=== PATIENT | female | born 1930 | race Caucasian/White ===

== ENCOUNTER 2016-02-18 10:21 | Inpatient (IN) | payer OTHER, MEDICARE ==
[~2016-02-18] VITALS: Ht 165.1 cm; Wt 71.5 kg
[~2016-02-18 10:21] MED LIST: ACET325T96 PO; ASPI325T39 PO; BENZ10LO2 MT; CETI10TA84 PO; CHOL1000 PO; CLC100X PO; DEXT100S; DEXTLIQ PO; DPKSR250 PO; DPKSR500 PO; FERR325T PO; FURO-85 PO; LEVO137T3 PO; LOPE1TAB25 PO; MCRK20 PO; MOML PO; NF84 PO; SENN-104 PO; SENN8.6T15 PO; TRAM-10 PO
--- NOTE | 2016-02-18 10:39 | EMERGENCY ROOM VISIT NOTE ---
History Report prepared by Jenny: Lino Lorenzo Under the Supervision of: Dr. Serenity Hernandez M.D. First contact with patient: 10:25 Chief Complaint: SHORTNESS OF BREATH Stated Complaint: SHORTNESS OF BREATH History of Present Illness The patient is an 85 year old female who presents to the Emergency Room with complaints of a persistent illness that started around a week ago. Per the patient's family, the patient's illness started out with a really sore throat, and then she got this cough that is not going away. The patient has graveling in her chest. Her highest fever has been around 101. She was seen here 6 days ago, and was put on a Z-pac, but the patient is just not fighting her illness off. There is concern among the family of the patient potentially having pneumonia, the flu, or whooping cough. Per the patient, she cannot sleep at night, and is very weak. She then sleeps all day. The patient denies any abdominal pain or swelling in her legs. She has been compliant with all her medications. She lives in a [facility]. The patient denies any history of heart problems. She is on oxygen at home. Source of History: patient, family, nursing staff Onset: Around a week ago Position: other (global - illness) Timing: other (persistent) Associated Symptoms: + cough, + fevers, + sorethroat, + weakness, No abdominal pain Note: Associated symptoms: Denies any swelling in her legs. Graveling in chest. Review of Systems See HPI for pertinent positives & negatives. A total of 10 systems reviewed and were otherwise negative. 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 (14) Rhabdomyolysis Family History Cancer Kidney disease Social History Smoking Status: Former Smoker Alcohol Use: occasionally Drug Use: none Marital Status: Housing Status: [facility] Occupation Status: retired Current/Historical Medications Scheduled Acetaminophen Tab (Tylenol), 650 MG PO HS Aspirin (Aspirin Ec), 325 MG PO DAILY Azithromycin (Zithromax), 250 MG PO DAILY Calcium Carbonate (Calcium Carbonate), 1 TAB PO DAILY Cetirizine (Zyrtec), 10 MG PO HS Cholecalciferol (Vitamin D3), 1 TAB PO DAILY Divalproex Sodium (Divalproex Sodium ER), 250 MG PO DAILY Divalproex Sodium (Divalproex Sodium ER), 500 MG PO HS Docusate Sodium (Colace), 100 MG PO BID Ferrous Sulfate (Ferrous Sulfate), 325 MG PO BID Furosemide (Lasix), 20 MG PO BID Guaifenesin Ext Rel (Mucinex Ext Rel), 600 MG PO BID Ipratropium-Albuterol (Duoneb), 1 TREATMENT INH QID Levothyroxine Sodium (Levothyroxine Sodium), 1 TAB PO DAILY Loperamide Hcl (Loperamide Hcl), 2 MG PO UD Potassium Chloride (Klor-Con M20), 20 MEQ PO QAM Sennosides-Docusate Sodium (Sennalax-S), 1 TAB PO DAILY Scheduled PRN Acetaminophen Tab (Tylenol), 650 MG PO Q4 PRN for Pain or Fever Benzocaine-Menthol (Mouth-Thro (Cepacol Sore Throat), 1 JEAN APUL MT Q4 PRN for SORE THROAT Dextromethorphan-Guaifenesin (Tussin Dm), 5 ML PO Q4 PRN for Cough Magnesium Hydroxide (Milk Of Magnesia), 30 ML PO for Constipation Sennosides-Docusate Sodium (Senna-S), 1 TAB PO Q12 PRN for Constipation Tramadol (Ultram), 50 MG PO Q6 PRN for Pain Allergies Coded Allergies: No Known Allergies (Unverified , 02/12/16) Physical Exam Vital Signs Date Time Temp Pulse Resp B/P Pulse Ox O2 Delivery O2 Flow Rate FiO2 02/18/16 12:14 108 24 112/78 94 Nasal Cannula 3.0 02/18/16 12:03 97 02/18/16 11:28 99 25 113/78 93 Nasal Cannula 2.0 02/18/16 10:33 87 Room Air 02/18/16 10:33 94 Nasal Cannula 2.0 02/18/16 10:31 36.9 105 24 121/66 97 Room Air 02/18/16 10:28 112 Physical Exam CONSTITUTIONAL: Mild distress, on oxygen nasal cannula. HEENT: No icterus, moist mucous membranes NECK: No meningismus, trachea is midline. CARDIOVASCULAR: Regular rate, normal perfusion RESPIRATORY: Very coarse bilaterally with possible rales and rhonchi. Wheezing. GASTROINTESTINAL: Non-tender GENITOURINARY: No flank tenderness MUSCULOSKELETAL: Full range of motion NEUROLOGIC: No acute gross focal deficits. PSYCHIATRIC: Normal affect SKIN: Normal for ethnicity. Medical Decision & Procedures ER Provider Diagnostic Interpretation: X-ray results as stated below per interpretation by me and the radiologist. CHEST 2 VIEWS ROUTINE HISTORY: cough, fever COMPARISON: Chest 02/12/2016. FINDINGS: No pneumothorax. The heart remains mildly enlarged. Trace bilateral pleural effusions. Diffuse interstitial thickening and patchy airspace opacities within the periphery of the right lung and within the lung bases has progressed. A 14 mm nodular density within the right upper lobe persists. IMPRESSION: 1. Progressive interstitial thickening and patchy airspace opacities within the periphery of the right lung and lung bases. This may represent progression of the pulmonary edema or an atypical pneumonia. Recommend follow to ensure resolution. 2. Cardiomegaly and trace bilateral pleural effusions. 3. A 14 mm right upper lobe nodule is again noted. Electronically signed by: Brian Perez M.D. 02/18/2016 11:16 AM Dictated Date/Time: 02/18/2016 11:13 AM Laboratory Results 02/18/16 10:45 Red Blood Count 3.53, Mean Corpuscular Volume 98.6, Mean Corpuscular Hemoglobin 32.0, Mean Corpuscular Hemoglobin Concent 32.5, Mean Platelet Volume 11.1, Neutrophils (%) (Auto) 75.6, Lymphocytes (%) (Auto) 8.0, Monocytes (%) (Auto) 14.8, Eosinophils (%) (Auto) 0.2, Basophils (%) (Auto) 0.3, Neutrophils # (Auto ) 7.74, Lymphocytes # (Auto) 0.82, Monocytes # (Auto) 1.52, Eosinophils # (Auto ) 0.02, Basophils # (Auto) 0.03 02/18/16 10:45 Test 02/18/16 10:45 02/18/16 11:15 02/18/16 13:10 White Blood Count 10.24 K/uL (4.8-10.8) Red Blood Count 3.53 M/uL (4.2-5.4) Hemoglobin 11.3 g/dL (12.0-16.0) Hematocrit 34.8 % (37-47) Mean Corpuscular Volume 98.6 fL (80-100) Mean Corpuscular Hemoglobin 32.0 pg (25-34) Mean Corpuscular Hemoglobin Concent 32.5 g/dl (32-36) Platelet Count 237 K/uL (130-400) Mean Platelet Volume 11.1 fL (7.4-10.4) Neutrophils (%) (Auto) 75.6 % Lymphocytes (%) (Auto) 8.0 % Monocytes (%) (Auto) 14.8 % Eosinophils (%) (Auto) 0.2 % Basophils (%) (Auto) 0.3 % Neutrophils # (Auto) 7.74 K/uL (1.4-6.5) Lymphocytes # (Auto) 0.82 K/uL (1.2-3.4) Monocytes # (Auto) 1.52 K/uL (0.11-0.59) Eosinophils # (Auto) 0.02 K/uL (0-0.5) Basophils # (Auto) 0.03 K/uL (0-0.2) RDW Standard Deviation 52.9 fL (36.4-46.3) RDW Coefficient of Variation 14.8 % (11.5-14.5) Immature Granulocyte % (Auto) 1.1 % Immature Granulocyte # (Auto) 0.11 K/uL (0.00-0.02) Nucleated RBC Absolute Count (auto) 0.05 K/uL (0-0) Nucleated Red Blood Cells % 0.5 % Anion Gap 8.0 mmol/L (3-11) Est Creatinine Clear Calc Drug Dose 48.0 ml/min Estimated GFR () 71.9 Estimated GFR (Non- 62.0 BUN/Creatinine Ratio 28.1 (10-20) Calcium Level 9.0 mg/dl (8.5-10.1) Phosphorus Level 2.9 mg/dl (2.5-4.9) Magnesium Level 2.3 mg/dl (1.8-2.4) Total Bilirubin 0.4 mg/dl (0.2-1) Aspartate Amino Transf (AST/SGOT) 14 U/L (15-37) Alanine Aminotransferase (ALT/SGPT) 14 U/L (12-78) Alkaline Phosphatase 50 U/L (45-117) Pro-B-Type Natriuretic Peptide 26781 pg/ml (0-1800) Total Protein 6.5 gm/dl (6.4-8.2) Albumin 2.3 gm/dl (3.4-5.0) Globulin 4.2 gm/dl (2.5-4.0) Albumin/Globulin Ratio 0.5 (0.9-2) Influenza Type A Antigen Neg for Influ A (NEG) Influenza Type B Antigen Neg for Influ B (NEG) Labs reviewed by ED physician. Medications Administered Medications (Trade) Dose Ordered Sig/Nasir Route Start Time Stop Time Status Last Admin Dose Admin Albuterol/ Ipratropium (Duoneb) 3 ml QIDR INH 02/18/16 12:00 03/19/16 11:59 02/18/16 12:46 3 ML Albuterol/ Ipratropium (Duoneb) 3 ml STK-MED ONCE .ROUTE 02/18/16 10:48 02/18/16 10:49 DC 02/18/16 10:53 3 ML Furosemide (Lasix Inj) 40 mg NOW STAT IV 02/18/16 12:44 02/18/16 12:45 DC 02/18/16 12:52 40 MG ED Course 1030: Past medical records reviewed. The patient was evaluated in room A2. A complete history and physical examination was performed. 1200: Ordered Duoneb 3 ml INH. 1244: Ordered Lasix Inj 40 mg IV. 1251: Ordered Ceftriaxone Sodium 1 gm/Sodium Chloride 50 ml @ 100 mls/hr IV. 1252: I reevaluated the patient and she is resting comfortably. The patient verbally expressed understanding and agreement of the treatment plan. The patient will be evaluated for further treatment. 1300: Ordered Azithromycin 500 mg/Dextrose 255 ml @ 125 mls/hr IV. 1300: I discussed the patient with Marivel Narvaez - she will evaluate the patient for further treatment. Medical Decision Differential diagnoses include: viral syndrome, CHF, pneumonia. 85-year-old with history of congestive heart failure presents to emergency room with family for evaluation of continued upper respiratory complaints and worsening cough and shortness of breath. She was noted to be recently in the emergency room one week ago prescribe antibiotics receive been compliant. Was reportedly particular course in all dukes with possible wheezes and definitive rales bilaterally at the bases. She was reportedly hypoxic 85% on room air prior to arrival but satting well at about 93% on 2 L nasal cannula. She is on home oxygen. Pediatric peptide noted to be very high in the context of a normal creatinine and chest x-ray equivocal for CHF versus pneumonia. Review of systems was notable for fever to 101 over the last few days and antibiotic subsequently ordered. Influenza negative. Admission arranged with hospital service. Consults Time Called: 1255 Consulting Physician: Marivel Narvaez Returned Call: 1300 I discussed the patient with Marivel Narvaez - she will evaluate the patient for further treatment. Impression Primary Impression: Congestive heart failure Additional Impression: Viral syndrome Scribe Attestation The scribe's documentation has been prepared under my direction and personally reviewed by me in its entirety. I confirm that the note above accurately reflects all work, treatment, procedures, and medical decision making performed by me. Departure Information Dispostion Being Evaluated By Hospitalist Referrals No Doctor, Assigned (PCP) Patient Instructions A Signature Page, My [facility]
[2016-02-18] MEDS ORDERED: ALBUT/IPRATROP 3MG/0.5MG NEB 3 ML VIAL ONE (10:48)
[2016-02-18 11:14] LABS: BASO % 0.3 %; BASO ABS # 0.03 K/uL (0-0.2); COMPLETE YES; EOS % 0.2 %; HEMATOCRIT 34.8 % (37-47); IG% 1.1 %; LYMPH ABS # 0.82 K/uL (1.2-3.4); MEAN CELL VOLUME 98.6 fL (80-100); MEAN CORPUSCULAR HGB CONC 32.5 g/dl (32-36); MEAN PLATELET VOLUME 11.1 fL (7.4-10.4); MONO % 14.8 %; NEUT % 75.6 %; PLATELET COUNT 237 K/uL (130-400); RED BLOOD COUNT 3.53 M/uL (4.2-5.4); WHITE BLOOD COUNT 10.24 K/uL (4.8-10.8)
--- NOTE | 2016-02-18 11:18 | DIAGNOSTIC IMAGING REPORT ---
CHEST 2 VIEWS ROUTINE HISTORY: cough, fever COMPARISON: Chest 02/12/2016. FINDINGS: No pneumothorax. The heart remains mildly enlarged. Trace bilateral pleural effusions. Diffuse interstitial thickening and patchy airspace opacities within the periphery of the right lung and within the lung bases has progressed. A 14 mm nodular density within the right upper lobe persists. IMPRESSION: 1. Progressive interstitial thickening and patchy airspace opacities within the periphery of the right lung and lung bases. This may represent progression of the pulmonary edema or an atypical pneumonia. Recommend follow to ensure resolution. 2. Cardiomegaly and trace bilateral pleural effusions. 3. A 14 mm right upper lobe nodule is again noted. Electronically signed by: Brian Perez M.D. 02/18/2016 11:16 AM Dictated Date/Time: 02/18/2016 11:13 AM
[2016-02-18] MEDS ORDERED: IPRASOL4 INH (11:20)
[2016-02-18] MEDS ORDERED: AZIT250T PO (11:20)
[2016-02-18] MEDS ORDERED: GUAI1TAB55 PO (11:20)
[2016-02-18 11:36] LABS: ALB/GLOB RATIO 0.5 (0.9-2); BUN/CREATININE RATIO 28.1 (10-20); CREATININE 0.85 mg/dl (0.60-1.20); MAGNESIUM 2.3 mg/dl (1.8-2.4); PHOSPHORUS 2.9 mg/dl (2.5-4.9); POTASSIUM 4.8 mmol/L (3.5-5.1)
[2016-02-18] MEDS ORDERED: ALBUT/IPRATROP 3MG/0.5MG NEB 3 ML VIAL INH SCH (12:00)
[2016-02-18] MEDS ORDERED: FUROSEMIDE 40 MG/4 ML VIAL IV STA (12:44)
[2016-02-18] MEDS ORDERED: SODIUM CHLOR 0.9% IV STA (12:51)
[2016-02-18] MEDS ORDERED: AD VAN IV STA (12:51)
[2016-02-18] MEDS ORDERED: CEFTRIAXONE SOD IV STA (12:51)
[2016-02-18] MEDS ORDERED: AZITHROMYCIN IV 500 MG in DEXTROSE 5% 250ML 250 ML IV ONE (13:00)
[2016-02-18 13:57] LABS: URINE APPEARANCE CLEAR (CLEAR); URINE BILIRUBIN NEG (NEG); URINE COLOR YELLOW; URINE NITRITE NEG (NEG); URINE PH 6.5 (4.5-7.5); URINE SPECIFIC GRAVITY 1.013 (1.000-1.030); UROBILINOGEN NEG (NEG); ZZUR CULT IF INDIC CLEAN CATCH NO
[2016-02-18 13:58] LABS: MANUAL MICROSCOPIC REQUIRED? NO; REVIEW REQ? NO
[2016-02-18] MEDS ORDERED: NITROGLYCERIN 0.4 MG SL PER TAB CHARGE SL PRN (14:15)
[2016-02-18] MEDS ORDERED: TRAMADOL HCL 50 MG TAB PO PRN (14:15)
[2016-02-18] MEDS ORDERED: ONDANSETRON INJ 2 MG/ML 2 ML VIAL IV PRN (14:15)
[2016-02-18] MEDS ORDERED: ACETAMINOPHEN 325 MG TAB PO PRN (14:15)
[2016-02-18] MEDS ORDERED: COUGH DROP (SUGAR FREE) LOZ 24 LOZ/1 BOX PO PRN (14:15)
--- NOTE | 2016-02-18 14:26 | History and Physical ---
History & Physical Date & Time of Service: Feb 18, 2016 at 13:52 Chief Complaint: Shortness Of Breath Primary Care Physician: Frantz Valdez D.O. History of Present Illness Source: patient, hospital records, intermediate Patient seen and examined. 85 year old female with PMHx of Alzheimer's dementia , Afib, hypothyroidism, CKD and diastolic CHF presents to the ED with hypoxia at [facility] this morning. Patient reports that she has had a sore throat for over a week now. She reports she now has a cough that is wet but not usually productive. She states the intermediate has told her she has been having fevers. She reports she has been weak and tired because her cough keeps her up all night. She denies chest pain, SOB, nausea, vomiting, diarrhea, dysuria, calf pain and edema. I spoke with [facility] who stated this morning patient's pulse ox was in the 80s, they report she had a fever of 101.3 and that her lungs sounded coarse so they sent her to the ED for further evaluation. Patient is not on oxygen at baseline. Patient has been on a Zpak for four days. In the ED patient was hypoxic on RA. She will mildly tachycardic , but afebrile, BNP was 14K, CXR showed possible pneumonia versus pulmonary edema. She received Lasix, duonebs, azithromycin and Rocephin. She will be admitted for further workup and treatment. 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 Status: Chronic (14) Rhabdomyolysis Status: Resolved Family History Cancer Kidney disease Social History Smoking Status: Former Smoker Alcohol Use: none Drug Use: none Marital Status: Housing status: intermediate Occupational Status: retired Immunizations History of Influenza Vaccine: N/A History of Tetanus Vaccine?: Yes History of Pneumococcal: Yes History of Hepatitis B Vaccine: Unknown Multi-Drug Resistant Organisms History of MDRO: No Allergies Coded Allergies: No Known Allergies (Unverified , 02/12/16) Home Medications Scheduled Acetaminophen Tab (Tylenol), 650 MG PO HS Aspirin (Aspirin Ec), 325 MG PO DAILY Azithromycin (Zithromax), 250 MG PO DAILY Calcium Carbonate (Calcium Carbonate), 1 TAB PO DAILY Cetirizine (Zyrtec), 10 MG PO HS Cholecalciferol (Vitamin D3), 1 TAB PO DAILY Divalproex Sodium (Divalproex Sodium ER), 250 MG PO DAILY Divalproex Sodium (Divalproex Sodium ER), 500 MG PO HS Docusate Sodium (Colace), 100 MG PO BID Ferrous Sulfate (Ferrous Sulfate), 325 MG PO BID Furosemide (Lasix), 20 MG PO BID Guaifenesin Ext Rel (Mucinex Ext Rel), 600 MG PO BID Ipratropium-Albuterol (Duoneb), 1 TREATMENT INH QID Levothyroxine Sodium (Levothyroxine Sodium), 1 TAB PO DAILY Loperamide Hcl (Loperamide Hcl), 2 MG PO UD Potassium Chloride (Klor-Con M20), 20 MEQ PO QAM Sennosides-Docusate Sodium (Sennalax-S), 1 TAB PO DAILY Scheduled PRN Acetaminophen Tab (Tylenol), 650 MG PO Q4 PRN for Pain or Fever Benzocaine-Menthol (Mouth-Thro (Cepacol Sore Throat), 1 JEAN PAUL MT Q4 PRN for SORE THROAT Dextromethorphan-Guaifenesin (Tussin Dm), 5 ML PO Q4 PRN for Cough Magnesium Hydroxide (Milk Of Magnesia), 30 ML PO for Constipation Sennosides-Docusate Sodium (Senna-S), 1 TAB PO Q12 PRN for Constipation Tramadol (Ultram), 50 MG PO Q6 PRN for Pain Review of Systems See above for pertinent positives & negatives. A total of 10 systems reviewed and were otherwise negative. Physical Exam Vital Signs Date Time Temp Pulse Resp B/P Pulse Ox O2 Delivery O2 Flow Rate FiO2 02/18/16 13:47 114 22 118/82 94 Nasal Cannula 3.0 02/18/16 12:14 108 24 112/78 94 Nasal Cannula 3.0 1/6/17 12:03 97 02/18/16 11:28 99 25 113/78 93 Nasal Cannula 2.0 02/18/16 10:33 87 Room Air 02/18/16 10:33 94 Nasal Cannula 2.0 02/18/16 10:31 36.9 105 24 121/66 97 Room Air 02/18/16 10:28 112 General Appearance: + pertinent finding (WD/WN 85 year old female sitting at the edge of the bed eating lunch, in NAD ) Head: normocephalic, atraumatic Eyes: PERRL, EOMI, sclerae normal ENT: hearing grossly normal, pharynx normal Neck: supple, no JVD, trachea midline Respiratory/Chest: chest non-tender, no respiratory distress, no accessory muscle use, + crackles (right base, otherwise clear ) Cardiovascular: no edema, no gallop, no JVD, no murmur, normal peripheral pulses, + irregularly irregular (rate in the low 100s ) Abdomen/GI: normal bowel sounds, non tender, soft Back: normal inspection, no muscle spasm Extremities/Musculoskelatal: no calf tenderness, normal capillary refill, no pedal edema Neurologic/Psych: + pertinent finding (Alert, oriented to person, place, and situation, not oriented to time. No motor or sensory deficits noted on gross exam ) Skin: normal color, warm/dry, no rash Lymphatic: no adenopathy Diagnostics Laboratory Results Results Past 24 Hours Test 02/18/16 10:45 02/18/16 11:15 02/18/16 13:10 02/18/16 13:30 Range/Units White Blood Count 10.24 4.8-10.8 K/uL Red Blood Count 3.53 4.2-5.4 M/uL Hemoglobin 11.3 12.0-16.0 g/dL Hematocrit 34.8 37-47 % Mean Corpuscular Volume 98.6 80-100 fL Mean Corpuscular Hemoglobin 32.0 25-34 pg Mean Corpuscular Hemoglobin Concent 32.5 32-36 g/dl Platelet Count 237 130-400 K/uL Mean Platelet Volume 11.1 7.4-10.4 fL Neutrophils (%) (Auto) 75.6 % Lymphocytes (%) (Auto) 8.0 % Monocytes (%) (Auto) 14.8 % Eosinophils (%) (Auto) 0.2 % Basophils (%) (Auto) 0.3 % Neutrophils # (Auto) 7.74 1.4-6.5 K/uL Lymphocytes # (Auto) 0.82 1.2-3.4 K/uL Monocytes # (Auto) 1.52 0.11-0.59 K/uL Eosinophils # (Auto) 0.02 0-0.5 K/uL Basophils # (Auto) 0.03 0-0.2 K/uL RDW Standard Deviation 52.9 36.4-46.3 fL RDW Coefficient of Variation 14.8 11.5-14.5 % Immature Granulocyte % (Auto) 1.1 % Immature Granulocyte # (Auto) 0.11 0.00-0.02 K/uL Nucleated RBC Absolute Count (auto) 0.05 0-0 K/uL Nucleated Red Blood Cells % 0.5 % Sodium Level 141 136-145 mmol/L Potassium Level 4.8 3.5-5.1 mmol/L Chloride Level 102 98-107 mmol/L Carbon Dioxide Level 31 21-32 mmol/L Anion Gap 8.0 3-11 mmol/L Blood Urea Nitrogen 24 7-18 mg/dl Creatinine 0.85 0.60-1.20 mg/dl Est Creatinine Clear Calc Drug Dose 48.0 ml/min Estimated GFR () 71.9 Estimated GFR (Non- 62.0 BUN/Creatinine Ratio 28.1 10-20 Random Glucose 131 70-99 mg/dl Calcium Level 9.0 8.5-10.1 mg/dl Phosphorus Level 2.9 2.5-4.9 mg/dl Magnesium Level 2.3 1.8-2.4 mg/dl Total Bilirubin 0.4 0.2-1 mg/dl Aspartate Amino Transf (AST/SGOT) 14 15-37 U/L Alanine Aminotransferase (ALT/SGPT) 14 12-78 U/L Alkaline Phosphatase 50 45-117 U/L Troponin I 0.034 0-0.045 ng/ml Pro-B-Type Natriuretic Peptide 27398 0-1800 pg/ml Total Protein 6.5 6.4-8.2 gm/dl Albumin 2.3 3.4-5.0 gm/dl Globulin 4.2 2.5-4.0 gm/dl Albumin/Globulin Ratio 0.5 0.9-2 Influenza Type A Antigen Neg for Influ A NEG Influenza Type B Antigen Neg for Influ B NEG Microbiology Results 02/18/16 Blood Culture, Received Pending 02/18/16 Blood Culture, Received Pending Diagnostic Radiology CXR Per radiologist read: IMPRESSION: 1. Progressive interstitial thickening and patchy airspace opacities within the periphery of the right lung and lung bases. This may represent progression of the pulmonary edema or an atypical pneumonia. Recommend follow to ensure resolution. 2. Cardiomegaly and trace bilateral pleural effusions. 3. A 14 mm right upper lobe nodule is again noted. EKG Atrial Fibrillation 113 BPM, QTc 433 Impression Assessment and Plan 85 year old female presents complaining of cough, sore throat. Was hypoxic on RA at intermediate this morning and febrile Tmax 101.3 ACUTE HYPOXIA -PNEUMONIA VERSUS CONGESTIVE HEART FAILURE -admit to tele -CXR with atypical pneumonia versus pulmonary edema, BNP 14K, clinically appears to be more likely be pneumonia -Flu negative, afebrile, no leukocytosis -received duonebs, Rocephin, azithromycin and IV lasix in ED -will continue Rocephin and azithromycin for likely pneumonia -blood cultures, sputum cultures pending -Xoponex nebs QID -Resume outpatient po Lasix of 20mg BID -Tylenol prn fever -prn antitussives -Repeat CXR -oxygen prn -CBC, PRP, Mg daily AFIB -slightly tachy, likely secondary to acute illness -monitor in tele -continue Aspirin ALZHEIMER'S DEMENTIA -pleasantly confused -caution for -continue Depakote -fall precautions IRON DEFICIENCY ANEMIA -hgb stable -continue iron supplement -follow H&H DIASTOLIC CHF -possible exacerbation, BNP 14K, but appears euvolemic -Received 40mg IV lasix in ED -will continue outpatient 20mg lasix BID -repeat CXR in AM HYPOTHYROIDISM -continue Synthroid DVT PROPHYLAXIS: Sq lovenox CODE STATUS: LEVEL 5 DNR per POLST form DISPO:In my clinical judgment this beneficiary meets acute admission criteria, established by [facility], that includes being hospitalized through two midnights. Patient seen in collaboration with Dr. Guerra Attending Addendum Pt was seen and examined. Agree with Emily's PA exam, assessment and plan. Patient seen and examined. 85 year old female with PMHx of Alzheimer's dementia , Afib, hypothyroidism, CKD and diastolic CHF presents to the ED with C/O of cough. he was hypoxia at [facility] this morning. denies any fever, chest pain. General- very pleasant, mild respiratory distress Head- atraumatic Eyes- PERRL, EOMI ENT- oropharynx clear Neck- supple, no JVD Lungs- +Crackle at base Heart- irregular rhythm Abdomen- normal bowel sounds, soft A/p ACUTE HYPOXIA ASSOCIATED WITH COUGH possible related to PNA vs CHF exacerbation - CXR shown Progressive interstitial thickening and patchy airspace opacities within the periphery of the right lung and lung bases -Flu negative, afebrile, no leukocytosis -received duonebs, Rocephin, azithromycin and IV lasix in ED -will continue Rocephin and azithromycin -blood cultures, sputum cultures pending -Continue oxygen supplement - Will add steroid Lab, imaging, EKG reviewed Please refer to Emily's PA documentation for other problems. Radha Guerra MD
[2016-02-18] MEDS: LEVALBUTEROL 1.25MG/0.5ML NEB INH SCH ×2 (15:00→20:59)
[2016-02-18] MEDS ORDERED: LEVALBUTEROL/IPRATROPIUM NEB INH SCH (15:00)
[2016-02-18] MEDS: IPRATROPIUM BROMIDE NEB SOLN 0.02% 2.5 ML VIAL INH SCH ×2 (15:00→20:59)
[2016-02-18 16:20] VITALS: BP 113/57; PULSE 104; TEMP 37; O2SAT 99; Ht 165.1 cm; Wt 71.5 kg
[2016-02-18] MEDS: FUROSEMIDE 20 MG TAB PO SCH (18:20)
[2016-02-18 19:54] VITALS: BP 97/63; PULSE 93; TEMP 36.6; O2SAT 90
[2016-02-18 20:00] VITALS: O2SAT 98
[2016-02-18] MEDS: FERROUS SULFATE 325 MG TAB PO SCH (20:10)
[2016-02-18] MEDS: DOCUSATE SODIUM 100 MG CAP PO SCH (20:11)
[2016-02-18] MEDS: ACETAMINOPHEN 325 MG TAB PO SCH (20:12)
[2016-02-18] MEDS: GUAIFENESIN 600 MG TABCR PO SCH (20:12)
[2016-02-18] MEDS: DIVALPROEX 500 MG EXTENDED RELEASE TAB PO SCH (20:13)
[2016-02-18] MEDS: CETIRIZINE HCL 10 MG TAB PO SCH (20:13)
[2016-02-18] MEDS: ENOXAPARIN 40 MG/0.4 ML SYR SC SCH (20:14)
[2016-02-18 21:03] VITALS: PULSE 88; O2SAT 97
[2016-02-19] VITALS (13 sets, daily range): BP systolic 99–111; BP diastolic 62–75; PULSE 64–103; TEMP 36.5–37; O2SAT 90–97
[2016-02-19] MEDS: IPRATROPIUM BROMIDE NEB SOLN 0.02% 2.5 ML VIAL INH SCH ×4 (02:01→21:18)
[2016-02-19] MEDS: LEVALBUTEROL 1.25MG/0.5ML NEB INH SCH ×4 (02:01→21:18)
[2016-02-19] MEDS: LEVOTHYROXINE 137 MCG TAB PO SCH (06:18)
[2016-02-19 07:04] LABS: HEMATOCRIT 34.1 % (37-47); MEAN CORPUSCULAR HEMOGLOBIN 31.9 pg (25-34); MEAN CORPUSCULAR HGB CONC 32.6 g/dl (32-36); MEAN PLATELET VOLUME 11.1 fL (7.4-10.4); PLATELET COUNT 246 K/uL (130-400); RED BLOOD COUNT 3.48 M/uL (4.2-5.4); WHITE BLOOD COUNT 10.71 K/uL (4.8-10.8)
[2016-02-19 07:38] LABS: BUN/CREATININE RATIO 36.3 (10-20); CALCIUM 8.5 mg/dl (8.5-10.1); CREATININE 0.94 mg/dl (0.60-1.20); MAGNESIUM 2.6 mg/dl (1.8-2.4); POTASSIUM 4.9 mmol/L (3.5-5.1)
[2016-02-19] MEDS: CALCIUM CARBONATE 1250MG TAB PO SCH (08:06)
[2016-02-19] MEDS: DIVALPROEX 250 MG EXTENDED REL TAB PO SCH (08:06)
[2016-02-19] MEDS: GUAIFENESIN 600 MG TABCR PO SCH ×2 (08:07→20:57)
[2016-02-19] MEDS: CHOLECALCIFEROL 1000 INTER.UNIT TAB PO SCH (08:07)
[2016-02-19] MEDS: DOCUSATE SODIUM/SENNA 50/8.6MG TAB PO SCH (08:07)
[2016-02-19] MEDS: DOCUSATE SODIUM 100 MG CAP PO SCH ×2 (08:07→20:57)
[2016-02-19] MEDS: POTASSIUM CHLORIDE 20 MEQ TABCR PO SCH (08:09)
[2016-02-19] MEDS: ASPIRIN 325 MG ECTAB PO SCH (08:09)
[2016-02-19] MEDS: FUROSEMIDE 20 MG TAB PO SCH ×2 (08:10→17:35)
[2016-02-19] MEDS: FERROUS SULFATE 325 MG TAB PO SCH ×2 (08:10→20:57)
[2016-02-19] MEDS ORDERED: METHYLPREDNISOLONE IV 40 MG in SYRINGE 0 ML IV ONE (09:02)
--- NOTE | 2016-02-19 09:35 | DIAGNOSTIC IMAGING REPORT ---
CHEST 2 VIEWS ROUTINE CLINICAL HISTORY: Follow-up pneumonia versus congestive heart failure. COMPARISON STUDY: Chest radiograph July or 2016. FINDINGS: A 1.4 cm nodular opacity within the right upper lobe is again noted. Right apical density is also noted. Cardiomegaly is unchanged. There are trace bilateral pleural effusions. There is no pneumothorax. Interstitial thickening persists although slightly improved. IMPRESSION: 1. Persistent, but mildly improved, interstitial thickening. This could reflect pulmonary edema or an infectious process. 2. Trace bilateral pleural effusions. 3. 1.4 cm nodular density within the right upper lung. This is indeterminate and a neoplasm is within the differential. In addition, a right apical density is indeterminate. 3. Moderate emphysema. Electronically signed by: Rodri Palacios M.D. 02/19/2016 9:33 AM Dictated Date/Time: 02/19/2016 9:29 AM
[2016-02-19] MEDS: METHYLPREDNISOLONE IV 40 MG in SYRINGE 0 ML IV SCH ×2 (10:47→20:57)
--- NOTE | 2016-02-19 11:22 | Progress Note ---
Medicine Progress Note Date & Time of Visit: Feb 19, 2016 at 10:56. Subjective Pt was seen and examined Lying in bed comfortable with no distress Pt said that she feels a little better this morning denies any fever, palpitation and chest pain Her breathing is slightly improved. Objective Last 8 Hrs Date Time Temp Pulse Resp B/P Pulse Ox O2 Delivery O2 Flow Rate FiO2 02/19/16 08:10 36.5 103 20 110/75 94 Room Air 02/19/16 07:24 81 16 97 Room Air 02/19/16 04:00 36.7 88 20 111/69 92 Room Air 02/19/16 04:00 97 Room Air Physical Exam: General- No acute distress Head- atraumatic Eyes- PERRL, EOMI ENT- oropharynx clear Neck- supple, no JVD Lungs- +wheezing, coarse BS Heart- irregular rhythm; no murmur Abdomen- normal bowel sounds, soft, nontender Extremities- no calf tenderness Neuro- alert, oriented, PERRL Skin- warm & dry Laboratory Results: Last 24 Hours Test 02/18/16 11:15 02/18/16 13:30 02/18/16 14:00 02/19/16 06:22 Influenza Type A Antigen Neg for Influ A Influenza Type B Antigen Neg for Influ B Urine Color YELLOW Urine Appearance CLEAR Urine pH 6.5 Urine Specific [place] 1.013 Urine Protein NEG Urine Glucose (UA) NEG Urine Ketones TRACE Urine Occult Blood NEG Urine Nitrite NEG Urine Bilirubin NEG Urine Urobilinogen NEG Urine Leukocyte Esterase NEG Troponin I 0.026 ng/ml White Blood Count 10.71 K/uL Red Blood Count 3.48 M/uL Hemoglobin 11.1 g/dL Hematocrit 34.1 % Mean Corpuscular Volume 98.0 fL Mean Corpuscular Hemoglobin 31.9 pg Mean Corpuscular Hemoglobin Concent 32.6 g/dl RDW Standard Deviation 52.7 fL RDW Coefficient of Variation 14.7 % Platelet Count 246 K/uL Mean Platelet Volume 11.1 fL Nucleated RBC Absolute Count (auto) 0.04 K/uL Nucleated Red Blood Cells % 0.3 % Sodium Level 140 mmol/L Potassium Level 4.9 mmol/L Chloride Level 101 mmol/L Carbon Dioxide Level 31 mmol/L Anion Gap 8.0 mmol/L Blood Urea Nitrogen 34 mg/dl Creatinine 0.94 mg/dl Est Creatinine Clear Calc Drug Dose 43.4 ml/min Estimated GFR () 63.7 Estimated GFR (Non- 54.9 BUN/Creatinine Ratio 36.3 Random Glucose 121 mg/dl Calcium Level 8.5 mg/dl Magnesium Level 2.6 mg/dl Date/Time Source Procedure Growth Status 02/18/16 11:10 Blood Blood Culture Pending Received Assessment & Plan ACUTE HYPOXIA WITH RESPIRATORY DISTRESS Possible related to Pneumonia VS CHF -CXR on admission showed Progressive interstitial thickening and patchy airspace opacities within the periphery of the right lung and lung bases. Could represent pneumonia versus pulmonary edema. -Flu negative, afebrile, no leukocytosis -Continue Rocephin, azithromycin and lasix Repeat CXR this morning showed Persistent, but mildly improved, interstitial thickening. This could reflect pulmonary edema or an infectious process. -blood cultures, sputum cultures pending -Continue breathing treatment -Will start on solumedrol 40mg BID RIGHT LUNG NODULES CXR showed a1.4 cm nodular density within the right upper lung. Compared to the 07/27 chest xray that showed a linear density within the Right upper zone Seems unchanged Need to follow up as an outpatient AFIB -monitor in tele -continue Aspirin -Stable ALZHEIMER'S DEMENTIA -pleasantly confused -caution for -continue Depakote -fall precautions - Stable IRON DEFICIENCY ANEMIA -hgb on admission 11.3 Hgb today 11.1 -continue iron supplement DIASTOLIC CHF -possible exacerbation, BNP 14K, but appears euvolemic -Received 40mg IV lasix in ED -will continue outpatient 20mg lasix BID - Stable HYPOTHYROIDISM -continue Synthroid DVT PROPHYLAXIS: Sq lovenox CODE STATUS: DNR Current Inpatient Medications: Current Inpatient Medications Medications (Trade) Dose Ordered Sig/Nasir Route Start Time Stop Time Status Last Admin Dose Admin Enoxaparin Sodium (Lovenox Inj) 40 mg QPM SC 02/18/16 21:00 03/19/16 20:59 02/18/16 20:14 40 MG Acetaminophen (Tylenol Tab) 650 mg Q4H PRN PO 02/18/16 14:15 03/19/16 14:14 Ondansetron HCl (Zofran Inj) 4 mg Q6H PRN IV 02/18/16 14:15 03/19/16 14:14 Nitroglycerin 0.4 mg 0.4 mg UD PRN SL 02/18/16 14:15 03/19/16 14:14 Azithromycin 500 mg/Dextrose 255 ml @ 125 mls/hr Q24H IV 02/19/16 14:00 02/24/16 16:03 Ceftriaxone Sodium/Dextrose (Rocephin Inj/ Dextrose Add-[place] 50ML) 50 ml @ 100 mls/hr Q24H IV 02/19/16 13:00 02/24/16 13:29 Acetaminophen (Tylenol Tab) 650 mg HS PO 02/18/16 21:00 03/19/16 20:59 02/18/16 20:12 650 MG Aspirin (Ecotrin Tab) 325 mg DAILY PO 02/19/16 09:00 03/20/16 08:59 02/19/16 08:09 325 MG Cetirizine HCl (zyrTEC TAB) 10 mg HS PO 02/18/16 21:00 03/19/16 20:59 02/18/16 20:13 10 MG Cholecalciferol (Vitamin D Tab) 1,000 inter.unit DAILY PO 02/19/16 09:00 03/20/16 08:59 02/19/16 08:07 1,000 INTER.UNIT Divalproex Sodium (Depakote Extended Rel Tab) 250 mg DAILY PO 02/19/16 09:00 03/20/16 08:59 02/19/16 08:06 250 MG Divalproex Sodium (Depakote Extended Rel Tab) 500 mg HS PO 02/18/16 21:00 03/19/16 20:59 02/18/16 20:13 500 MG Docusate Sodium (coLACE CAP) 100 mg BID PO 02/18/16 21:00 03/19/16 20:59 02/19/16 08:07 100 MG Furosemide (Lasix tab) 20 mg BID17 PO 02/18/16 17:00 03/19/16 16:59 02/19/16 08:10 20 MG Guaifenesin (Mucinex Contr Rel Tab) 600 mg BID PO 02/18/16 21:00 03/19/16 20:59 02/19/16 08:07 600 MG Levothyroxine Sodium (Synthroid Tab) 137 mcg DAILYBB PO 02/19/16 06:00 03/20/16 06:59 02/19/16 06:18 137 MCG Potassium Chloride (Klor-Con Tab) 20 meq QAM PO 02/19/16 09:00 03/20/16 08:59 02/19/16 08:09 20 MEQ Senna/Docusate Sodium (Senokot S Tab) 1 tab DAILY PO 02/19/16 09:00 03/20/16 08:59 02/19/16 08:07 1 TAB Tramadol HCl (Ultram Tab) 50 mg Q6 PRN PO 02/18/16 14:15 03/19/16 14:14 Menthol (Nice Rosa) 1 rosa Q4 PRN PO 02/18/16 14:15 03/19/16 14:14 Calcium Carbonate (oS-Christopher 500 TAB) 1,250 mg DAILY PO 02/19/16 09:00 03/20/16 08:59 02/19/16 08:06 1,250 MG Ferrous Sulfate (Feosol Tab) 325 mg BID PO 02/18/16 21:00 03/19/16 20:59 02/19/16 08:10 325 MG Ipratropium [place] (Atrovent 0.02% 0.5MG/2.5ML Neb) 0.5 mg Q6R INH 02/18/16 15:00 03/19/16 14:59 02/19/16 07:24 0.5 MG Levalbuterol 1.25 mg 1.25 mg Q6R INH 02/18/16 15:00 03/19/16 14:59 02/19/16 07:24 1.25 MG Methylprednisolone Sodium Succinate/ Syringe (Solu-Medrol IV/ Syringe) 0.64 ml @ 1.5 mls/min Q12H IV 02/19/16 09:00 03/20/16 08:59 02/19/16 10:47 1.5 MLS/MIN
[2016-02-19] MEDS: AZITHROMYCIN IV 500 MG in DEXTROSE 5% 250ML 250 ML IV SCH (15:00)
[2016-02-19] MEDS: CEFTRIAXONE SOD INJ 1 GM in DEXTROSE 5% ADD-VANTAGE 50ML 50 ML IV SCH (15:47)
[2016-02-19] MEDS: CETIRIZINE HCL 10 MG TAB PO SCH (20:57)
[2016-02-19] MEDS: DIVALPROEX 500 MG EXTENDED RELEASE TAB PO SCH (20:57)
[2016-02-19] MEDS: ENOXAPARIN 40 MG/0.4 ML SYR SC SCH (20:57)
[2016-02-19] MEDS: ACETAMINOPHEN 325 MG TAB PO SCH (20:58)
[2016-02-20] VITALS (11 sets, daily range): BP systolic 106–132; BP diastolic 68–85; PULSE 74–95; TEMP 36.4–36.9; O2SAT 90–97
[2016-02-20] MEDS: IPRATROPIUM BROMIDE NEB SOLN 0.02% 2.5 ML VIAL INH SCH ×4 (02:00→19:58)
[2016-02-20] MEDS: LEVALBUTEROL 1.25MG/0.5ML NEB INH SCH ×4 (02:01→19:58)
[2016-02-20] MEDS: LEVOTHYROXINE 137 MCG TAB PO SCH (06:48)
[2016-02-20] MEDS: ASPIRIN 325 MG ECTAB PO SCH (09:37)
[2016-02-20] MEDS: POTASSIUM CHLORIDE 20 MEQ TABCR PO SCH (09:37)
[2016-02-20] MEDS: FUROSEMIDE 20 MG TAB PO SCH ×2 (09:37→17:46)
[2016-02-20] MEDS: METHYLPREDNISOLONE IV 40 MG in SYRINGE 0 ML IV SCH ×3 (09:37→20:53)
[2016-02-20] MEDS: DIVALPROEX 250 MG EXTENDED REL TAB PO SCH (09:37)
[2016-02-20] MEDS: GUAIFENESIN 600 MG TABCR PO SCH (09:37)
[2016-02-20] MEDS: CALCIUM CARBONATE 1250MG TAB PO SCH (09:37)
[2016-02-20] MEDS: DOCUSATE SODIUM/SENNA 50/8.6MG TAB PO SCH (09:37)
[2016-02-20] MEDS: FERROUS SULFATE 325 MG TAB PO SCH ×2 (09:38→20:52)
[2016-02-20] MEDS: DOCUSATE SODIUM 100 MG CAP PO SCH ×2 (09:38→20:52)
[2016-02-20] MEDS: CHOLECALCIFEROL 1000 INTER.UNIT TAB PO SCH (09:38)
--- NOTE | 2016-02-20 12:36 | Progress Note ---
Medicine Progress Note Date & Time of Visit: Feb 20, 2016 at 12:12. Subjective Pt was seen and examined sitting in chair eating lunch Pt said that she feels better today but she continue to cough denies any fever, palpitation, dizziness and chest pain Objective Last 8 Hrs Date Time Temp Pulse Resp B/P Pulse Ox O2 Delivery O2 Flow Rate FiO2 02/20/16 12:02 36.9 88 20 108/69 93 Room Air 02/20/16 08:19 36.4 90 20 132/85 94 Room Air 02/20/16 08:00 97 Room Air 02/20/16 07:21 87 16 91 Room Air Physical Exam: General- No acute distress Head- atraumatic Eyes- PERRL, EOMI ENT- oropharynx clear Neck- supple, no JVD Lungs- +wheezing, Crackles at base Heart- irregular rhythm Abdomen- normal bowel sounds, soft, nontender Extremities- no calf tenderness Neuro- alert, oriented, PERRL Skin- warm & dry Assessment & Plan ACUTE HYPOXIA WITH RESPIRATORY DISTRESS Possible related to Pneumonia VS CHF -CXR on admission showed Progressive interstitial thickening and patchy airspace opacities within the periphery of the right lung and lung bases. Could represent pneumonia versus pulmonary edema. -Flu negative, afebrile, no leukocytosis -Continue Rocephin, azithromycin and lasix Repeat CXR this morning showed Persistent, but mildly improved, interstitial thickening. This could reflect pulmonary edema or an infectious process. -blood cultures, sputum cultures pending -Continue breathing treatment -continue solumedrol at 40mg TID and guaifenesin - Will transition to PO abx tomorrow upon discharge RIGHT LUNG NODULES CXR showed a1.4 cm nodular density within the right upper lung. Compared to the 07/27 chest xray that showed a linear density within the Right upper zone Seems unchanged Need to follow up as an outpatient AFIB -monitor in tele -continue Aspirin -Stable ALZHEIMER'S DEMENTIA -pleasantly confused -caution for ing -continue Depakote -fall precautions - Stable IRON DEFICIENCY ANEMIA -hgb on admission 11.3 -continue iron supplement Stable DIASTOLIC CHF -possible exacerbation, BNP 14K, but appears euvolemic -Received 40mg IV lasix in ED -will continue outpatient 20mg lasix BID - Stable HYPOTHYROIDISM -continue Synthroid DVT PROPHYLAXIS: Sq lovenox CODE STATUS: DNR Current Inpatient Medications: Current Inpatient Medications Medications (Trade) Dose Ordered Sig/Nasir Route Start Time Stop Time Status Last Admin Dose Admin Enoxaparin Sodium (Lovenox Inj) 40 mg QPM SC 02/18/16 21:00 03/19/16 20:59 02/19/16 20:57 40 MG Acetaminophen (Tylenol Tab) 650 mg Q4H PRN PO 02/18/16 14:15 03/19/16 14:14 Ondansetron HCl (Zofran Inj) 4 mg Q6H PRN IV 02/18/16 14:15 03/19/16 14:14 Nitroglycerin 0.4 mg 0.4 mg UD PRN SL 02/18/16 14:15 03/19/16 14:14 Azithromycin 500 mg/Dextrose 255 ml @ 125 mls/hr Q24H IV 02/19/16 14:00 02/24/16 16:03 02/19/16 15:00 125 MLS/HR Ceftriaxone Sodium/Dextrose (Rocephin Inj/ Dextrose Add-[place] 50ML) 50 ml @ 100 mls/hr Q24H IV 02/19/16 13:00 02/24/16 13:29 02/19/16 15:47 100 MLS/HR Acetaminophen (Tylenol Tab) 650 mg HS PO 02/18/16 21:00 03/19/16 20:59 02/19/16 20:58 650 MG Aspirin (Ecotrin Tab) 325 mg DAILY PO 02/19/16 09:00 03/20/16 08:59 02/20/16 09:37 325 MG Cetirizine HCl (zyrTEC TAB) 10 mg HS PO 02/18/16 21:00 03/19/16 20:59 02/19/16 20:57 10 MG Cholecalciferol (Vitamin D Tab) 1,000 inter.unit DAILY PO 02/19/16 09:00 03/20/16 08:59 02/20/16 09:38 1,000 INTER.UNIT Divalproex Sodium (Depakote Extended Rel Tab) 250 mg DAILY PO 02/19/16 09:00 03/20/16 08:59 02/20/16 09:37 250 MG Divalproex Sodium (Depakote Extended Rel Tab) 500 mg HS PO 02/18/16 21:00 2/5/17 20:59 02/19/16 20:57 500 MG Docusate Sodium (coLACE CAP) 100 mg BID PO 02/18/16 21:00 03/19/16 20:59 02/20/16 09:38 100 MG Furosemide (Lasix tab) 20 mg BID17 PO 02/18/16 17:00 03/19/16 16:59 02/20/16 09:37 20 MG Guaifenesin (Mucinex Contr Rel Tab) 600 mg BID PO 02/18/16 21:00 03/19/16 20:59 02/20/16 09:37 600 MG Levothyroxine Sodium (Synthroid Tab) 137 mcg DAILYBB PO 02/19/16 06:00 03/20/16 06:59 02/20/16 06:48 137 MCG Potassium Chloride (Klor-Con Tab) 20 meq QAM PO 02/19/16 09:00 03/20/16 08:59 02/20/16 09:37 20 MEQ Senna/Docusate Sodium (Senokot S Tab) 1 tab DAILY PO 02/19/16 09:00 03/20/16 08:59 02/20/16 09:37 1 TAB Tramadol HCl (Ultram Tab) 50 mg Q6 PRN PO 02/18/16 14:15 03/19/16 14:14 Menthol (Nice Rosa) 1 rosa Q4 PRN PO 02/18/16 14:15 03/19/16 14:14 Calcium Carbonate (oS-Christopher 500 TAB) 1,250 mg DAILY PO 02/19/16 09:00 03/20/16 08:59 02/20/16 09:37 1,250 MG Ferrous Sulfate (Feosol Tab) 325 mg BID PO 02/18/16 21:00 03/19/16 20:59 02/20/16 09:38 325 MG Ipratropium [place] (Atrovent 0.02% 0.5MG/2.5ML Neb) 0.5 mg Q6R INH 02/18/16 15:00 03/19/16 14:59 02/20/16 07:21 0.5 MG Levalbuterol 1.25 mg 1.25 mg Q6R INH 02/18/16 15:00 03/19/16 14:59 02/20/16 07:21 1.25 MG Methylprednisolone Sodium Succinate/ Syringe (Solu-Medrol IV/ Syringe) 0.64 ml @ 1.5 mls/min Q8H IV 02/20/16 14:00 03/21/16 13:59
[2016-02-20] MEDS: CEFTRIAXONE SOD INJ 1 GM in DEXTROSE 5% ADD-VANTAGE 50ML 50 ML IV SCH (13:53)
[2016-02-20] MEDS: AZITHROMYCIN IV 500 MG in DEXTROSE 5% 250ML 250 ML IV SCH (13:54)
[2016-02-20] MEDS: GUAIFENESIN 200 MG TAB PO SCH ×2 (17:47→23:58)
[2016-02-20] MEDS: CETIRIZINE HCL 10 MG TAB PO SCH (20:52)
[2016-02-20] MEDS: ENOXAPARIN 40 MG/0.4 ML SYR SC SCH (20:52)
[2016-02-20] MEDS: ACETAMINOPHEN 325 MG TAB PO SCH (20:52)
[2016-02-20] MEDS: DIVALPROEX 500 MG EXTENDED RELEASE TAB PO SCH (20:52)
[2016-02-21] VITALS (8 sets, daily range): BP systolic 125–143; BP diastolic 77–86; PULSE 74–97; TEMP 36.3–36.6; O2SAT 92–97
[2016-02-21] MEDS: GUAIFENESIN 200 MG TAB PO SCH ×2 (05:58→12:00)
[2016-02-21] MEDS: LEVOTHYROXINE 137 MCG TAB PO SCH (05:58)
[2016-02-21] MEDS: METHYLPREDNISOLONE IV 40 MG in SYRINGE 0 ML IV SCH ×2 (05:58→13:40)
[2016-02-21 07:03] LABS: HEMATOCRIT 37.3 % (37-47); MEAN CELL VOLUME 97.6 fL (80-100); MEAN CORPUSCULAR HEMOGLOBIN 31.9 pg (25-34); MEAN CORPUSCULAR HGB CONC 32.7 g/dl (32-36); MEAN PLATELET VOLUME 10.5 fL (7.4-10.4); PLATELET COUNT 348 K/uL (130-400); RED BLOOD COUNT 3.82 M/uL (4.2-5.4); WHITE BLOOD COUNT 12.99 K/uL (4.8-10.8)
[2016-02-21] MEDS: LEVALBUTEROL 1.25MG/0.5ML NEB INH SCH ×2 (07:15→14:49)
[2016-02-21] MEDS: IPRATROPIUM BROMIDE NEB SOLN 0.02% 2.5 ML VIAL INH SCH ×2 (07:15→14:49)
[2016-02-21 07:29] LABS: CREATININE 0.88 mg/dl (0.60-1.20)
[2016-02-21] MEDS: ASPIRIN 325 MG ECTAB PO SCH (08:33)
[2016-02-21] MEDS: DOCUSATE SODIUM/SENNA 50/8.6MG TAB PO SCH (08:33)
[2016-02-21] MEDS: CHOLECALCIFEROL 1000 INTER.UNIT TAB PO SCH (08:33)
[2016-02-21] MEDS: FERROUS SULFATE 325 MG TAB PO SCH (08:34)
[2016-02-21] MEDS: CALCIUM CARBONATE 1250MG TAB PO SCH (08:34)
[2016-02-21] MEDS: FUROSEMIDE 20 MG TAB PO SCH (08:34)
[2016-02-21] MEDS: POTASSIUM CHLORIDE 20 MEQ TABCR PO SCH (08:34)
[2016-02-21] MEDS: DOCUSATE SODIUM 100 MG CAP PO SCH (08:35)
[2016-02-21] MEDS: DIVALPROEX 250 MG EXTENDED REL TAB PO SCH (08:35)
[2016-02-21] MEDS: CEFTRIAXONE SOD INJ 1 GM in DEXTROSE 5% ADD-VANTAGE 50ML 50 ML IV SCH (13:40)
[2016-02-21] MEDS: AZITHROMYCIN IV 500 MG in DEXTROSE 5% 250ML 250 ML IV SCH (13:40)
--- NOTE | 2016-02-21 14:56 | Progress Note ---
Medicine Progress Note Date & Time of Visit: Feb 21, 2016 at 14:25. Subjective Pt was seen seen and examined Lying in bed with no distress Pt said that she feels much better today she said that her breathing is improved and she is coughing less Denies any chest pain, palpitation, dizziness Pt said that she ambulated well yesterday with physical therapy she feels almost at her baseline she is anxious to go home Objective Last 8 Hrs Date Time Temp Pulse Resp B/P Pulse Ox O2 Delivery O2 Flow Rate FiO2 02/21/16 12:33 36.6 77 20 128/84 94 Room Air 02/21/16 12:00 Room Air 02/21/16 08:12 36.3 97 18 143/86 92 Room Air 02/21/16 08:00 97 Room Air 02/21/16 07:15 74 16 94 Room Air Physical Exam: General- No acute distress Head- atraumatic Eyes- PERRL, EOMI ENT- oropharynx clear Neck- supple, no JVD Lungs- +mild wheezing Heart- irregular rhythm Abdomen- normal bowel sounds, soft, nontender Extremities- no calf tenderness Neuro- alert, oriented, PERRL Skin- warm & dry Laboratory Results: Last 24 Hours Test 02/21/16 06:20 White Blood Count 12.99 K/uL Red Blood Count 3.82 M/uL Hemoglobin 12.2 g/dL Hematocrit 37.3 % Mean Corpuscular Volume 97.6 fL Mean Corpuscular Hemoglobin 31.9 pg Mean Corpuscular Hemoglobin Concent 32.7 g/dl RDW Standard Deviation 53.0 fL RDW Coefficient of Variation 15.0 % Platelet Count 348 K/uL Mean Platelet Volume 10.5 fL Creatinine 0.88 mg/dl Est Creatinine Clear Calc Drug Dose 45.5 ml/min Estimated GFR () 69.0 Estimated GFR (Non- 59.5 Assessment & Plan ACUTE HYPOXIA WITH RESPIRATORY DISTRESS Possible related to Pneumonia VS CHF -CXR on admission showed Progressive interstitial thickening and patchy airspace opacities within the periphery of the right lung and lung bases. Could represent pneumonia versus pulmonary edema. -Flu negative, afebrile, no leukocytosis -Continue Rocephin, azithromycin and lasix Repeat CXR this morning showed Persistent, but mildly improved, interstitial thickening. This could reflect pulmonary edema or an infectious process. -blood cultures has no growth -Continue breathing treatment -continue solumedrol at 40mg TID and guaifenesin - Will discharge on doxycline po and taper steroid RIGHT LUNG NODULES CXR showed a1.4 cm nodular density within the right upper lung. Compared to the 07/27 chest xray that showed a linear density within the Right upper zone Seems unchanged Need to follow up as an outpatient AFIB -monitor in tele -continue Aspirin -Stable ALZHEIMER'S DEMENTIA -pleasantly confused -caution for sundowning -continue Depakote -fall precautions - Stable IRON DEFICIENCY ANEMIA -hgb on admission 11.3 -continue iron supplement - today hgb 12.2 -Stable DIASTOLIC CHF -possible exacerbation, BNP 14K, but appears euvolemic -Received 40mg IV lasix in ED -will continue outpatient 20mg lasix BID - Stable HYPOTHYROIDISM -continue Synthroid DVT PROPHYLAXIS: Sq lovenox CODE STATUS: DNR DISPOSITION Discharge today to [facility] Current Inpatient Medications: Current Inpatient Medications Medications (Trade) Dose Ordered Sig/Nasir Route Start Time Stop Time Status Last Admin Dose Admin Enoxaparin Sodium (Lovenox Inj) 40 mg QPM SC 02/18/16 21:00 03/19/16 20:59 02/20/16 20:52 40 MG Acetaminophen (Tylenol Tab) 650 mg Q4H PRN PO 02/18/16 14:15 03/19/16 14:14 Ondansetron HCl (Zofran Inj) 4 mg Q6H PRN IV 02/18/16 14:15 03/19/16 14:14 Nitroglycerin 0.4 mg 0.4 mg UD PRN SL 02/18/16 14:15 03/19/16 14:14 Azithromycin 500 mg/Dextrose 255 ml @ 125 mls/hr Q24H IV 02/19/16 14:00 02/24/16 16:03 02/21/16 13:40 125 MLS/HR Ceftriaxone Sodium/Dextrose (Rocephin Inj/ Dextrose Add-[place] 50ML) 50 ml @ 100 mls/hr Q24H IV 02/19/16 13:00 02/24/16 13:29 02/21/16 13:40 100 MLS/HR Acetaminophen (Tylenol Tab) 650 mg HS PO 02/18/16 21:00 03/19/16 20:59 02/20/16 20:52 650 MG Aspirin (Ecotrin Tab) 325 mg DAILY PO 02/19/16 09:00 03/20/16 08:59 02/21/16 08:33 325 MG Cetirizine HCl (zyrTEC TAB) 10 mg HS PO 02/18/16 21:00 03/19/16 20:59 02/20/16 20:52 10 MG Cholecalciferol (Vitamin D Tab) 1,000 inter.unit DAILY PO 02/19/16 09:00 03/20/16 08:59 02/21/16 08:33 1,000 INTER.UNIT Divalproex Sodium (Depakote Extended Rel Tab) 250 mg DAILY PO 02/19/16 09:00 03/20/16 08:59 02/21/16 08:35 250 MG Divalproex Sodium (Depakote Extended Rel Tab) 500 mg HS PO 02/18/16 21:00 03/19/16 20:59 02/20/16 20:52 500 MG Docusate Sodium (coLACE CAP) 100 mg BID PO 02/18/16 21:00 03/19/16 20:59 02/21/16 08:35 100 MG Furosemide (Lasix tab) 20 mg BID17 PO 02/18/16 17:00 03/19/16 16:59 02/21/16 08:34 20 MG Levothyroxine Sodium (Synthroid Tab) 137 mcg DAILYBB PO 02/19/16 06:00 03/20/16 06:59 02/21/16 05:58 137 MCG Potassium Chloride (Klor-Con Tab) 20 meq QAM PO 02/19/16 09:00 03/20/16 08:59 02/21/16 08:34 20 MEQ Senna/Docusate Sodium (Senokot S Tab) 1 tab DAILY PO 02/19/16 09:00 03/20/16 08:59 02/21/16 08:33 1 TAB Tramadol HCl (Ultram Tab) 50 mg Q6 PRN PO 02/18/16 14:15 03/19/16 14:14 Menthol (Nice Rosa) 1 roas Q4 PRN PO 02/18/16 14:15 03/19/16 14:14 Calcium Carbonate (oS-Christopher 500 TAB) 1,250 mg DAILY PO 02/19/16 09:00 03/20/16 08:59 02/21/16 08:34 1,250 MG Ferrous Sulfate (Feosol Tab) 325 mg BID PO 02/18/16 21:00 03/19/16 20:59 02/21/16 08:34 325 MG Ipratropium [place] (Atrovent 0.02% 0.5MG/2.5ML Neb) 0.5 mg Q6R INH 02/18/16 15:00 03/19/16 14:59 02/21/16 07:15 0.5 MG Levalbuterol 1.25 mg 1.25 mg Q6R INH 02/18/16 15:00 03/19/16 14:59 02/21/16 07:15 1.25 MG Methylprednisolone Sodium Succinate/ Syringe (Solu-Medrol IV/ Syringe) 0.64 ml @ 1.5 mls/min Q8H IV 02/20/16 14:00 03/21/16 13:59 02/21/16 13:40 1.5 MLS/MIN Guaifenesin (Organidin Nr Tab) 200 mg Q6 PO 02/20/16 18:00 03/21/16 17:59 02/21/16 12:00 200 MG
[2016-02-21] MEDS ORDERED: PRED10TA PO (15:09)
[2016-02-21] MEDS ORDERED: DOXY-300 PO ×2 (15:09→15:52)
[2016-02-21] MEDS: ACETAMINOPHEN 325 MG TAB PO SCH (15:10)
--- NOTE | 2016-02-21 15:16 | Discharge Instructions ---
Discharge Instructions Admission Reason for Admission: Hypoxia, Pneumonia Discharge Discharge Diagnosis / Problem: ACUTE HYPOXIA WITH RESPIRATORY DISTRESS, RIGHT LUNG NODULE, AFIB Discharge Goals Goal(s): Decrease discomfort, Improve function, Improve disease control Activity Recommendations Activity Limitations: resume your previous activity (as tolerated) . Instructions / Follow-Up Instructions / Follow-Up Discharge to [facility] Complete the antibiotic (doxycycline) course Prednisone taper dose as directed Current Hospital Diet Patient's current hospital diet: AHA Diet (Heart Healthy) Discharge Diet Recommended Diet: AHA Diet (Heart Healthy) Pending Studies Studies pending at discharge: no Medical Emergencies . Who to Call and When: Medical Emergencies: If at any time you feel your situation is an emergency, please call 911 immediately. . Non-Emergent Contact Non-Emergency issues call your: Primary Care Provider Call Non-Emergent contact if: you have a fever, you have any medication questions . . "Provider Documentation" section prepared by Radha Guerra. VTE Core Measure Inpt VTE Proph given/why not?: Enoxaparin (Lovenox)SQ
--- NOTE | 2016-02-22 23:12 | Discharge Summary ---
Discharge Summary Admission Date: Feb 18, 2016 at 14:01 Discharge Date: Feb 21, 2016 Discharge Disposition: long-term facility Principal Diagnosis: Hypoxia Pneumonia Secondary Diagnoses/Problems: ACUTE HYPOXIA WITH RESPIRATORY DISTRESS, RIGHT LUNG NODULE, AFIB Consultations: PT/OT Medication Reconciliation New Medications: Doxycycline (Monohydrate) (Doxycycline) 100 Mg Cap 100 MG PO BID for 4 Days Prednisone Tab (Prednisone) 10 Mg Tab 10 MG PO UD for 12 Days, TAB take 4 tabs for 3 days, then 3 tabs for 3 days, then 2 tab for 3 days, then 1 tab for 3 days then stop Continued Medications: Acetaminophen Tab (Tylenol) 325 Mg Tab 650 MG PO Q4 PRN for Pain or Fever, TAB max 3gm apap/24hrs Acetaminophen Tab (Tylenol) 325 Mg Tab 650 MG PO HS MAX 3GM APAP/24HRS Aspirin (Aspirin Ec) 325 Mg Tab 325 MG PO DAILY Benzocaine-Menthol (Mouth-Thro (Cepacol Sore Throat) 1 Jean Paul Jean Paul 1 JEAN PAUL MT Q4 PRN for SORE THROAT Calcium Carbonate (Calcium Carbonate) 1,250 Mg Tab 1 TAB PO DAILY Cetirizine (Zyrtec) 10 Mg Tab 10 MG PO HS, TAB Cholecalciferol (Vitamin D3) 1,000 Unit Tab 1 TAB PO DAILY for 90 Days, #90 TAB 3 Refills Dextromethorphan-Guaifenesin (Tussin Dm) 1 Liq Liq 5 ML PO Q4 PRN for Cough Divalproex Sodium (Divalproex Sodium ER) 250 Mg Tabcr 250 MG PO DAILY Divalproex Sodium (Divalproex Sodium ER) 500 Mg Tabcr 500 MG PO HS Docusate Sodium (Colace) 100 Mg Cap 100 MG PO BID, CAP Ferrous Sulfate (Ferrous Sulfate) 325 Mg Tab 325 MG PO BID Furosemide (Lasix) 20 Mg Tab 20 MG PO BID, TAB Guaifenesin Ext Rel (Mucinex Ext Rel) 600 Mg Tab 600 MG PO BID, TAB TAKE X7 DAYS FOR CONGESTION. STARTED 02/16/16 Ipratropium-Albuterol (Duoneb) 3 Ml Nebu 1 TREATMENT INH QID, INHA TAKE X7 DAYS FOR COUGHING/WHEEZING. STARTED 02/16/16 Levothyroxine Sodium (Levothyroxine Sodium) 137 Mcg Tab 1 TAB PO DAILY for 90 Days, #90 TAB 3 Refills Loperamide Hcl (Loperamide Hcl) 2 Mg Tab 2 MG PO UD MAX 12MG/DAY Magnesium Hydroxide (Milk Of Magnesia) 30 Ml Susp 30 ML PO PRN for Constipation, ML Potassium Chloride (Klor-Con M20) 20 Meq Tabcr 20 MEQ PO QAM, #30 Sennosides-Docusate Sodium (Senna-S) 1 Tab Tab 1 TAB PO Q12 PRN for Constipation Sennosides-Docusate Sodium (Sennalax-S) 1 Tab Tab 1 TAB PO DAILY Tramadol (Ultram) 50 Mg Tab 50 MG PO Q6 PRN for Pain, TAB Discontinued Medications: Azithromycin (Zithromax) 250 Mg Tab 250 MG PO DAILY, #4 TAB Admission Information HPI (per Admitting provider): Patient seen and examined. 85 year old female with PMHx of Alzheimer's dementia , Afib, hypothyroidism, CKD and diastolic CHF presents to the ED with hypoxia at [facility] this morning. Patient reports that she has had a sore throat for over a week now. She reports she now has a cough that is wet but not usually productive. She states the [facility] has told her she has been having fevers. She reports she has been weak and tired because her cough keeps her up all night. She denies chest pain, SOB, nausea, vomiting, diarrhea, dysuria, calf pain and edema. I spoke with [facility] who stated this morning patient's pulse ox was in the 80s, they report she had a fever of 101.3 and that her lungs sounded coarse so they sent her to the ED for further evaluation. Patient is not on oxygen at baseline. Patient has been on a Zpak for four days. In the ED patient was hypoxic on RA. She will mildly tachycardic , but afebrile, BNP was 14K, CXR showed possible pneumonia versus pulmonary edema. She received Lasix, duonebs, azithromycin and Rocephin. She will be admitted for further workup and treatment. Physical Exam (per Admitting): General Appearance: + pertinent finding (WD/WN 85 year old female sitting at the edge of the bed eating lunch, in NAD ) Head: normocephalic, atraumatic Eyes: PERRL, EOMI, sclerae normal ENT: hearing grossly normal, pharynx normal Neck: supple, no JVD, trachea midline Respiratory/Chest: chest non-tender, no respiratory distress, no accessory muscle use, + crackles (right base, otherwise clear ) Cardiovascular: no edema, no gallop, no JVD, no murmur, normal peripheral pulses, + irregularly irregular (rate in the low 100s ) Abdomen/GI: normal bowel sounds, non tender, soft Back: normal inspection, no muscle spasm Extremities/Musculoskelatal: no calf tenderness, normal capillary refill, no pedal edema Neurologic/Psych: + pertinent finding (Alert, oriented to person, place, and situation, not oriented to time. No motor or sensory deficits noted on gross exam ) Skin: normal color, warm/dry, no rash Lymphatic: no adenopathy Hospital Course ACUTE HYPOXIA WITH RESPIRATORY DISTRESS Possible related to Pneumonia VS CHF -CXR on admission showed Progressive interstitial thickening and patchy airspace opacities within the periphery of the right lung and lung bases. Could represent pneumonia versus pulmonary edema. -Flu negative, afebrile, no leukocytosis -Continue Rocephin, azithromycin and lasix Repeat CXR this morning showed Persistent, but mildly improved, interstitial thickening. This could reflect pulmonary edema or an infectious process. -blood cultures has no growth -Continue breathing treatment -continue solumedrol at 40mg TID and guaifenesin - Will discharge on doxycline po and taper steroid RIGHT LUNG NODULES CXR showed a1.4 cm nodular density within the right upper lung. Compared to the 07/27 chest xray that showed a linear density within the Right upper zone Seems unchanged Need to follow up as an outpatient AFIB -monitor in tele -continue Aspirin -Stable ALZHEIMER'S DEMENTIA -pleasantly confused -caution for -continue Depakote -fall precautions - Stable IRON DEFICIENCY ANEMIA -hgb on admission 11.3 -continue iron supplement - today hgb 12.2 -Stable DIASTOLIC CHF -possible exacerbation, BNP 14K, but appears euvolemic -Received 40mg IV lasix in ED -will continue outpatient 20mg lasix BID - Stable HYPOTHYROIDISM -continue Synthroid DVT PROPHYLAXIS: Sq lovenox CODE STATUS: DNR DISPOSITION Discharge today to [facility] Total time spent on discharge = 35 minutes This includes examination of the patient, discharge planning, medication reconciliation, and communication with other providers. Discharge Instructions DI: Medical v4 Discharge Instructions Admission Reason for Admission: Hypoxia, Pneumonia Discharge Discharge Diagnosis / Problem: C Discharge Goals Goal(s): Decrease discomfort, Improve function, Improve disease control Activity Recommendations . Instructions / Follow-Up Instructions / Follow-Up Discharge to [facility] Complete the antibiotic (doxycycline) course Prednisone taper dose as directed Current Hospital Diet Patient's current hospital diet: AHA Diet (Heart Healthy) Discharge Diet Recommended Diet: AHA Diet (Heart Healthy) Pending Studies Studies pending at discharge: no Medical Emergencies . Who to Call and When: Medical Emergencies: If at any time you feel your situation is an emergency, please call 911 immediately. . Non-Emergent Contact Non-Emergency issues call your: Primary Care Provider Call Non-Emergent contact if: you have a fever, you have any medication questions . . "Provider Documentation" section prepared by Radha Guerra. VTE Core Measure Inpt VTE Proph given/why not?: Enoxaparin (Lovenox)SQ Additional Copies To Frantz Valdez D.O.
== END 2016-02-21 15:50 | disposition home or self-care (01) | DRG 291 ==
LOC: ENRESERVTM → ENRESERVDT → EDBD 10:21 → C.EDA 10:23 → C.2T 14:01
PROVIDERS: ADMIT Internal Medicine; ATTEND Internal Medicine
DX: I50.33 Acute on chronic diastolic (congestive) heart failure (principal); J18.9 Pneumonia, unspecified organism; R06.02 Shortness of breath; Z66 Do not resuscitate; G30.9 Alzheimer's disease, unspecified; I48.91 Unspecified atrial fibrillation; E03.9 Hypothyroidism, unspecified; Z87.891 Personal history of nicotine dependence; B34.9 Viral infection, unspecified; F02.80 Dementia in other diseases classified elsewhere, unspecified severity, without behavioral disturbance, psychotic disturbance, mood disturbance, and anxiety; I48.2 Chronic atrial fibrillation; I12.9 Hypertensive chronic kidney disease with stage 1 through stage 4 chronic kidney disease, or unspecified chronic kidney disease; N18.9 Chronic kidney disease, unspecified; M62.82 Rhabdomyolysis; D50.9 Iron deficiency anemia, unspecified; R91.1 Solitary pulmonary nodule; R09.02 Hypoxemia; E78.2 Mixed hyperlipidemia

== ENCOUNTER → 2016-07-18 | Outpatient (CLI) | payer OTHER, MEDICARE ==
[~2016-07-18] MED LIST changes: -DEXT100S; +DOXY-300 PO; +FERR1TAB62 PO; -FERR325T PO; +GUAI1TAB55 PO; +IPRASOL4 INH; +SENN1TAB86 PO; -SENN8.6T15 PO
== END | disposition home or self-care (01) ==
LOC: C.LABSPEC 08:23
PROVIDERS: ATTEND Internal Medicine
DX: E03.9 Hypothyroidism, unspecified (principal)

== ENCOUNTER → 2016-08-22 | Outpatient (CLI) | payer OTHER, MEDICARE ==
[~2016-08-22] MED LIST changes: -FERR1TAB62 PO; +FERR325T PO; -SENN1TAB86 PO; +SENN8.6T15 PO
[2016-08-22 08:48] LABS: HEMATOCRIT 39.9 % (37-47); MEAN CELL VOLUME 97.8 fL (80-100); MEAN CORPUSCULAR HEMOGLOBIN 30.9 pg (25-34); MEAN CORPUSCULAR HGB CONC 31.6 g/dl (32-36); MEAN PLATELET VOLUME 11.3 fL (7.4-10.4); PLATELET COUNT 184 K/uL (130-400); RED BLOOD COUNT 4.08 M/uL (4.2-5.4); WHITE BLOOD COUNT 5.51 K/uL (4.8-10.8)
[2016-08-22 08:55] LABS: ALT/SGPT 9 U/L (12-78); BLOOD UREA NITROGEN 22 mg/dl (7-18); BUN/CREATININE RATIO 30.7 (10-20); CALCIUM 8.8 mg/dl (8.5-10.1); CARBON DIOXIDE 32 mmol/L (21-32); CHLORIDE 105 mmol/L (98-107); CREATININE 0.73 mg/dl (0.60-1.20); GLUCOSE 86 mg/dl (70-99); SODIUM 142 mmol/L (136-145)
[2016-08-22 09:07] LABS: ALKALINE PHOSPHATASE 42 U/L (45-117); AST/SGOT 11 U/L (15-37); THYROID STIMULATING HORMONE 0.756 uIu/ml (0.300-4.500)
[2016-08-22 10:00] LABS: ESTIMATED AVERAGE GLUCOSE 111 mg/dl; HA1C FLAG Normal (Normal)
--- NOTE | 2016-08-30 12:34 | CODING QUERY MEDICAL NECESSITY ---
SUPPORTING DIAGNOSIS NEEDED A supporting diagnosis is required for the test/procedure performed on this patient in order for us to be reimbursed by the patient's insurance. Please provide a supporting diagnosis for the following test/procedure listed below next to the test name along with your signature. *If there is no additional diagnosis for this patient that would support the following test/procedure please document that below next to the test/procedure. Test(s)/Procedure(s) that require a supporting diagnosis: * HEMOGLOBIN A1C DIAGNOSIS: * VITAMIN B12 DIAGNOSIS: Provider Signature: Date: Thank you Mariama Hines Aras Information Management Once completed, please kindly fax back to [phone] For questions please call [phone]
== END | disposition home or self-care (01) ==
LOC: C.LABWYN 08:28
PROVIDERS: ATTEND Nurse Practitioner Adult Health
DX: E55.9 Vitamin D deficiency, unspecified (principal); D64.9 Anemia, unspecified; I10 Essential (primary) hypertension; G62.9 Polyneuropathy, unspecified; E11.9 Type 2 diabetes mellitus without complications

== ENCOUNTER → 2017-06-05 | Outpatient (CLI) | payer OTHER, MEDICARE ==
[~2017-06-05] MED LIST changes: +ACET-1693 PO; -ACET325T96 PO; +CALC12504 PO; +CLR10 PO; +DIVA250T4 PO; +DIVA500T59 PO; +FERR1TAB62 PO; -FERR325T PO; +GABA-113 PO; +MOME6000; +NAPR1TAB9 PO; -NF84 PO; +PRED20TA PO; +SENN1TAB86 PO; -SENN8.6T15 PO
[2017-06-05 09:39] LABS: HEMATOCRIT 43.4 % (37-47); HEMOGLOBIN 13.9 g/dL (12.0-16.0); MEAN CELL VOLUME 98.2 fL (80-100); MEAN CORPUSCULAR HEMOGLOBIN 31.4 pg (25-34); MEAN PLATELET VOLUME 11.1 fL (7.4-10.4); PLATELET COUNT 156 K/uL (130-400); RED CELL DISTRIBUTION WIDTH CV 14.4 % (11.5-14.5); RED CELL DISTRIBUTION WIDTH SD 51.7 fL (36.4-46.3); WHITE BLOOD COUNT 6.44 K/uL (4.8-10.8)
[2017-06-05 09:51] LABS: BLOOD UREA NITROGEN 35 mg/dl (7-18); CALCIUM 8.2 mg/dl (8.5-10.1); CARBON DIOXIDE 33 mmol/L (21-32); CREATININE 0.92 mg/dl (0.60-1.20); GLUCOSE 86 mg/dl (70-99); POTASSIUM 4.3 mmol/L (3.5-5.1); SODIUM 140 mmol/L (136-145)
== END | disposition home or self-care (01) ==
LOC: C.LABWYN 08:55
PROVIDERS: ATTEND Internal Medicine
DX: E03.9 Hypothyroidism, unspecified (principal)

== ENCOUNTER → 2017-06-27 | Day surgery (SDC) | payer OTHER, MEDICARE ==
[2017-06-07 08:27] VITALS: Ht 165.1 cm; Wt 68.6 kg
[~2017-06-27] VITALS: Ht 165.1 cm; Wt 68.6 kg
[~2017-06-27] MED LIST changes: -CETI10TA84 PO; -CLC100X PO; -DOXY-300 PO; -DPKSR250 PO; -DPKSR500 PO; +IOPAMIDOL INJ 61% 15 ML VIAL ONE; -IPRASOL4 INH; +LIDOCAINE HCL 1% MPF 5 ML VIAL ONE; -LOPE1TAB25 PO; +SODIUM CHLORIDE 0.9% INJ 10 ML VIAL ONE
--- NOTE | 2017-06-27 15:01 | History & Physical Bridge - SC ---
H&P Re-Evaluation Bridge Note: I have examined the patient, reviewed the History & Physical and in the interval since the performance of the History & Physical I have noted the following changes of clinical significance: No changes noted
--- NOTE | 2017-06-27 15:21 | [facility] Post Operative Brief Note ---
Immediate Operative Summary Operative Date June 27, 2017. 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 Emma HUNT Metallurgical Engineer Surgeon(s) NONE Estimated Blood Loss 0 Findings Consistent with Post-Op Diagnosis Specimens NA Drains None Anesthesia Type Local Complication(s) none Disposition Disposition:
--- NOTE | 2017-06-27 15:22 | Discharge Instructions ---
Discharge Instructions Date of Service June 27, 2017. Visit Reason for Visit: Lumbar Radiculopathy Discharge Discharge Diagnosis / Problem: right leg pain Discharge Goals Goal(s): Decrease discomfort, Improve function Medications Stopped Medications Name(s): Stopped Aspirin and Aleve 3 days prior Activity Recommendations Activity Limitations: resume your previous activity Anesthesia . Post Anesthesia Instructions: If you have had General Anesthesia or IV Sedation: * Do not drive today. * Resume driving when surgeon permits. * Do not make important decisions or sign legal documents today. * Call surgeon for: 1. Temperature elevations greater than 101 degrees F. 2. Uncontrollable pain. 3. Excessive bleeding. 4. Persistent nausea and vomiting. 5. Medication intolerance (nausea, vomiting or rash). * For nausea and vomiting use only clear liquids such as: tea, soda, bouillon until nausea subsides, then gradually increase diet as tolerated. * If you have any concerns or questions, call your surgeon's office. If physician is unavailable and it is an emergency, call 911 or go to the nearest emergency room. . Diet Recommendations Recommended Home Diet: resume previous diet Procedures Procedures Performed: LUMBAR EPIDURAL STEROID INJECTION Pending Studies Studies pending at discharge: no Medical Emergencies . Who to Call and When: Medical Emergencies: If at any time you feel your situation is an emergency, please call 911 immediately. . Non-Emergent Contact Non-Emergency issues call your: Specialist . . "Provider Documentation" section prepared by Mayur Ruiz. .
[2017-06-27 15:46] VITALS: BP 151/88; PULSE 88; O2SAT 94
--- NOTE | 2017-06-27 16:11 | OPERATIVE REPORT ---
DATE OF OPERATION: 06/27/2017 PREOPERATIVE DIAGNOSIS: Multifactorial stenosis with right L4 radiculopathy. POSTOPERATIVE DIAGNOSIS: Multifactorial stenosis with right L4 radiculopathy. PROCEDURE: Right paramedian L5-S1 intralaminar epidural steroid injection under fluoroscopic guidance. INDICATIONS: The patient is an 86-year-old white female who presents today for an epidural injection to relieve sciatica that she has had very uncomfortable radiating down the right leg. PHYSICAL EXAMINATION: A pleasant female, moving about slowly. She has tenderness to palpation of the sciatic notch. She has intact sensation distally. Positive seated straight leg raise with pain inhibition with straight leg testing of her right lower extremity. CONSENT: Verbal and written consent was obtained from the patient. Risks and benefits were reviewed. Risks include but are not limited to epidural abscess, epidural hematoma, allergic reaction, dural puncture. The patient wishes to proceed. PROCEDURE IN DETAIL: The patient was taken back to the special procedures room of [facility]. She was maintained in a prone position. The backside was cleansed with Betadine x3 and a dry sterile dressing was applied. Fluoroscope was used to identify the L5-S1 intralaminar space, but that was nearly completely closed. She then underwent anesthetization on the right side at L5-S1 with 4 mL of lidocaine 1% with a 25 gauge 1.5-inch needle. A 22-gauge 3.5 inch Tuohy needle was then directed down towards the intralaminar space. It was advanced under lateral fluoroscopic guidance. Loss of resistance was noted at a depth of 6 cm. Isovue-300 contrast 1 mL was injected in which demonstrated an epidural uptake pattern which was confirmed with both AP and lateral views. She then underwent injection after negative aspiration of 40 mg of Depo-Medrol and 4 mL of preservative free sodium chloride. The injection was well-tolerated. DISPOSITION: 1. The patient is taken out into the discharge recovery area where she will be discharged home once discharge criteria have been met. 2. Follow up in the [facility] office in 2-4 weeks. I attest to the content of the Intraoperative Record and any orders documented therein. Any exception s are noted below.
== END | disposition home or self-care (01) ==
LOC: X.SURG 14:05
PROVIDERS: ATTEND Physical Medicine & Rehabilitation
DX: M54.16 Radiculopathy, lumbar region (principal); F32.9 Major depressive disorder, single episode, unspecified; I10 Essential (primary) hypertension; Z79.82 Long term (current) use of aspirin; Z79.899 Other long term (current) drug therapy; Z87.891 Personal history of nicotine dependence

== ENCOUNTER → 2017-09-04 | Outpatient (CLI) | payer OTHER, MEDICARE ==
[~2017-09-04] MED LIST changes: -DIVA250T4 PO; +DIVA250T93 PO; -IOPAMIDOL INJ 61% 15 ML VIAL ONE; -LIDOCAINE HCL 1% MPF 5 ML VIAL ONE; -SODIUM CHLORIDE 0.9% INJ 10 ML VIAL ONE
[2017-09-04 08:58] LABS: BLOOD UREA NITROGEN 29 mg/dl (7-18); CALCIUM 8.2 mg/dl (8.5-10.1); CARBON DIOXIDE 36 mmol/L (21-32); CREATININE 1.03 mg/dl (0.60-1.20); GLUCOSE 78 mg/dl (70-99); POTASSIUM 4.6 mmol/L (3.5-5.1); SODIUM 142 mmol/L (136-145)
== END | disposition home or self-care (01) ==
LOC: C.LABWYN 08:27
PROVIDERS: ATTEND Internal Medicine
DX: I10 Essential (primary) hypertension (principal)

== ENCOUNTER 2018-11-13 07:29 | Inpatient (IN) ==
[2018-11-13 08:03] LABS: iSTAT Creatinine 1.5 mg/dl (0.6-1.3); iSTAT Hemoglobin 14.6 g/dl (12.0-16.0); iSTAT Ionized Calcium 1.05 mmol/l (1.12-1.32); iSTAT Potassium 3.5 mEq/L (3.3-5.0)
--- NOTE | 2018-11-13 08:06 | Emergency Department Note ---
Entered by Aviva Colunga acting as a scribe for Paco Swain DO History of Present Illness General Chief complaint: Respiratory Distress Time Seen by Provider: 11/13/18 07:37 Source: EMS Limitations: altered mental status History of Present Illness Onset (ago): minute(s) (prior to arrival) Location: head Pain Consistency: + other (episode) Quality: + other (found unresponsive ) Associated symptoms: + nausea/vomiting and + other (-neck pain ); no chest pain The patient is an 85 year old female who presents to the Emergency Room after an episode of being found unresponsive prior to arrival, per EMS. EMS reports the patient reportedly went to the bathroom around 0100 this morning. EMS then reports the patient was found on the floor of the bathroom around 0615 this morning. EMS notes the patient vomited and likely aspirated. EMS states the patient at baseline has A Fib, mood disorder, psychosis, and hypertension. The patient denies chest pain and neck pain. The patient's HPI and ROS are limited due to the patient's altered mental status. Home Medications Home Medications Medication Instructions Recorded Confirmed Type Mucinex DM 1 tab PO Q12H PRN 11/08/17 11/13/18 History acetaminophen [Tylenol] 650 mg PO TID PRN 11/08/17 11/13/18 History cholecalciferol (vitamin D3) 1,000 unit PO QAM 11/08/17 11/13/18 History [Vitamin D3] divalproex 500 mg PO HS 11/08/17 11/13/18 History ferrous sulfate 325 mg PO BID 11/08/17 11/13/18 History furosemide 40 mg PO QAM 11/08/17 11/13/18 History guaifenesin [Tussin] 5 ml PO Q4H PRN 11/08/17 11/13/18 History levothyroxine 150 mcg PO QAM 11/08/17 11/13/18 History loratadine 10 mg PO HS PRN 11/08/17 11/13/18 History potassium chloride 20 meq PO QAM 11/08/17 11/13/18 History sennosides [Senna Lax] 8.6 mg PO BID PRN 11/08/17 11/13/18 History calcium carbonate [Oysco-500] 500 mg PO QAM 09/03/18 11/13/18 History fluticasone propionate 2 spray INTRANASAL DAILY PRN 09/03/18 11/13/18 History diphenhydramine-acetaminophen 1 tab PO HS 10/20/18 11/13/18 History [Non-Aspirin PM] divalproex 250 mg PO QAM 10/20/18 11/13/18 History mirtazapine 15 mg PO HS 10/20/18 11/13/18 History olanzapine 5 mg PO QAM 10/20/18 11/13/18 History olanzapine 10 mg PO HS 10/20/18 11/13/18 History sertraline 50 mg PO QAM 10/20/18 11/13/18 History aspirin 325 mg PO QAM 11/13/18 11/13/18 History furosemide 20 mg PO QAM 11/13/18 11/13/18 History furosemide 40 mg PO DAILY PRN 11/13/18 11/13/18 History metolazone 5 mg PO UD 11/13/18 11/13/18 History Allergies Allergy/AdvReac Type Severity Reaction Status Date / Time No Known Allergies Allergy Verified 11/13/18 09:47 Past Med/Surg History Medical History CKD (chronic kidney disease), stage III (Chronic) Hypertension (Chronic) Hyperlipidemia (Chronic) Diverticular disease (Chronic) Kidney stones (Chronic) Osteoarthritis (Chronic) Alzheimer disease (Chronic) Anemia (Chronic) Generalized weakness (Chronic) Abnormality of gait (Chronic) Episodic mood disorder (Chronic) Afib (Chronic) Diastolic CHF (Chronic) SINGH (iron deficiency anemia) (Chronic) Hypothyroidism (Chronic) Dementia (Chronic) Surgical History H/O: hysterectomy (Chronic) H/O colectomy (Chronic) Family History Family/Other Family history of irritable bowel syndrome Social History Preferred Language: Spanish Communication Ability: Effective Network Engineer Required: No Beliefs That Will Affect Care: None Current Living Situation: Personal Care Facility Other Information That Helps Us Care for You: No Feels Safe at Home: Yes Safety Concerns: Feels Safe At This Time Smoking Status: Unknown if ever smoked Review of Systems See HPI for pertinent positives & negatives. Unobtainable due to cognitive status Physical Exam Vital Signs Vital Signs - 24 hr 11/13/18 07:32 11/13/18 07:34 11/13/18 07:36 Temperature Source Oral Sepsis Recent Fever Within 48 Hours No Sepsis Action Taken by Nursing No Action Required Pulse Rate 126 H 128 H 125 H Pulse Rate from SpO2 Sensor 133 H Pulse Rhythm Regular Pulse Strength Normal Respiratory Rate 36 H 28 H 34 H Respiratory Depth Shallow Blood Pressure 94/71 L 94/71 L Blood Pressure Mean 78 78 Pulse Oximetry 94 90 95 Oxygen Delivery Method CPAP CPAP Oxygen Flow Rate Fraction of Inspired Oxygen 100 100 11/13/18 07:42 11/13/18 07:45 11/13/18 07:54 Temperature Source Sepsis Recent Fever Within 48 Hours Sepsis Action Taken by Nursing Pulse Rate 128 H 118 H Pulse Rate from SpO2 Sensor 133 H 120 H Pulse Rhythm Pulse Strength Respiratory Rate 33 H 38 H Respiratory Depth Blood Pressure 103/73 Blood Pressure Mean 83 Pulse Oximetry 95 97 Oxygen Delivery Method CPAP CPAP CPAP Oxygen Flow Rate Fraction of Inspired Oxygen 100 100 100 11/13/18 08:00 11/13/18 08:02 11/13/18 08:26 Temperature Source Sepsis Recent Fever Within 48 Hours Sepsis Action Taken by Nursing Pulse Rate 110 H 115 H Pulse Rate from SpO2 Sensor 117 H 111 H Pulse Rhythm Pulse Strength Respiratory Rate 30 H 33 H Respiratory Depth Blood Pressure 122/74 140/81 Blood Pressure Mean 90 100 Pulse Oximetry 95 90 Oxygen Delivery Method CPAP CPAP Oxygen Flow Rate Fraction of Inspired Oxygen 100 11/13/18 08:30 11/13/18 08:31 11/13/18 08:45 Temperature Source Sepsis Recent Fever Within 48 Hours Sepsis Action Taken by Nursing Pulse Rate 129 H 121 H 102 H Pulse Rate from SpO2 Sensor 116 H 112 H 99 H Pulse Rhythm Pulse Strength Respiratory Rate 36 H 34 H 27 H Respiratory Depth Blood Pressure 122/66 111/74 Blood Pressure Mean 84 86 Pulse Oximetry 96 Oxygen Delivery Method Oxymask Oxygen Flow Rate 15 Fraction of Inspired Oxygen 11/13/18 09:00 11/13/18 09:15 11/13/18 09:30 Temperature Source Sepsis Recent Fever Within 48 Hours Sepsis Action Taken by Nursing Pulse Rate 101 H 97 H 119 H Pulse Rate from SpO2 Sensor 103 H 102 H 111 H Pulse Rhythm Pulse Strength Respiratory Rate 26 H 22 25 H Respiratory Depth Blood Pressure 124/75 122/66 126/73 Blood Pressure Mean 91 84 90 Pulse Oximetry 96 92 90 Oxygen Delivery Method Oxymask Oxymask Oxymask Oxygen Flow Rate 15 15 15 Fraction of Inspired Oxygen 11/13/18 09:45 Temperature Source Sepsis Recent Fever Within 48 Hours Sepsis Action Taken by Nursing Pulse Rate 102 H Pulse Rate from SpO2 Sensor 102 H Pulse Rhythm Pulse Strength Respiratory Rate 29 H Respiratory Depth Blood Pressure 131/76 Blood Pressure Mean 94 Pulse Oximetry 90 Oxygen Delivery Method Oxymask Oxygen Flow Rate 15 Fraction of Inspired Oxygen GENERAL: The patient is somnolent. Patient responds to loud verbal commands and follows commands slowly and sometimes and appropriately. EYES: The conjunctivae are clear. The pupils are round and reactive. EARS, NOSE, MOUTH AND THROAT: The nose is without any evidence of any deformity. Mucous membranes are moist tongue is midline NECK: The neck is nontender and supple. RESPIRATORY: Diminished respiratory effort was noted. There were diminished breath sounds noted throughout. Absent lung sounds were noted at the right base. CARDIOVASCULAR: Tachycardic rate was noted to auscultation. No definite murmur was noted. GASTROINTESTINAL: The abdomen is moderately distended. There is no guarding or rigidity noted. MUSCULOSKELETAL/EXTREMITIES: There is no evidence of gross deformity full range of motion is noted in the hips and shoulders SKIN: Ecchymosis was noted over the upper extremity which appears to be old. There is also a bruise on the left breast. Pedal edema was noted bilaterally. NEUROLOGIC: Strength was diminished but symmetric. Patient follows commands intermittently. Currently patient is on BiPAP and does not answer questions a properly. Unable to assess orientation at this time. Course 0731: Past medical records reviewed. The patient was evaluated in room A1. A complete history and physical exam was performed. 0900: I reevaluated and updated the patient. There was no change 0907: I reviewed the patient's case with Sapna Narvaez. Dr. Watson Daugherty will evaluate the patient for further management. Consultations Consultation #1: I reviewed the patient's case with Sapna Narvaez. Dr. Watson Daugherty will evaluate the patient for further management. Time: 09:07 Administered Medications Albuterol (Duoneb) 3 ml NEB QIDR [facility] Stop: 12/13/18 10:59 Last Admin: 11/13/18 13:59 Dose: 3 ml Documented by: [id number] Admin: 11/13/18 11:52 Dose: 3 ml Documented by: [id number] Heparin Sodium (Porcine) (Heparin Sodium (Porcine)) 5,000 units SQ Q8H [facility] Stop: 12/13/18 11:59 Last Admin: 11/13/18 14:04 Dose: 5,000 units Documented by: [id number] Cosigned by: [id number] Sodium Chloride (Nss 1000ml) 1,000 mls @ 100 mls/hr IV .Q10H [facility] Stop: 11/13/18 21:15 Last Infusion: 11/13/18 12:21 Dose: 0 mls/hr Documented by: [id number] Admin: 11/13/18 11:30 Dose: 100 mls/hr Documented by: [id number] Valproic Acid 200 mg/ Dextrose 52 mls @ 52 mls/hr IV Q6H [facility] Stop: 12/13/18 11:59 Last Infusion: 11/13/18 14:06 Dose: 0 mls/hr Documented by: [id number] Admin: 11/13/18 12:18 Dose: 52 mls/hr Documented by: [id number] Discontinued Medications Sodium Chloride (Nss 1000ml) 1,000 mls @ 999 mls/hr IV .Q1H1M ONE Stop: 11/13/18 09:07 Last Infusion: 11/13/18 09:47 Dose: 0 mls/hr Documented by: [id number] Admin: 11/13/18 08:37 Dose: 999 mls/hr Documented by: [id number] Piperacillin Sod/Tazobactam Sod (Zosyn) 4.5 gm in 120 mls @ 240 mls/hr IV NOW ONE Stop: 11/13/18 08:47 Last Infusion: 11/13/18 09:47 Dose: 0 mls/hr Documented by: [id number] Admin: 11/13/18 08:37 Dose: 240 mls/hr Documented by: [id number] Vancomycin HCl 1,500 mg/ (Sodium Chloride) 530 mls @ 200 mls/hr IV NOW ONE Stop: 11/13/18 14:23 Last Admin: 11/13/18 14:02 Dose: 200 mls/hr Documented by: [id number] Ioversol (Optiray 320 125ml) 119 ml IV ONCE PRN PRN Reason: Interaction Checking Stop: 11/17/18 08:13 Last Admin: 11/13/18 08:14 Dose: 119 ml Documented by: [id number] Miscellaneous (Patient's Height And/Or Weight Needed) 1 ea N/A Q2H [facility] Stop: 11/13/18 18:00 Last Admin: 11/13/18 11:34 Dose: Not Given Documented by: [id number] Medical Decision Making Differential Diagnosis Differential diagnosis: Etiologies such as infections, reactive airway disease, pneumonia, pneumothorax, COPD, CHF, cardiac ischemia, pulmonary embolism, musculoskeletal, gastrointestinal, as well as others were entertained. Medical Records Attestation: I reviewed the patient's medical records. Home Medications Current Medication List: was personally reviewed by me Laboratory Data Attestation: I reviewed the patient's lab results. Result diagrams: 11/13/18 07:43 11/13/18 07:43 Lab Results 11/13/18 11/13/18 11/13/18 Range/Units 07:43 07:43 07:43 WBC 14.09 H (4.8-10.8) K/uL RBC 4.19 L (4.2-5.4) M/uL Hgb 13.8 (12.0-16.0) g/dL POC Hgb (12.0-16.0) g/dl Hct 42.6 (37-47) % POC Hct (37-47) % MCV 101.7 H (80-100) fL MCH 32.9 (25-34) pg MCHC 32.4 (32-36) g/dL RDW Std Deviation 54.6 H (36.4-46.3) fL RDW Coeff of Dung 14.8 H (11.5-14.5) % Plt Count 249 (130-400) K/uL MPV 10.7 H (7.4-10.4) fL Immature Gran % (Auto) 0.4 % Neut % (Auto) 83.2 % Lymph % (Auto) 3.9 % [place] % (Auto) 12.1 % Eos % (Auto) 0.2 % Baso % (Auto) 0.2 % Immature Gran # (Auto) 0.05 H (0.00-0.02) K/uL Neut # (Auto) 11.72 H (1.4-6.5) K/uL Lymph # (Auto) 0.55 L (1.2-3.4) K/uL [place] # (Auto) 1.71 H (0.11-0.59) K/uL Eos # (Auto) 0.03 (0-0.5) K/uL Baso # (Auto) 0.03 (0-0.2) K/uL PT 11.0 (9.0-12.0) Seconds INR 1.1 (0.9-1.1) APTT 22.7 (21.0-31.0) Seconds PTT Ratio 0.8 VBG pH (7.36-7.41) VBG pCO2 (38-50) mmHg VBG pO2 mmHg VBG HCO3 mmol/L VBG O2 Saturation % VBG Base Excess mEq/L Barometric Pressure mm/Hg POC Sodium (135-144) mEq/L Sodium 139 (136-145) mmol/L POC Potassium (3.3-5.0) mEq/L Potassium 3.8 (3.5-5.1) mmol/L POC Chloride (101-112) mEq/L Chloride 96 L (98-107) mmol/L Carbon Dioxide 34 H (21-32) mmol/L POC Total CO2 (24-31) mEq/l Anion Gap 9.0 (3-11) POC Anion Gap (16-25) mmol/L POC BUN (7-18) mg/dl BUN 39 H (7-18) mg/dl Creatinine 1.37 H (0.6-1.2) mg/dl POC Creatinine (0.6-1.3) mg/dl Est Cr Clr Drug Dosing Not Reportable Est GFR ( Amer) 39.5 Est GFR (Non-Af Amer) 34.1 BUN/Creatinine Ratio 28.5 H (10-20) Glucose 157 H (70-99) mg/dl POC Glucose (other) (70-99) mg/dl POC Lactic Acid Agusto (0.90-1.70) mmol/L Calcium 9.1 (8.5-10.1) mg/dl POC Ioniz Calcium Saroj (1.12-1.32) mmol/l Magnesium 2.2 (1.8-2.4) mg/dl Total Bilirubin 0.8 (0.2-1) mg/dl AST 36 (15-37) U/L ALT 14 (12-78) U/L Alkaline Phosphatase 58 (45-117) U/L Troponin I 0.052 H* (0-0.045) ng/ml Total Protein 6.8 (6.4-8.2) gm/dl Albumin 3.4 (3.4-5.0) gm/dl Globulin 3.4 (2.5-4.0) gm/dl Albumin/Globulin Ratio 1.0 (0.9-2) Procalcitonin (0-0.5) ng/ml Specimen Hemolysis Valproic Acid (50-100) mcg/ml 11/13/18 11/13/18 11/13/18 Range/Units 07:43 07:43 07:47 WBC (4.8-10.8) K/uL RBC (4.2-5.4) M/uL Hgb (12.0-16.0) g/dL POC Hgb (12.0-16.0) g/dl Hct (37-47) % POC Hct (37-47) % MCV (80-100) fL MCH (25-34) pg MCHC (32-36) g/dL RDW Std Deviation (36.4-46.3) fL RDW Coeff of Dung (11.5-14.5) % Plt Count (130-400) K/uL MPV (7.4-10.4) fL Immature Gran % (Auto) % Neut % (Auto) % Lymph % (Auto) % [place] % (Auto) % Eos % (Auto) % Baso % (Auto) % Immature Gran # (Auto) (0.00-0.02) K/uL Neut # (Auto) (1.4-6.5) K/uL Lymph # (Auto) (1.2-3.4) K/uL [place] # (Auto) (0.11-0.59) K/uL Eos # (Auto) (0-0.5) K/uL Baso # (Auto) (0-0.2) K/uL PT (9.0-12.0) Seconds INR (0.9-1.1) APTT (21.0-31.0) Seconds PTT Ratio VBG pH (7.36-7.41) VBG pCO2 (38-50) mmHg VBG pO2 mmHg VBG HCO3 mmol/L VBG O2 Saturation % VBG Base Excess mEq/L Barometric Pressure mm/Hg POC Sodium (135-144) mEq/L Sodium (136-145) mmol/L POC Potassium (3.3-5.0) mEq/L Potassium (3.5-5.1) mmol/L POC Chloride (101-112) mEq/L Chloride (98-107) mmol/L Carbon Dioxide (21-32) mmol/L POC Total CO2 (24-31) mEq/l Anion Gap (3-11) POC Anion Gap (16-25) mmol/L POC BUN (7-18) mg/dl BUN (7-18) mg/dl Creatinine (0.6-1.2) mg/dl POC Creatinine (0.6-1.3) mg/dl Est Cr Clr Drug Dosing Est GFR ( Amer) Est GFR (Non-Af Amer) BUN/Creatinine Ratio (10-20) Glucose (70-99) mg/dl POC Glucose (other) (70-99) mg/dl POC Lactic Acid Agusto 3.09 H (0.90-1.70) mmol/L Calcium (8.5-10.1) mg/dl POC Ioniz Calcium Saroj (1.12-1.32) mmol/l Magnesium (1.8-2.4) mg/dl Total Bilirubin (0.2-1) mg/dl AST (15-37) U/L ALT (12-78) U/L Alkaline Phosphatase (45-117) U/L Troponin I (0-0.045) ng/ml Total Protein (6.4-8.2) gm/dl Albumin (3.4-5.0) gm/dl Globulin (2.5-4.0) gm/dl Albumin/Globulin Ratio (0.9-2) Procalcitonin 21.42 H (0-0.5) ng/ml Specimen Hemolysis Valproic Acid 78 (50-100) mcg/ml 11/13/18 11/13/18 Range/Units 07:50 07:57 WBC (4.8-10.8) K/uL RBC (4.2-5.4) M/uL Hgb (12.0-16.0) g/dL POC Hgb 14.6 (12.0-16.0) g/dl Hct (37-47) % POC Hct 43 (37-47) % MCV (80-100) fL MCH (25-34) pg MCHC (32-36) g/dL RDW Std Deviation (36.4-46.3) fL RDW Coeff of Dung (11.5-14.5) % Plt Count (130-400) K/uL MPV (7.4-10.4) fL Immature Gran % (Auto) % Neut % (Auto) % Lymph % (Auto) % [place] % (Auto) % Eos % (Auto) % Baso % (Auto) % Immature Gran # (Auto) (0.00-0.02) K/uL Neut # (Auto) (1.4-6.5) K/uL Lymph # (Auto) (1.2-3.4) K/uL [place] # (Auto) (0.11-0.59) K/uL Eos # (Auto) (0-0.5) K/uL Baso # (Auto) (0-0.2) K/uL PT (9.0-12.0) Seconds INR (0.9-1.1) APTT (21.0-31.0) Seconds PTT Ratio VBG pH 7.35 L (7.36-7.41) VBG pCO2 64 H (38-50) mmHg VBG pO2 29 mmHg VBG HCO3 34 mmol/L VBG O2 Saturation < 60.0 % VBG Base Excess 6.1 mEq/L Barometric Pressure 730.1 mm/Hg POC Sodium 139 (135-144) mEq/L Sodium (136-145) mmol/L POC Potassium 3.5 (3.3-5.0) mEq/L Potassium (3.5-5.1) mmol/L POC Chloride 92 L (101-112) mEq/L Chloride (98-107) mmol/L Carbon Dioxide (21-32) mmol/L POC Total CO2 35 H (24-31) mEq/l Anion Gap (3-11) POC Anion Gap 16.0 (16-25) mmol/L POC BUN 40 H (7-18) mg/dl BUN (7-18) mg/dl Creatinine (0.6-1.2) mg/dl POC Creatinine 1.5 H (0.6-1.3) mg/dl Est Cr Clr Drug Dosing Est GFR ( Amer) Est GFR (Non-Af Amer) BUN/Creatinine Ratio (10-20) Glucose (70-99) mg/dl POC Glucose (other) 162 H (70-99) mg/dl POC Lactic Acid Agusto (0.90-1.70) mmol/L Calcium (8.5-10.1) mg/dl POC Ioniz Calcium Saroj 1.05 L (1.12-1.32) mmol/l Magnesium (1.8-2.4) mg/dl Total Bilirubin (0.2-1) mg/dl AST (15-37) U/L ALT (12-78) U/L Alkaline Phosphatase (45-117) U/L Troponin I (0-0.045) ng/ml Total Protein (6.4-8.2) gm/dl Albumin (3.4-5.0) gm/dl Globulin (2.5-4.0) gm/dl Albumin/Globulin Ratio (0.9-2) Procalcitonin (0-0.5) ng/ml Specimen Hemolysis Valproic Acid (50-100) mcg/ml Imaging Data Radiologist's Impression: Radiology results as stated below per my review and the radiologist's interpretation: CT abd pelvis IV con only CLINICAL HISTORY: 88 years-old Female presenting with fall, respiratory distress. TECHNIQUE: Multidetector CT of the abdomen and pelvis was performed after the administration of intravenous contrast. IV contrast: 119 mL of Optiray 320. One or more dose lowering techniques were used consistent with the principles of [place] MEGHAN (as low as reasonably achievable), including automatic exposure control, mA or kV adjustment to individual patient size, and/or use of iterative reconstruction. COMPARISON: None. CT DOSE (mGy.cm): The estimated cumulative dose is 1873.45. FINDINGS: Commercial Front Load Operator topogram: Unremarkable. Lung bases: Right atrial enlargement. Coronary artery calcification. No pericardial or pleural effusion. Multifocal patchy solid consolidation greater at the right lung base but also involving the left. Liver: Normal morphology. Several well-defined subcentimeter hypodense lesions, likely hepatic cysts or hamartomas. Patent hepatic vasculature. Biliary: No intrahepatic or extrahepatic biliary ductal dilatation. Normal gallbladder. Pancreas: Moderate parenchymal atrophy. Spleen: Normal. Adrenal glands: Normal. Kidneys and ureters: Dominant left renal cyst, which is grossly simple appearing. Right renal parenchyma normal. No nephrolithiasis or hydronephrosis. Ureters nondistended. Bladder: Normal. Pelvic organs: Uterus surgically absent. Bowel: Mild wall thickening of the proximal transverse colon may be due to underdistention. No bowel obstruction. The appendix is not identified. Peritoneal cavity: No free fluid or intraperitoneal gas. Lymph nodes: No enlarged lymph nodes in the abdomen or pelvis. Vasculature: Atherosclerosis of the normal caliber abdominal aorta. IVC patent. Abdominal wall: Post surgical changes of the ventral abdominal wall. Musculoskeletal: Degenerative changes of the spine. Osteopenia. No acute osseous injury is apparent. IMPRESSION: 1. No acute intra-abdominal injury. 2. Multifocal consolidation at the lung bases concerning for pneumonia or aspiration. Electronically signed by: Tab Aguilera M.D. 11/13/2018 8:[address] ANGIOGRAM OF THE CHEST CLINICAL HISTORY: Respiratory distress. Suspected pulmonary embolism. TRAUMA. PATIENT FOUND ON FLOOR. COMPARISON STUDY: Chest CT dated 02/17/2014 TECHNIQUE: Following the IV administration of 119 mL of Optiray-320, CT angiogram of the thorax was performed from the thoracic inlet to the lung bases utilizing the pulmonary embolus protocol. Images are reviewed in the axial, sagittal, and coronal planes. IV contrast was administered without complication. MIP imaging was performed. A dose lowering technique was utilized adhering to the principles of ALARA. CT DOSE: FINDINGS: Within the upper abdomen, there is partial visualization of a 9 cm left renal cyst. The heart is enlarged with coronary artery calcifications. There are borderline enlarged mediastinal lymph nodes. The ascending thoracic aorta measures 32 mm. The study is degraded by respiratory motion artifact. There are no filling defects uterus suspicious for acute pulmonary embolism. There is a trace right pleural effusion There is pulmonary emphysema. There is a 34 mm right upper lobe pleural-based mass suspicious for neoplasm. There is a tangential 18 mm nodule. There are b ilateral lower lobe and right middle lobe airspace opacity suspicious for pneumonia. IMPRESSION: 1. No evidence of acute pulmonary embolism 2. Cardiomegaly and coronary artery calcifications 3. Borderline enlarged mediastinal lymph nodes 4. 34 mm right upper lobe pulmonary mass with adjacent tangential 18 mm nodule. The finding is highly suspicious for neoplasm 5. Bilateral lower lobe and right middle lobe airspace opacities suspicious for pneumonia Electronically signed by: Bharat Forbes M.D. 11/13/2018 8:[address] DOSE: 1873.45 mGy.cm HISTORY: fall TECHNIQUE: Multiaxial CT images of the cervical spine were performed and reformatted in the sagittal and coronal plane without the use of contrast. A dose lowering technique was utilized adhering to the principles of ALARA. COMPARISON: None. FINDINGS: No fractures within the cervical spine. There is mild reversal of the normal lordotic curvature with 2 mm of anterolisthesis of C4 on C5 and 2 mm of retrolisthesis of C5 on C6. Moderate disc space narrowing at C5-C6 and C6-C7. Mild disc space narrowing at C4-C5. Moderate facet degenerative changes throughout the majority of the cervical spine. Prevertebral soft tissues and the C1-C2 interval are intact. No pneumothorax. IMPRESSION: No fractures within the cervical spine. Degenerative changes as described above. Electronically signed by: Brian Perez M.D. 11/13/2018 8:[address]AST CT DOSE: HISTORY: Fall. Evaluate for trauma. TECHNIQUE: Multiaxial CT images of the head were performed without the use of intravenous contrast. Automated exposure control was utilized for this study. A dose lowering technique was utilized adhering to the principles of ALARA. Comparison: Head CT 10/20/2018. Findings: Trace fluid within the left sphenoid sinus. The mastoid air cells are clear. The calvarium and skull base are intact. There is no mass, hematoma, midline shift, acute infarct. White matter hypodensity is nonspecific but suggestive of microvascular ischemic change. The ventricles and sulci demonstrate mild age-related involutional changes. Impression: No significant change compared to the prior study. No acute intracranial abnormality. Electronically signed by: Brian Perez M.D. 11/13/2018 8:25 AM XR chest 1V portable CLINICAL HISTORY: Sepsis COMPARISON STUDY: 10/20/2018 FINDINGS: The heart remains mildly enlarged. There is a 2.5 cm dense right upper lung zone nodule. While unchanged from October 20, 2018, this nodule has enlarged when compared the prior February 2016 study. There is interstitial thickening. There is blunting of the right lateral costophrenic angle. There are right lower lobe airspace opacities, pneumonia versus atelectasis.[ IMPRESSION: 1. Trace right pleural effusion 2. Progressive right basilar airspace opacities, pneumonia versus atelectasis 3. Persistent 2.5 cm dense right upper lung zone nodule. This remains indeterminate as this has enlarged when compared a prior 2017 study 4. Emphysema Electronically signed by: Bharat Forbes M.D. 11/13/2018 8:08 AM ECG Data Attestation: I personally reviewed and interpreted this ECG as follows: Indication: SOB/dyspnea Rate (beats per minute): 127 Rhythm: sinus tachycardia Findings: + other (changes appear ischemia in nature ), + ST depression (diffused) and + ST elevation (and AVR); no PAC, no PVC and no ectopy Comparison ECG Date: from (10/20/18) Change: the following changes noted (ST depressions are similar but worsened ) Blood Pressure Blood Pressure Findings: Elevated blood pressure Blood Pressure Disposition: further management by hospitalist MDM Narrative The patient is an 88-year-old female who presented to the emergency department after being found on the floor in her personal shelter. The patient was felt to have fallen but also was covered in emesis and was having difficulty breathing. The patient was placed on BiPAP prior to arrival. Her initial EKG showed significant ST segment abnormalities which could be consistent with ischemia or possibly venous thrombi embolic disease. The patient has a DNR form and is comfort measures only. The patient was able to be weaned off of the BiPAP and was placed on an oxygen by mask. She was reevaluated multiple times. She was treated with IV fluids as well as IV antibiotic's. Radiographic studies were obtained to rule out significant trauma including CT the head and neck. She also had CT the chest abdomen and pelvis. Ultimately she was found to have signs of pulmonary infiltrate which could be consistent with infection versus acute aspiration. The patient's oxygen saturation continued to improve. She was reevaluated multiple times. I discussed the patient's laboratory and radiographic studies with her. I also discussed her case with the on-call [facility] hospitalist group. They have agreed to evaluate the patient in the emergency department for further management disposition. Impression & Plan Respiratory failure, Hypoxia, Pneumonia, Altered mental status, Acute hypotension Critical Care Time Critical Care Time: Yes Total Critical Care Time: 45 I have personally spent 45 minutes of critical care time in the direct management of this patient. This includes bedside care, interpretation of diagnostic studies, and testing, discussion with consultants, patient, and family members, and other required patient management activities. This 45 minutes is in excess of all separately billable procedures. Discharge Plan Visit Data *Final* Discharge Date/Time: 11/13/18 10:17 Chief Complaint: Respiratory Distress ED Provider: Paco Swain Discharge Problem: Respiratory failure, Hypoxia, Pneumonia, Altered mental status, Acute hypotension Patient Disposition: Admitted As Inpatient Discharge Instructions Interventions: ED Discharge Assessment Last Done: 11/13/18 10:17 Discharge Problem: Respiratory failure Qualifiers: Chronicity: unspecified Respiratory failure complication: hypoxia Qualified Code(s): J96.91 - Respiratory failure, unspecified with hypoxia Pneumonia Qualifiers: Pneumonia type: due to unspecified organism Laterality: unspecified laterality Lung location: unspecified part of lung Qualified Code(s): J18.9 - Pneumonia, unspecified organism Altered mental status Qualifiers: Altered mental status type: unspecified Qualified Code(s): R41.82 - Altered mental status, unspecified The scribe's documentation has been prepared under my direction and personally reviewed by me in its entirety. I confirm that the note above accurately reflects all work, treatment, procedures, and medical decision making performed by me.
[2018-11-13] MEDS ORDERED: SODIUM CHLORIDE 0.9% 1000ML 1,000 ML IV ONE (08:07)
[2018-11-13 08:09] LABS: Base Excess VBG 6.1 mEq/L; HCO3 VBG 34 mmol/L; PCO2 VBG 64 mmHg (38-50); PO2 VBG 29 mmHg; pH VBG 7.35 (7.36-7.41)
[2018-11-13 08:09] LABS: Basophils # (auto) 0.03 K/uL (0-0.2); Basophils % (auto) 0.2 %; Eosinophils # (auto) 0.03 K/uL (0-0.5); Eosinophils % (auto) 0.2 %; Hematocrit (blood only) 42.6 % (37-47); Hemoglobin 13.8 g/dL (12.0-16.0); Immature Granulocytes # (auto) 0.05 K/uL (0.00-0.02); Immature Granulocytes % (auto) 0.4 %; Lymphocytes # (auto) 0.55 K/uL (1.2-3.4); Lymphocytes % (auto) 3.9 %; Mean Corpuscular Hemoglobin 32.9 pg (25-34); Mean Corpuscular Hgb Conc 32.4 g/dL (32-36); Mean Corpuscular Volume 101.7 fL (80-100); Mean Platelet Volume 10.7 fL (7.4-10.4); Monocytes # (auto) 1.71 K/uL (0.11-0.59); Monocytes % (auto) 12.1 %; Neutrophils # (auto) 11.72 K/uL (1.4-6.5); Neutrophils % (auto) 83.2 %; Platelet Count 249 K/uL (130-400); RDW Coefficient of Variation 14.8 % (11.5-14.5); RDW Standard Deviation 54.6 fL (36.4-46.3); Red Blood Count 4.19 M/uL (4.2-5.4); White Blood Count 14.09 K/uL (4.8-10.8)
--- NOTE | 2018-11-13 08:09 | XRay Report ---
XR chest 1V portable CLINICAL HISTORY: Sepsis COMPARISON STUDY: 10/20/2018 FINDINGS: The heart remains mildly enlarged. There is a 2.5 cm dense right upper lung zone nodule. Wh ile unchanged from October 20, 2018, this nodule has enlarged when compared the prior February 2016 s tudy. There is interstitial thickening. There is blunting of the right lateral costophrenic angle. Th ere are right lower lobe airspace opacities, pneumonia versus atelectasis.[ IMPRESSION: 1. Trace right pleural effusion 2. Progressive right basilar airspace opacities, pneumonia versus atelectasis 3. Persistent 2.5 cm dense right upper lung zone nodule. This remains indeterminate as this has enlar ged when compared a prior 2017 study 4. Emphysema Electronically signed by: Bharat Forbes M.D. 11/13/2018 8:08 AM
[2018-11-13] MEDS ORDERED: OPTIRAY 320 125ml IV PRN (08:14)
[2018-11-13 08:18] LABS: Oxygen Saturation VBG < 60.0 %
[2018-11-13] MEDS ORDERED: PIPERACILLIN/TAZOBACTAM 4.5 GM/120 ML BAG IV ONE (08:18)
[2018-11-13] MEDS ORDERED: PIPERACILL/TAZOBAC CONSULT ACTIVE PRN ×2 (08:18→11:27)
[2018-11-13 08:19] LABS: INR 1.1 (0.9-1.1); Partial Thromboplastin Ratio 0.8; Partial Thromboplastin Time 22.7 Seconds (21.0-31.0)
--- NOTE | 2018-11-13 08:26 | CT Scan Report ---
HEAD CT NONCONTRAST CT DOSE: HISTORY: Fall. Evaluate for trauma. TECHNIQUE: Multiaxial CT images of the head were performed without the use of intravenous contrast. A utomated exposure control was utilized for this study. A dose lowering technique was utilized adheri ng to the principles of ALARA. Comparison: Head CT 10/20/2018. Findings: Trace fluid within the left sphenoid sinus. The mastoid air cells are clear. The calvarium and skull base are intact. There is no mass, hematoma, midline shift, acute infarct. White matter hyp odensity is nonspecific but suggestive of microvascular ischemic change. The ventricles and sulci dem onstrate mild age-related involutional changes. Impression: No significant change compared to the prior study. No acute intracranial abnormality. Electronically signed by: Brian Perez M.D. 11/13/2018 8:25 AM
--- NOTE | 2018-11-13 08:31 | CT Scan Report ---
CERVICAL SPINE CT CT DOSE: 1873.45 mGy.cm HISTORY: fall TECHNIQUE: Multiaxial CT images of the cervical spine were performed and reformatted in the sagittal and coronal plane without the use of contrast. A dose lowering technique was utilized adhering to th e principles of ALARA. COMPARISON: None. FINDINGS: No fractures within the cervical spine. There is mild reversal of the normal lordotic curva ture with 2 mm of anterolisthesis of C4 on C5 and 2 mm of retrolisthesis of C5 on C6. Moderate disc s pace narrowing at C5-C6 and C6-C7. Mild disc space narrowing at C4-C5. Moderate facet degenerative ch anges throughout the majority of the cervical spine. Prevertebral soft tissues and the C1-C2 interval are intact. No pneumothorax. IMPRESSION: No fractures within the cervical spine. Degenerative changes as described above. Electronically signed by: Brian Perez M.D. 11/13/2018 8:30 AM
--- NOTE | 2018-11-13 08:36 | CT Scan Report ---
CT abd pelvis IV con only CLINICAL HISTORY: 88 years-old Female presenting with fall, respiratory distress. TECHNIQUE: Multidetector CT of the abdomen and pelvis was performed after the administration of intra venous contrast. IV contrast: 119 mL of Optiray 320. One or more dose lowering techniques were used c onsistent with the principles of ALARA (as low as reasonably achievable), including automatic exposur e control, mA or kV adjustment to individual patient size, and/or use of iterative reconstruction. COMPARISON: None. CT DOSE (mGy.cm): The estimated cumulative dose is 1873.45. FINDINGS: [employer] topogram: Unremarkable. Lung bases: Right atrial enlargement. Coronary artery calcification. No pericardial or pleural effusi on. Multifocal patchy solid consolidation greater at the right lung base but also involving the left. Liver: Normal morphology. Several well-defined subcentimeter hypodense lesions, likely hepatic cysts or hamartomas. Patent hepatic vasculature. Biliary: No intrahepatic or extrahepatic biliary ductal dilatation. Normal gallbladder. Pancreas: Moderate parenchymal atrophy. Spleen: Normal. Adrenal glands: Normal. Kidneys and ureters: Dominant left renal cyst, which is grossly simple appearing. Right renal parench yma normal. No nephrolithiasis or hydronephrosis. Ureters nondistended. Bladder: Normal. Pelvic organs: Uterus surgically absent. Bowel: Mild wall thickening of the proximal transverse colon may be due to underdistention. No bowel obstruction. The appendix is not identified. Peritoneal cavity: No free fluid or intraperitoneal gas. Lymph nodes: No enlarged lymph nodes in the abdomen or pelvis. Vasculature: Atherosclerosis of the normal caliber abdominal aorta. IVC patent. Abdominal wall: Post surgical changes of the ventral abdominal wall. Musculoskeletal: Degenerative changes of the spine. Osteopenia. No acute osseous injury is apparent. IMPRESSION: 1. No acute intra-abdominal injury. 2. Multifocal consolidation at the lung bases concerning for pneumonia or aspiration. Electronically signed by: Tab Aguilera M.D. 11/13/2018 8:34 AM
[2018-11-13 08:46] LABS: Alanine Aminotransferase 14 U/L (12-78); Albumin Level 3.4 gm/dl (3.4-5.0); Alkaline Phosphatase 58 U/L (45-117); Aspartate Aminotransferase 36 U/L (15-37); BUN Creatinine Ratio 28.5 (10-20); Bilirubin,Total 0.8 mg/dl (0.2-1); Blood Urea Nitrogen 39 mg/dl (7-18); Calcium 9.1 mg/dl (8.5-10.1); Carbon Dioxide 34 mmol/L (21-32); Chloride 96 mmol/L (98-107); Est GFR (African American) 39.5; Est GFR (Non-African American) 34.1; Globulin 3.4 gm/dl (2.5-4.0); Glucose 157 mg/dl (70-99); Magnesium 2.2 mg/dl (1.8-2.4); Potassium 3.8 mmol/L (3.5-5.1); Sodium 139 mmol/L (136-145); Total Protein 6.8 gm/dl (6.4-8.2); Troponin I 0.052 ng/ml (0-0.045)
--- NOTE | 2018-11-13 08:53 | CT Scan Report ---
CT ANGIOGRAM OF THE CHEST CLINICAL HISTORY: Respiratory distress. Suspected pulmonary embolism. TRAUMA. PATIENT FOUND ON FLOOR. COMPARISON STUDY: Chest CT dated 02/17/2014 TECHNIQUE: Following the IV administration of 119 mL of Optiray-320, CT angiogram of the thorax was p erformed from the thoracic inlet to the lung bases utilizing the pulmonary embolus protocol. Images a re reviewed in the axial, sagittal, and coronal planes. IV contrast was administered without complica tion. MIP imaging was performed. A dose lowering technique was utilized adhering to the principles o f ALARA. CT DOSE: FINDINGS: Within the upper abdomen, there is partial visualization of a 9 cm left renal cyst. The heart is enlarged with coronary artery calcifications. There are borderline enlarged mediastinal lymph nodes. The ascending thoracic aorta measures 32 mm. The study is degraded by respiratory motion artifact. There are no filling defects uterus suspicious for acute pulmonary embolism. There is a trace right pleural effusion There is pulmonary emphysema. There is a 34 mm right upper lobe pleural-based mass suspicious for pete plasm. There is a tangential 18 mm nodule. There are bilateral lower lobe and right middle lobe airsp vicky opacity suspicious for pneumonia. IMPRESSION: 1. No evidence of acute pulmonary embolism 2. Cardiomegaly and coronary artery calcifications 3. Borderline enlarged mediastinal lymph nodes 4. 34 mm right upper lobe pulmonary mass with adjacent tangential 18 mm nodule. The finding is highly suspicious for neoplasm 5. Bilateral lower lobe and right middle lobe airspace opacities suspicious for pneumonia Electronically signed by: Bharat Forbes M.D. 11/13/2018 8:51 AM
--- NOTE | 2018-11-13 10:23 | History & Physical Report ---
Date of Service November 13, 2018 Assessment & Plan (1) Respiratory failure: (2) Pneumonia: (3) Elevated lactic acid level: Pt is 88 y/o F with PMH chronic atrial fibrillation not on anticoagulation, diastolic heart failure, hypothyroidism, dementia, CKD III, known lung mass presented to ER from [facility] for hypoxia. It is reported that patient was found on the ground this morning covered in vomit. It is reported that EMS reports patient with oxygen saturations in the 50's% and was placed on CPAP and transported to ER. In ER P: 126, R: 36, BP:94/71, 94% on CPAP. BP increased to 124/75 after 1L NSS. WBC: 14, H/H: 13.8/42, CO2: 34 (baseline 35), POC Lactate: 3.0, pr ocalcitonin: 21 VBG: pH: 7.35, pCO2: 64, pO2: 29, HCO3: [address] C-spine without acute changes CTA CHEST: No evidence of acute pulmonary embolism. Cardiomegaly and coronary artery calcifications. Borderline enlarged mediastinal lymph nodes. 34 mm right upper lobe pulmonary mass with adjacent tangential 18 mm nodule. The finding is highly suspicious for neoplasm. Bilateral lower lobe and right middle lobe airspace opacities suspicious for pneumonia Possible aspiration pneumonia. -In ER patient was able to be weaned off of CPAP and onto high flow oxygen mask -In ER given 1L NSS, Zosyn -Blood cultures pending, UA and urine culture pending -Trend lactic acid -Influenza screen pending -Aspiration precautions -N.p.o. for now -Speech evaluation -BiPAP as needed -Gentle IVF -Repeat VBG in 6 hours -CBC, BMP in a.m. (4) Elevated troponin: Mildly elevated Troponin:0.[address] depression anterior lateral leads Possible demand ischemia secondary to respiratory failure, a-fib rvr -trend troponin -limited echo -repeat ekg in am (5) Acute kidney injury superimposed on CKD: Cr: 1.37. Baseline ~0.9 -IVF -Monitor renal functions -Avoid nephrotoxic agents (6) Afib: Chronic atrial fibrillation not on anticoagulation, not on rate or rhythm control medications Initially presented to ER A. fib RVR with rate 126 down to 101 -Monitor in tele -Lopressor 2.5mg IV Q6h prn HR>120 (7) Diastolic CHF: Chronic diastolic CHF Recent echo 10/30/2018: EF: 55-60%, no wall motion abnormalities Currently patient appears on the dry side -Closely monitor volume status -Hold Lasix and metolazone currently (8) Dementia: H/O Dementia, Depression -Convert valproate p.o. to IV for now since n.p.o. -Hold olanzapine, mirtazapine, sertraline currently while npo with plans to resume as soon as possible when able (9) Hypothyroidism: TSH: 4.5 on 10/30/18 -Convert levothyroxine from po to IV while npo (10) Lung mass: Pt with known right lung mass Pt's daughter reports decision was made to not proceed with further workup DVT Prophylaxis -Heparin SQ DNR/DNI as per POLST and as per discussion with pt's daughter, Tasneem Follows with Dr Valdez at [facility] for routine care Pt was seen and care coordinated with Dr Webster. See addendum History of Present Illness Chief Complaint: Hypoxia Primary Care Provider: [facility] Pt is 88 y/o F with PMH chronic atrial fibrillation not on anticoagulation, diastolic heart failure, hypothyroidism, dementia, CKD III, known lung mass presented to ER from [facility] for hypoxia. It is reported that patient was found on the ground this morning covered in vomit. It is reported that EMS reports patient with oxygen saturations in the 50's% and was placed on CPAP and transported to ER. Patient alert and oriented to self only. She reports she thinks she has had a cough for couple days. Patient is unsure where she is at and is unsure why she is here. She currently is denying any complaints. This provider was able to speak with patient's daughter, Tasneem who reports that patient is confused at baseline which worsens if she is out of her normal envi ronment. Her daughter reports 2 days ago she noticed she had a cough however was doing well otherwise and eating or drinking. Daughter reports she spoke to patient on phone last night who sounded congested and had a cough. Further review of systems unable to be obtained secondary to patient's cognitive function. Allergies Allergy/AdvReac Type Severity Reaction Status Date / Time No Known Allergies Allergy Verified 11/13/18 09:47 Home Medications Home Medications Medication Instructions Recorded Confirmed Type Mucinex DM 1 tab PO Q12H PRN 11/08/17 11/13/18 History acetaminophen [Tylenol] 650 mg PO TID PRN 11/08/17 11/13/18 History cholecalciferol (vitamin D3) 1,000 unit PO QAM 11/08/17 11/13/18 History [Vitamin D3] divalproex 500 mg PO HS 11/08/17 11/13/18 History ferrous sulfate 325 mg PO BID 11/08/17 11/13/18 History furosemide 40 mg PO QAM 11/08/17 11/13/18 History guaifenesin [Tussin] 5 ml PO Q4H PRN 11/08/17 11/13/18 History levothyroxine 150 mcg PO QAM 11/08/17 11/13/18 History loratadine 10 mg PO HS PRN 11/08/17 11/13/18 History potassium chloride 20 meq PO QAM 11/08/17 11/13/18 History sennosides [Senna Lax] 8.6 mg PO BID PRN 11/08/17 11/13/18 History calcium carbonate [Oysco-500] 500 mg PO QAM 09/03/18 11/13/18 History fluticasone propionate 2 spray INTRANASAL DAILY PRN 09/03/18 11/13/18 History diphenhydramine-acetaminophen 1 tab PO HS 10/20/18 11/13/18 History [Non-Aspirin PM] divalproex 250 mg PO QAM 10/20/18 11/13/18 History mirtazapine 15 mg PO HS 10/20/18 11/13/18 History olanzapine 5 mg PO QAM 10/20/18 11/13/18 History olanzapine 10 mg PO HS 10/20/18 11/13/18 History sertraline 50 mg PO QAM 10/20/18 11/13/18 History aspirin 325 mg PO QAM 11/13/18 11/13/18 History furosemide 20 mg PO QAM 11/13/18 11/13/18 History furosemide 40 mg PO DAILY PRN 11/13/18 11/13/18 History metolazone 5 mg PO UD 11/13/18 11/13/18 History Past Med/Surg History Medical History CKD (chronic kidney disease), stage III (Chronic) Hypertension (Chronic) Hyperlipidemia (Chronic) Diverticular disease (Chronic) Kidney stones (Chronic) Osteoarthritis (Chronic) Alzheimer disease (Chronic) Anemia (Chronic) Generalized weakness (Chronic) Abnormality of gait (Chronic) Episodic mood disorder (Chronic) Afib (Chronic) Diastolic CHF (Chronic) SINGH (iron deficiency anemia) (Chronic) Hypothyroidism (Chronic) Dementia (Chronic) Surgical History H/O: hysterectomy (Chronic) H/O colectomy (Chronic) Family History Family/Other Family history of irritable bowel syndrome Social History Preferred Language: Stateless Communication Ability: Effective Seasonal Sales Associate Required: No Beliefs That Will Affect Care: None Current Living Situation: Personal Care Facility Other Information That Helps Us Care for You: No Feels Safe at Home: Yes Safety Concerns: Feels Safe At This Time Smoking Status: Unknown if ever smoked Review of Systems Review of Systems: Unobtainable due to cognitive status Physical Exam Physical Exam: General: no distress, WDWN Head: normocephalic, atraumatic Eyes: PERRL, EOM's intact, conjunctiva non-injected, anicteric ENT: normal inspection external ears, nose, mucous membranes dry Neck: supple, trachea midline Lungs: clear, no respiratory distress, no wheezing/rhonchi/rales CV: RRR, no murmur, no pretibial edema Abd: normal BS, soft, no tender apparent tenderness Ext: no cyanosis, no calf tenderness Neuro: Alert, oriented to person only, generalized weakness, no focal deficits noted, normal affect Skin: warm, dry; left anterior lower leg with open wound with hematoma collection Results & Data Vital Signs (Past 12 Hours) Vital Signs Temp Pulse Resp BP Pulse Ox 11/13/18 10:09 37 C 11/13/18 10:00 114 H 24 119/79 92 11/13/18 09:45 102 H 29 H 131/76 90 11/13/18 09:30 119 H 25 H 126/73 90 11/13/18 09:15 97 H 22 122/66 92 11/13/18 09:00 101 H 26 H 124/75 96 11/13/18 08:45 102 H 27 H 111/74 96 11/13/18 08:31 121 H 34 H 122/66 11/13/18 08:30 129 H 36 H 11/13/18 08:26 115 H 33 H 140/81 90 11/13/18 08:00 110 H 30 H 122/74 95 11/13/18 07:45 118 H 38 H 103/73 97 11/13/18 07:42 128 H 33 H 95 11/13/18 07:36 125 H 34 H 95 11/13/18 07:34 128 H 28 H 94/71 L 90 11/13/18 07:32 126 H 36 H 94/71 L 94 Laboratory Results Short CBC 11/13/18 Range/Units 07:43 WBC 14.09 H (4.8-10.8) K/uL Hgb 13.8 (12.0-16.0) g/dL Hct 42.6 (37-47) % Plt Count 249 (130-400) K/uL BMP 11/13/18 07:43 Sodium 139 Potassium 3.8 Chloride 96 L Carbon Dioxide 34 H BUN 39 H Creatinine 1.37 H Glucose 157 H Calcium 9.1 Cardiac Enzymes 11/13/18 Range/Units 07:43 Troponin I 0.052 H* (0-0.045) ng/ml Liver Function 11/13/18 Range/Units 07:43 Total Bilirubin 0.8 (0.2-1) mg/dl AST 36 (15-37) U/L ALT 14 (12-78) U/L Alkaline Phosphatase 58 (45-117) U/L Albumin 3.4 (3.4-5.0) gm/dl Diagnostic Findings CT HEAD: Impression: No significant change compared to the prior study. No acute intracranial abnormality. C-SPINE CT: IMPRESSION: No fractures within the cervical spine. Degenerative changes as described above. CTA CHEST: IMPRESSION: 1. No evidence of acute pulmonary embolism 2. Cardiomegaly and coronary artery calcifications 3. Borderline enlarged mediastinal lymph nodes 4. 34 mm right upper lobe pulmonary mass with adjacent tangential 18 mm nodule. The finding is highly suspicious for neoplasm 5. Bilateral lower lobe and right middle lobe airspace opacities suspicious for pneumonia CT ABD/PELVIS: IMPRESSION: 1. No acute intra-abdominal injury. 2. Multifocal consolidation at the lung bases concerning for pneumonia or aspiration. CXR: IMPRESSION: 1. Trace right pleural effusion 2. Progressive right basilar airspace opacities, pneumonia versus atelectasis 3. Persistent 2.5 cm dense right upper lung zone nodule. This remains indeterminate as this has enlarged when compared a prior 2017 study 4. Emphysema ECG Rate (beats per minute): 127 Rhythm: atrial fibrillation Findings: + ST depression (Anterolateral) Code Status & VTE Plan VTE Prophylaxis Plan VTE Prophylaxis will be ordered: Yes Supervising Physician Co-Signing Physician Notes Patient is an 88-year-old female with multiple comorbidities presents from [facility] with history of unwitnessed fall, hypoxia, was found to have oxygen saturation in 50s. History is limited secondary to patient's dementia. Patient is unsure of the events prior to admission. She denies any chest pain, shortness of breath, dizziness, nausea, abdominal pain. She admits to having cough for a couple of days. Please review HPI for complete details of presentation. Patient was noted to be in sepsis with hypoxia, elevated white count, lactic acidosis, elevated procalcitonin, ARTI. Also noted to have elevated troponin, likely secondary to demand ischemia. Currently she denies any chest pain. Imaging studies suggestive of multifocal pneumonia. VBG suggestive of hypercapnia. Influenza screen is negative. On review of records, patient is DNI DNR and no aggressive measures as per records. Patient is on oxygen mask maintaining her saturations in the low 90s. On exam patient is elderly, in no apparent distress, normocephalic atraumatic, coarse breath sounds, irregularly irregular rhythm, no murmur, abdomen soft nontender, 1+ bilateral lower extremity edema, oriented only to person, left lower extremity wound with small hematoma noted. Grossly no focal neurological deficits. Acute hypoxic, hypercapnic respiratory failure Multifocal pneumonia: ? Aspiration Sepsis: Tachypnea, tachycardia, leukocytosis, lactic acidosis with source of infection Obtain cultures IV fluids, broad-spectrum antibiotics--Vanco, Zosyn Aspiration precautions supplemental oxygen, BiPAP as needed DuoNeb's Trend lactate levels, VBG Speech eval Aspiration precautions Elevated troponin--likely demand ischemia secondary to sepsis, hypoxia He denies any chest pain Unwitnessed fall CT head, neck CT: No acute findings PT/OT Left Leg wound: Consulted wound care Resume home medications as able (olanzapine, mirtazapine, sertraline ) I personally reviewed the record. Patient is interviewed and examined at bedside. Patient's care is coordinated with Sapna Galeana PA-C. Please refer to the documentation above for details of patient's presentation and for discussion of other issues. (1) Respiratory failure Chronicity: unspecified Respiratory failure complication: hypoxia Qualified Code(s): J96.91 - Respiratory failure, unspecified with hypoxia
[2018-11-13] MEDS ORDERED: ONDANSETRON INJ 2 MG/ML 2 ML VIAL IV PRN (10:51)
[2018-11-13] MEDS ORDERED: CONSULT PHARMACY STA (10:51)
[2018-11-13] MEDS ORDERED: METOPROLOL TARTRATE 1 MG/ML VIAL IV PRN (10:51)
[2018-11-13] MEDS ORDERED: PATIENT'S HEIGHT AND/OR WEIGHT NEEDED SCH (11:15)
[2018-11-13] MEDS ORDERED: ALBUT/IPRATROP 3MG/0.5MG NEB 3 ML VIAL NEB PRN (11:17)
[2018-11-13] MEDS ORDERED: VANCOMYCIN CONSULT ACTIVE PRN (11:27)
[2018-11-13] MEDS: SODIUM CHLORIDE 0.9% 1000ML 1,000 ML IV SCH (11:30)
[2018-11-13 11:32] LABS: Influenza A virus by PCR Neg for Influ A (Neg); Influenza B virus by PCR Neg for Influ B (Neg)
[2018-11-13] MEDS ORDERED: VANCOMYCIN HCL 1,500 MG in SODIUM CHLORIDE 0.9% 500 ML IV ONE (11:45)
[2018-11-13] MEDS: ALBUT/IPRATROP 3MG/0.5MG NEB 3 ML VIAL NEB SCH ×3 (11:52→19:26)
--- NOTE | 2018-11-13 11:58 | Pharmacy Report ---
Pharmacy Abx Initial Consult - Date of Service November 13, 2018 - Pharmacy Dosing Scope Date of Consult: 11/13/18 Consultation requested by: Lissett GREENE Pharmacy is consulted to initiate vancomycin/zosyn IV/PO dosing therapy, order appropriate labs and adjust drug dose/frequency. - Subjective The patient is a 88 year old F admitted on 11/13/18 10:00. - Objective Height: 5 ft 5 in Weight: 62.5 kg Vital Signs (Past 12hrs): Vital Signs Temp Pulse Pulse Resp BP BP Pulse Ox 11/13/18 10:56 36.5 C 98 H 24 120/75 90 11/13/18 10:09 37 C 11/13/18 10:00 114 H 24 119/79 92 11/13/18 09:45 102 H 29 H 131/76 90 11/13/18 09:30 119 H 25 H 126/73 90 11/13/18 09:15 97 H 22 122/66 92 11/13/18 09:00 101 H 26 H 124/75 96 11/13/18 08:45 102 H 27 H 111/74 96 11/13/18 08:31 121 H 34 H 122/66 11/13/18 08:30 129 H 36 H 11/13/18 08:26 115 H 33 H 140/81 90 11/13/18 08:00 110 H 30 H 122/74 95 11/13/18 07:45 118 H 38 H 103/73 97 11/13/18 07:42 128 H 33 H 95 11/13/18 07:36 125 H 34 H 95 11/13/18 07:34 128 H 28 H 94/71 L 90 11/13/18 07:32 126 H 36 H 94/71 L 94 Lab Results (24hrs): Laboratory Tests (24 Hours) 11/13/18 11/13/18 11/13/18 07:43 07:43 07:43 WBC 14.09 H Neut # (Auto) 11.72 H Creatinine 1.37 H Est Cr Clr Drug Dosing Not Reportable Procalcitonin 21.42 H Micro Results: 11/13/18 07:42 Aerobic Blood Culture - Pending Blood Anaerobic Blood Culture - Pending 11/13/18 07:42 Aerobic Blood Culture - Pending Blood Anaerobic Blood Culture - Pending - Risk Factors for Resistance * Resident in a fpc or extended-care facility - Assessment & Plan Assessment 88 year old F with atrial fibrillation (not anticoagulated), diastolic heart failure, hypothyroidism, dementia, CKD III, and known lung mass presented to ED from fpc with hypoxia, reports a cough. Chest CT "bilateral lower lobe and right middle lobe airspace opacities suspicious for pneumonia", possible aspiration as patient did have episode of vomiting prior to being found on the ground. Patient's WBC elevated at 14, procalcitonin 21 (patient does have renal impairment), afebrile, on oxymask. SCR 1.37 acutely elevated, est. CrCL ~25 mL/min. Initiating vancomcyin/zosyn for suspected pneumonia. Plan Vancomycin IV * Estimated PK Parameters: Vdf 0.7, Jose 0.025 hr-1, t1/2 27 hr * Loading dose: 1500 mg (24 mg/kg) * Maintenance dose: half life greater than 24 hours and therefore will dose by levels, expect improvement * Goal trough level 15-20 mcg/mL * Random level ordered with AM labs * A less than traditional dose and/or extended dosing interval has/have been selected due to likelihood of drug accumulation in obese patient/patient with h/o CKD. Piperacillin/tazobactam * 4.5 g bolus administered over 30 minutes, then 3.375 g IV extended infusion every 8 hours for CrCl greater than 20 mL/min Pharmacy will continue to follow and will adjust dose/frequency as necessary. Thank you.
[2018-11-13] MEDS: VALPROATE SOD IV SCH ×3 (12:18→23:54)
[2018-11-13] MEDS: DEXTROSE 5% IV SCH ×3 (12:18→23:54)
[2018-11-13] MEDS ORDERED: PNEUMOCOCCAL POLYSACCHARIDES 25 MCG/0.5 ML VIAL/SYR IM ONE (14:00)
[2018-11-13] MEDS ORDERED: INFLUENZA VACCINE HIGH DOSE 65+ 0.5 ML SYR IM ONE (14:00)
[2018-11-13] MEDS ORDERED: INFLUENZA ADMINISTRATION CHARGE ONE (14:00)
[2018-11-13] MEDS ORDERED: PNEUMOCOCCAL ADMINISTRATION CHARGE ONE (14:00)
[2018-11-13] MEDS: HEPARIN SOD 5,000 UNIT/0.5 ML VIAL SQ SCH ×2 (14:04→19:59)
[2018-11-13 16:35] LABS: Base Excess VBG 0.8 mEq/L; pH VBG 7.36 (7.36-7.41)
[2018-11-13] MEDS: PIPERACILLIN/TAZOBACTAM 3.375 GM in DEXTROSE 5% 100 ML IV SCH ×2 (17:47→23:58)
[2018-11-13] MEDS ORDERED: HEPARIN SOD 5,000 UNIT/0.5 ML VIAL SQ SCH (21:00)
[2018-11-14 01:26] LABS: Appearance Urine Clear (Clear); Bacteria Urine Automated Negative (Negative); Bilirubin Urine Negative (Negative); Blood Urine 3+ (Negative); Cast Urine Automated 0 /lpf (0-5); Color Urine Yellow; Glucose Urine UA Negative (Negative); Ketones Urine Negative (Negative); Leukocyte Esterase Urine Negative (Negative); Nitrite Urine Negative (Negative); Protein Urine Trace (Negative); RBC Urine Automated 0-4 /hpf (0-4); Specific Gravity Urine > 1.045 (1.000-1.030); Urobilinogen Urine Negative (Negative); WBC Urine Automated 0 /hpf (0-5); pH Urine 5.5 (4.5-7.5)
[2018-11-14] MEDS: HEPARIN SOD 5,000 UNIT/0.5 ML VIAL SQ SCH ×3 (03:04→20:54)
[2018-11-14] MEDS: VALPROATE SOD IV SCH ×3 (06:09→17:44)
[2018-11-14] MEDS: DEXTROSE 5% IV SCH ×3 (06:09→17:44)
[2018-11-14 06:38] LABS: Basophils # (auto) 0.02 K/uL (0-0.2); Basophils % (auto) 0.2 %; Eosinophils # (auto) 0.01 K/uL (0-0.5); Eosinophils % (auto) 0.1 %; Hematocrit (blood only) 34.6 % (37-47); Hemoglobin 11.1 g/dL (12.0-16.0); Immature Granulocytes # (auto) 0.02 K/uL (0.00-0.02); Immature Granulocytes % (auto) 0.2 %; Lymphocytes # (auto) 0.79 K/uL (1.2-3.4); Lymphocytes % (auto) 7.9 %; Mean Corpuscular Hemoglobin 32.3 pg (25-34); Mean Corpuscular Hgb Conc 32.1 g/dL (32-36); Mean Corpuscular Volume 100.6 fL (80-100); Monocytes # (auto) 0.83 K/uL (0.11-0.59); Monocytes % (auto) 8.4 %; Neutrophils # (auto) 8.27 K/uL (1.4-6.5); Neutrophils % (auto) 83.2 %; Platelet Count 181 K/uL (130-400); Red Blood Count 3.44 M/uL (4.2-5.4); White Blood Count 9.94 K/uL (4.8-10.8)
[2018-11-14 07:15] LABS: BUN Creatinine Ratio 34.8 (10-20); Calcium 7.7 mg/dl (8.5-10.1); Creatinine Clr Calc Pharmacy 37.3 ml/min; Est GFR (Non-African American) 55.2; Magnesium 2.1 mg/dl (1.8-2.4); Potassium 3.1 mmol/L (3.5-5.1)
[2018-11-14] MEDS: ALBUT/IPRATROP 3MG/0.5MG NEB 3 ML VIAL NEB SCH ×4 (07:16→23:06)
[2018-11-14] MEDS: PIPERACILLIN/TAZOBACTAM 3.375 GM in DEXTROSE 5% 100 ML IV SCH ×3 (07:34→23:56)
[2018-11-14] MEDS ORDERED: POTASSIUM ACETATE 10 MEQ in 0.9 % SODIUM CHLORIDE 100 ML IV STA (07:56)
[2018-11-14] MEDS ORDERED: D5W AND 1/2NSS 1,000 ML IV SCH (08:00)
[2018-11-14] MEDS ORDERED: FUROSEMIDE 40 MG/4 ML VIAL IV STA (08:12)
[2018-11-14] MEDS ORDERED: CALCIUM GLUCONATE 10% 1,000 MG in SODIUM CHLORIDE 0.9% 50 ML IV ONE ×2 (08:15→18:45)
--- NOTE | 2018-11-14 08:37 | XRay Report ---
XR chest 1V portable CLINICAL HISTORY: follow up lung infiltrates COMPARISON STUDY: Chest radiograph and chest CT November 13, 2018. FINDINGS: There is no pneumothorax. Small bilateral pleural effusions have developed. Interstitial th ickening has developed. Bibasilar opacities persist. A 2.7 cm right upper lobe nodule is again noted. Moderate cardiomegaly is present. IMPRESSION: 1. Interval development of pulmonary edema. 2. Increase in right basilar opacity which favors pneumonia. Increase in left lower lung opacity with volume loss which may reflect left lower lobe atelectasis. 3. Redemonstration of the suspicious right upper lobe lesion. Electronically signed by: Rodri Palacios M.D. 11/14/2018 8:35 AM
[2018-11-14] MEDS: SODIUM CHLORIDE 0.9% 1000ML 1,000 ML IV SCH (08:46)
[2018-11-14] MEDS: POTASSIUM CHLORIDE / WTR 10 MEQ/100 ML PLCT IV SCH ×4 (08:49→22:19)
[2018-11-14] MEDS ORDERED: ACETAMINOPHEN 65 ML IV ONE (08:58)
[2018-11-14] MEDS ORDERED: LEVOTHYROXINE SODIUM 75 MCG in SYRINGE 0 ML IV SCH (09:00)
[2018-11-14] MEDS ORDERED: VANCOMYCIN HCL 1,000 MG in SODIUM CHLORIDE 0.9% 250 ML IV SCH (09:00)
--- NOTE | 2018-11-14 11:37 | Pharmacy Report ---
Pharmacy Abx Dose Short Note - Date of Service November 14, 2018 - Assessment & Plan Assessment 88 year old F receiving vancomycin/zosyn for treatment of pneumonia Day # 2 of antimicrobial therapy. Plan Vancomycin * Random level of 12.3 mcg/mL is subtherapeutic, SCr improved to 0.92, CCl est. 37.3, Ke 0.035, T1/2 19.8 hours * Will begin dosing vancomycin at 1000 mg (15.6 mg/kg) q20H * Dosing at half-life as small elderly ladies can clear vancomycin rapidly * Goal trough 15-20 * Trough ordered for 11/16 @0030 Pharmacy will continue to follow and will adjust dose/frequency as necessary. Thank you.
--- NOTE | 2018-11-14 12:58 | Hospitalist Progress Note ---
Date of Service November 14, 2018 Assessment & Plan (1) Respiratory failure: Unwitnessed Fall Metabolic Encephalopathy Acute respiratory failure with hypoxia secondary to right sided pneumonia -88 y/o F with PMH chronic atrial fibrillation not on anticoagulation, diastolic heart failure, hypothyroidism, dementia, CKD III, known lung mass presented to ER from [facility] for hypoxia. It is reported that patient was found on the ground covered in vomit. It is reported that EMS reports patient with oxygen saturations in the 50's% and was placed on CPAP and transported to ER. -admission CT HEAD and CT C-spine without acute changes -admission CTA CHEST: No evidence of acute pulmonary embolism. Cardiomegaly and coronary artery calcifications. Borderline enlarged mediastinal lymph nodes. 34 mm right upper lobe pulmonary mass with adjacent tangential 18 mm nodule. The finding is highly suspicious for neoplasm. Bilateral lower lobe and right middle lobe airspace opacities suspicious for pneumonia -procalcitonin of 21 (2) Pneumonia: -right sided pneumonia -patient was started empirically on admission on 11/13/18 with Zosyn and Vancomycin -11/14/18 de-escalate antibiotics to Zosyn alone, last dose of Vancomycin being given on 11/14/18, blood cultures with no growth to date -nebulizer treatments (3) Lung mass: -patient is known to have right lung mass and patient's daughter reports that as medical power of marine fireman, she did not feel that the lung mass workup is appropriate given patient's age and co-morbidities -hospitalist physician did discuss with patient's daughter on 11/14/18 at the bedside that if patient's pneumonia and respiratory issues do not improve with antibiotics then there may be benefit for bronchoscopy for management of pneumonia and at same time may give more information about the lung mass -patient's daughter would prefer IV antibiotic treatment for now but appreciated hospitalist doctor suggestions (4) Elevated lactic acid level: -Lactic Acid of 5 on admission -resolved with IV fluids -normal lactic acid level 11/14/18 (5) Diastolic CHF: Acute on Chronic diastolic CHF -Echocardiogram 10/30/2018: EF: 55-60%, no wall motion abnormalities -Echocardiogram 11/13/18 with EF 60 to 65% and no wall motion abnormalities were noted -BNP on 11/14/18 above 8000. the elevated BNP may reflect fluid overload from recent IV medications and IV hydration -Lasix 40 mg IV given on 11/14/18 (6) Elevated troponin: -troponins peaked to 0.107 on this admission -elevated troponin levels likely due to demand ischemia from illness -Echocardiogram 11/13/18 with EF 60 to 65% and no wall motion abnormalities were noted (7) Afib: -Chronic atrial fibrillation not on anticoagulation, not on rate or rhythm control medications, patient's daughter reports that the patient has had atrial fibrillation for years and no other doctor discussed about blood thinners -Initially presented to ER A. fib RVR with rate 126 down to 101 -Lopressor 2.5mg IV Q6h prn HR>120 -telemetry monitoring -discussed with patient's daughter that patient benefits from anticoagulation to prevent stroke but at this time the plan is to stabilize patient's respiratory health issues. we talked about also risks of potential bleeding with systemic anticoagulation. patient's daughter prefers that anticoagulation issue to be revisited later. -heart rates are currently controlled (8) Acute kidney injury superimposed on CKD: -admission Creatinine 1.37 -acute kidney injury has resolved with IV fluids (9) Hypothyroidism: TSH: 4.5 on 10/30/18 -patient is on oral levothyroxine at home -because of poor appetite at this time and multiple IV medications, will avoid IV levothyroxine at this time (10) Dementia: History of Dementia, Depression -Convert valproate p.o. to IV for now because of poor oral status -Hold olanzapine, mirtazapine, sertraline because of poor oral status DVT Prophylaxis -Heparin SQ DNR/DNI as per POLST and as per discussion with pt's daughter, Tasneem ([phone]; [phone]) Follows with Dr Valdez at [facility] for routine care Subjective Patient seen and examined and very weak. she needed assistance of the nurse and physician to help her sit up. She reported that at the shelter, her daughter would wheel her in the wheelchair. Patient breathing on oxygen mask but sometimes appears lethargic. She does not appear to be in distress. Patient's daughter Tasneem subsequently came to the hospital and more discussions were held about patient's past medical history, current health status, and future health care plans Physical Exam Constitutional: + frail appearing Eyes: PERRL, conjunctivae normal, anicteric sclerae EOM intact bilaterally ENMT: external ear and nose normal, oropharynx normal Neck: normal visual inspection Respiratory: normal respiratory effort Auscultation: + crackles Cardiovascular: Rate/Rhythm: regular rate and + irregularly irregular Gastrointestinal (Abdomen): normal bowel sounds, soft, nontender, no hepatosplenomegaly Musculoskeletal: Head/Neck/Chest: normocephalic and head atraumatic Results & Data Vital Signs (Past 12 Hours) Vital Signs Temp Pulse Pulse Pulse Resp BP Pulse Ox 11/14/18 11:56 36.7 C 68 18 91/57 L 94 11/14/18 10:49 98 H 18 97 11/14/18 08:00 94 H 11/14/18 07:55 37.1 C 106 H 30 H 131/84 93 11/14/18 07:19 98 H 20 95 11/14/18 05:34 94 11/14/18 05:22 96 11/14/18 03:37 11/14/18 02:58 36.5 C 95 H 29 H 138/71 96 11/14/18 00:53 Pulse Ox 11/14/18 11:56 11/14/18 10:49 11/14/18 08:00 11/14/18 07:55 11/14/18 07:19 11/14/18 05:34 11/14/18 05:22 11/14/18 03:37 95 11/14/18 02:58 11/14/18 00:53 96 (1) Diastolic CHF Heart failure chronicity: acute on chronic Qualified Code(s): I50.33 - Acute on chronic diastolic (congestive) heart failure (2) Respiratory failure Chronicity: unspecified Respiratory failure complication: hypoxia Qualified Code(s): J96.91 - Respiratory failure, unspecified with hypoxia
[2018-11-14] MEDS ORDERED: ACETAMINOPHEN 65 ML IV PRN (17:00)
[2018-11-14] MEDS ORDERED: SODIUM CHLORIDE 0.9% 1000ML 250 ML IV ONE (17:04)
[2018-11-14 18:13] LABS: Albumin Level 2.2 gm/dl (3.4-5.0); BUN Creatinine Ratio 28.5 (10-20); Calcium 8.3 mg/dl (8.5-10.1); Creatinine Clr Calc Pharmacy 30.4 ml/min; Est GFR (African American) 49.9; Est GFR (Non-African American) 43.1; Potassium 3.1 mmol/L (3.5-5.1)
[2018-11-14 18:16] LABS: Albumin Globulin Ratio 0.6 (0.9-2); Bilirubin,Total 0.5 mg/dl (0.2-1); Globulin 3.6 gm/dl (2.5-4.0); Total Protein 5.8 gm/dl (6.4-8.2)
[2018-11-14] MEDS ORDERED: POTASSIUM CHLORIDE 20 MEQ TABCR PO STA (18:16)
[2018-11-14] MEDS ORDERED: Nursing to Pharmacy Communication ONE (19:14)
[2018-11-14] MEDS ORDERED: POTASSIUM CHLORIDE 10 MEQ TABCR PO STA (19:17)
[2018-11-14] MEDS ORDERED: SODIUM CHLORIDE 0.9% 250 ML IV SCH (23:00)
[2018-11-14] MEDS: DIVALPROEX EXTENDED RELEASE 500 MG TAB PO SCH (23:57)
[2018-11-15] MEDS ORDERED: SODIUM CHLORIDE 0.9% 500 ML IV SCH (00:15)
[2018-11-15] MEDS ORDERED: SODIUM CHLORIDE 0.9% 1000ML 1,000 ML IV SCH (01:15)
[2018-11-15 02:57] LABS: Basophils # (auto) 0.02 K/uL (0-0.2); Basophils % (auto) 0.2 %; Eosinophils # (auto) 0.04 K/uL (0-0.5); Eosinophils % (auto) 0.4 %; Hemoglobin 10.2 g/dL (12.0-16.0); Immature Granulocytes # (auto) 0.02 K/uL (0.00-0.02); Immature Granulocytes % (auto) 0.2 %; Lymphocytes # (auto) 0.64 K/uL (1.2-3.4); Lymphocytes % (auto) 7.1 %; Mean Corpuscular Hemoglobin 32.8 pg (25-34); Mean Corpuscular Volume 102.9 fL (80-100); Mean Platelet Volume 9.8 fL (7.4-10.4); Monocytes # (auto) 0.57 K/uL (0.11-0.59); Monocytes % (auto) 6.4 %; Neutrophils # (auto) 7.67 K/uL (1.4-6.5); Neutrophils % (auto) 85.7 %; Platelet Count 160 K/uL (130-400); Red Blood Count 3.11 M/uL (4.2-5.4); White Blood Count 8.96 K/uL (4.8-10.8)
[2018-11-15 03:00] LABS: Mean Corpuscular Hgb Conc 31.9 g/dL (32-36)
[2018-11-15 03:18] LABS: BUN Creatinine Ratio 33.3 (10-20); Calcium 7.5 mg/dl (8.5-10.1); Creatinine Clr Calc Pharmacy 37.7 ml/min; Est GFR (African American) 64.8; Est GFR (Non-African American) 55.9; Potassium 3.9 mmol/L (3.5-5.1)
[2018-11-15 03:21] LABS: Troponin I 0.04 ng/ml (0-0.045)
[2018-11-15] MEDS: HEPARIN SOD 5,000 UNIT/0.5 ML VIAL SQ SCH ×3 (03:46→20:04)
[2018-11-15] MEDS ORDERED: CALCIUM GLUCONATE 10% 1,000 MG in SODIUM CHLORIDE 0.9% 50 ML IV ONE (04:00)
[2018-11-15] MEDS: LEVOTHYROXINE SODIUM 150 MCG TABLET PO SCH (06:01)
[2018-11-15 06:21] LABS: Basophils # (auto) 0.02 K/uL (0-0.2); Basophils % (auto) 0.2 %; Eosinophils # (auto) 0.04 K/uL (0-0.5); Eosinophils % (auto) 0.5 %; Immature Granulocytes # (auto) 0.01 K/uL (0.00-0.02); Immature Granulocytes % (auto) 0.1 %; Lymphocytes # (auto) 0.74 K/uL (1.2-3.4); Lymphocytes % (auto) 8.8 %; Mean Corpuscular Hemoglobin 31.8 pg (25-34); Mean Corpuscular Hgb Conc 31.3 g/dL (32-36); Mean Corpuscular Volume 101.9 fL (80-100); Mean Platelet Volume 9.6 fL (7.4-10.4); Monocytes # (auto) 0.57 K/uL (0.11-0.59); Monocytes % (auto) 6.8 %; Neutrophils # (auto) 6.99 K/uL (1.4-6.5); Neutrophils % (auto) 83.6 %; Platelet Count 154 K/uL (130-400); RDW Coefficient of Variation 15.2 % (11.5-14.5); RDW Standard Deviation 55.6 fL (36.4-46.3); Red Blood Count 3.14 M/uL (4.2-5.4); White Blood Count 8.37 K/uL (4.8-10.8)
[2018-11-15 07:00] LABS: Albumin Level 1.9 gm/dl (3.4-5.0); BUN Creatinine Ratio 32.9 (10-20); Calcium 8.3 mg/dl (8.5-10.1); Creatinine Clr Calc Pharmacy 37.7 ml/min; Est GFR (African American) 64.8; Est GFR (Non-African American) 55.9; Magnesium 2.1 mg/dl (1.8-2.4); Potassium 3.9 mmol/L (3.5-5.1)
[2018-11-15 07:03] LABS: Albumin Globulin Ratio 0.6 (0.9-2); Bilirubin,Total 0.5 mg/dl (0.2-1); Globulin 3.2 gm/dl (2.5-4.0); Total Protein 5.1 gm/dl (6.4-8.2)
[2018-11-15] MEDS: ALBUT/IPRATROP 3MG/0.5MG NEB 3 ML VIAL NEB SCH ×3 (07:13→19:20)
[2018-11-15] MEDS: DIVALPROEX DELAY RELEASE 125 MG TABEC PO SCH (07:43)
[2018-11-15] MEDS: SERTRALINE HCL 50 MG TABLET PO SCH (07:43)
[2018-11-15] MEDS: PIPERACILLIN/TAZOBACTAM 3.375 GM in DEXTROSE 5% 100 ML IV SCH ×3 (07:48→23:20)
[2018-11-15] MEDS: POLYETHYLENE (MIRALAX) 17 GM PACK PO SCH (10:11)
--- NOTE | 2018-11-15 12:56 | Hospitalist Progress Note ---
Date of Service November 15, 2018 Assessment & Plan (1) Respiratory failure: Unwitnessed Fall Metabolic Encephalopathy Acute respiratory failure with hypoxia secondary to right sided pneumonia -88 y/o F with PMH chronic atrial fibrillation not on anticoagulation, diastolic heart failure, hypothyroidism, dementia, CKD III, known lung mass presented to ER from [facility] for hypoxia. It is reported that patient was found on the ground covered in vomit. It is reported that EMS reports patient with oxygen saturations in the 50's% and was placed on CPAP and transported to ER. -admission CT HEAD and CT C-spine without acute changes -admission CTA CHEST: No evidence of acute pulmonary embolism. Cardiomegaly and coronary artery calcifications. Borderline enlarged mediastinal lymph nodes. 34 mm right upper lobe pulmonary mass with adjacent tangential 18 mm nodule. The finding is highly suspicious for neoplasm. Bilateral lower lobe and right middle lobe airspace opacities suspicious for pneumonia -procalcitonin of 21 (2) Pneumonia: -right sided pneumonia -patient was started empirically on admission on 11/13/18 with Zosyn and Vancomycin -11/14/18 de-escalate antibiotics to Zosyn alone, last dose of Vancomycin being given on 11/14/18, blood cultures with no growth to date -11/15/18: the admission blood cultures no growth after 48 hours. would still continue Zosyn for now as there appears to be clinical improvement. will plan on patient to have Chest X ray -nebulizer treatments (3) Lung mass: -patient is known to have right lung mass and patient's daughter reports that as medical power of patent prosecution attorney, she did not feel that the lung mass workup is appropriate given patient's age and co-morbidities -11/14/18: hospitalist physician did discuss with patient's daughter on 11/14/18 at the bedside that if patient's pneumonia and respiratory issues do not improve with antibiotics then there may be benefit for bronchoscopy for management of pneumonia and at same time may give more information about the lung mass -11/14/18 patient's daughter would prefer IV antibiotic treatment for now but appreciated hospitalist doctor suggestions (4) Elevated lactic acid level: -Lactic Acid of 5 on admission -resolved with IV fluids -normal lactic acid level 11/14/18 (5) Diastolic CHF: Acute on Chronic diastolic CHF -Echocardiogram 10/30/2018: EF: 55-60%, no wall motion abnormalities -Echocardiogram 11/13/18 with EF 60 to 65% and no wall motion abnormalities were noted -BNP on 11/14/18 above 8000. the elevated BNP may reflect fluid overload from recent IV medications and IV hydration -Lasix 40 mg IV given on 11/14/18; Her blood pressures subsequently were low and she needed IV fluids -11/15/18: at this time, will hold any scheduled Lasix unless patient develops more respiratory symptoms (6) Elevated troponin: -troponins peaked to 0.107 on this admission -elevated troponin levels likely due to demand ischemia from illness -Echocardiogram 11/13/18 with EF 60 to 65% and no wall motion abnormalities were noted (7) Afib: -Chronic atrial fibrillation not on anticoagulation, not on rate or rhythm control medications, patient's daughter reports that the patient has had atrial fibrillation for years and no other doctor discussed about blood thinners -Initially presented to ER A. fib RVR with rate 126 down to 101 -Lopressor 2.5mg IV Q6h prn HR>120 -telemetry monitoring -11/14/18: discussed with patient's daughter that patient benefits from anticoagulation to prevent stroke but at this time the plan is to stabilize patient's respiratory health issues. we talked about also risks of potential bleeding with systemic anticoagulation. patient's daughter prefers that anticoagulation issue to be revisited later. -heart rates are currently controlled (8) Acute kidney injury superimposed on CKD: -admission Creatinine 1.37 -acute kidney injury has resolved with IV fluids (9) Hypothyroidism: TSH: 4.5 on 10/30/18 -resumed oral Levothyroxine (10) Dementia: History of Dementia, Depression -continue oral valproate acid home medication and sertraline -continue to avoid olanzapine, mirtazapine for now to avoid excessive sedation DVT Prophylaxis -Heparin SQ DNR/DNI as per POLST and as per discussion with pt's daughter, Tasneem ([phone]; [phone]) Follows with Dr Valdez at [facility] for routine care Subjective yesterday patient received a dose of Lasix. Her blood pressures subsequently were low and she needed IV fluids Patient is more awake and alert today. Subjectively she reports that she feels good. Her breathing during my exam appears to be regular. Continues to be on nasal cannula. needed assistance from nurse to help patient sit up for posterior auscultation. however patient is difficult posteriorly because she cannot seem to be be able to take deep full breaths when asked. Patient had a bowel movement today. patient denies abdominal pain. Physical Exam Constitutional: + frail appearing Eyes: PERRL, conjunctivae normal, anicteric sclerae EOM intact bilaterally ENMT: external ear and nose normal, oropharynx normal Neck: normal visual inspection Respiratory: normal respiratory effort respiratory effort appears to be normal on nasal cannula oxygen. however patient is difficult posteriorly because she cannot seem to be be able to take deep full breaths when asked Cardiovascular: Rate/Rhythm: regular rate and + irregularly irregular Gastrointestinal (Abdomen): normal bowel sounds, soft, nontender, no hepatosplenomegaly Musculoskeletal: Head/Neck/Chest: normocephalic and head atraumatic Psychiatric: Orientation: alert and cooperative Results & Data Vital Signs (Past 12 Hours) Vital Signs Temp Pulse Pulse Resp BP Pulse Ox 11/15/18 11:21 36.6 C 97 H 38 H 97/65 L 95 11/15/18 08:00 85 11/15/18 07:13 36.7 C 93 H 30 H 97/64 L 94 11/15/18 06:02 86/46 L 11/15/18 04:13 36.9 C 87 16 90/51 L 94 11/15/18 03:50 83/54 L 11/15/18 02:50 88/55 L 11/15/18 01:10 88/58 L (1) Diastolic CHF Heart failure chronicity: acute on chronic Qualified Code(s): I50.33 - Acute on chronic diastolic (congestive) heart failure (2) Respiratory failure Chronicity: unspecified Respiratory failure complication: hypoxia Qualified Code(s): J96.91 - Respiratory failure, unspecified with hypoxia
--- NOTE | 2018-11-15 14:23 | XRay Report ---
SINGLE VIEW CHEST CLINICAL HISTORY: Follow-up right basilar consolidation. FINDINGS: An AP, portable, upright chest radiograph is compared to study dated 11/14/2018 and correlat ed with chest CT dated 11/13/2018. The examination is degraded by portable technique and patient rotat ion. The heart is enlarged noting atherosclerotic calcification of the thoracic aorta. There is pulmo nary vascular congestion with evidence of interstitial edema. Advanced emphysema and chronic intersti tial thickening is similar to previous. A right apical mass lesion is again noted. There are small pl eural effusions with bibasilar consolidation. No pneumothorax is seen. The skeletal structures are os teopenic. The bony thorax is grossly intact. IMPRESSION: 1. Cardiomegaly emphysema with evidence of congestive failure. This is unchanged from yesterday. 2. There are small pleural effusions with bibasilar consolidation. This is also unchanged. 3. A right apical mass lesion is again noted. Electronically signed by: Rehan Russell M.D. 11/15/2018 2:22 PM
[2018-11-15] MEDS: DIVALPROEX EXTENDED RELEASE 500 MG TAB PO SCH (20:04)
[2018-11-16] MEDS: HEPARIN SOD 5,000 UNIT/0.5 ML VIAL SQ SCH ×3 (05:36→19:57)
[2018-11-16] MEDS: LEVOTHYROXINE SODIUM 150 MCG TABLET PO SCH (05:37)
[2018-11-16 06:12] LABS: Creatinine Clr Calc Pharmacy 42.9 ml/min; Est GFR (African American) 75.8; Est GFR (Non-African American) 65.4
[2018-11-16] MEDS: ALBUT/IPRATROP 3MG/0.5MG NEB 3 ML VIAL NEB SCH ×3 (07:09→23:15)
[2018-11-16] MEDS ORDERED: ACETAMINOPHEN 325 MG TAB PO PRN (07:10)
[2018-11-16] MEDS: DIVALPROEX DELAY RELEASE 125 MG TABEC PO SCH (08:50)
[2018-11-16] MEDS: POLYETHYLENE (MIRALAX) 17 GM PACK PO SCH (08:51)
[2018-11-16] MEDS: SERTRALINE HCL 50 MG TABLET PO SCH (08:51)
[2018-11-16] MEDS: FUROSEMIDE 20 MG TAB PO SCH (08:53)
[2018-11-16] MEDS: PIPERACILLIN/TAZOBACTAM 3.375 GM in DEXTROSE 5% 100 ML IV SCH (08:55)
[2018-11-16] MEDS ORDERED: SODIUM CHLORIDE 0.65% NA SOLN 45 ML (OCEAN) PRN (09:14)
[2018-11-16] MEDS ORDERED: DOXYCYCLINE HYCLATE 100 MG CAP PO STA (09:22)
--- NOTE | 2018-11-16 09:30 | Hospitalist Progress Note ---
Date of Service November 16, 2018 Assessment & Plan (1) Respiratory failure: Unwitnessed Fall Metabolic Encephalopathy Acute respiratory failure with hypoxia secondary to right sided pneumonia -88 y/o F with PMH chronic atrial fibrillation not on anticoagulation, diastolic heart failure, hypothyroidism, dementia, CKD III, known lung mass presented to ER from [facility] for hypoxia. It is reported that patient was found on the ground covered in vomit. It is reported that EMS reports patient with oxygen saturations in the 50's% and was placed on CPAP and transported to ER. -admission CT HEAD and CT C-spine without acute changes -admission CTA CHEST: No evidence of acute pulmonary embolism. Cardiomegaly and coronary artery calcifications. Borderline enlarged mediastinal lymph nodes. 34 mm right upper lobe pulmonary mass with adjacent tangential 18 mm nodule. The finding is highly suspicious for neoplasm. Bilateral lower lobe and right middle lobe airspace opacities suspicious for pneumonia -procalcitonin of 21 (2) Pneumonia: -right sided pneumonia -patient was started empirically on admission on 11/13/18 with Zosyn and Vancomycin -11/14/18 de-escalate antibiotics to Zosyn alone, last dose of Vancomycin being given on 11/14/18, blood cultures with no growth to date -11/15/18: the admission blood cultures no growth after 48 hours. would still continue Zosyn for now as there appears to be clinical improvement. will plan on patient to have Chest X ray -nebulizer treatments -11/16/18 patient has had 2 peripheral IVs of the brachiocephalic area and that perhaps the automated blood pressure cuff is underestimating the blood pressures. Nurse performed manual blood check and systolic matches of low 100s with better diastolic of 70s. as patient appears to be improved clinically and note in acute sepsis, will transitioned patient from Zosyn to ceftriaxone 2 gram daily with BID oral Doxycycline (3) Lung mass: -patient is known to have right lung mass and patient's daughter reports that as medical power of tax attorney, she did not feel that the lung mass workup is appropriate given patient's age and co-morbidities -11/14/18: hospitalist physician did discuss with patient's daughter on 11/14/18 at the bedside that if patient's pneumonia and respiratory issues do not improve with antibiotics then there may be benefit for bronchoscopy for management of pneumonia and at same time may give more information about the lung mass -11/14/18 patient's daughter would prefer antibiotic treatment for now but appreciated hospitalist doctor suggestions (4) Elevated lactic acid level: -Lactic Acid of 5 on admission -resolved with IV fluids -normal lactic acid level 11/14/18 (5) Diastolic CHF: Acute on Chronic diastolic CHF -Echocardiogram 10/30/2018: EF: 55-60%, no wall motion abnormalities -Echocardiogram 11/13/18 with EF 60 to 65% and no wall motion abnormalities were noted -BNP on 11/14/18 above 8000. the elevated BNP may reflect fluid overload from recent IV medications and IV hydration -Lasix 40 mg IV given on 11/14/18; Her blood pressures subsequently were low and she needed IV fluids -11/15/18: Lasix held -11/16/18: possibly the automated blood pressure cuffs are inaccurate, ask nursing for manual blood pressure checks resume Lasix as oral 20 mg daily for now (6) Elevated troponin: -troponins peaked to 0.107 on this admission -elevated troponin levels likely due to demand ischemia from illness -Echocardiogram 11/13/18 with EF 60 to 65% and no wall motion abnormalities were noted (7) Afib: -Chronic atrial fibrillation not on anticoagulation, not on rate or rhythm control medications, patient's daughter reports that the patient has had atrial fibrillation for years and no other doctor discussed about blood thinners -Initially presented to ER A. fib RVR with rate 126 down to 101 -Lopressor 2.5mg IV Q6h prn HR>120 -telemetry monitoring -11/14/18: discussed with patient's daughter that patient benefits from anticoagulation to prevent stroke but at this time the plan is to stabilize patient's respiratory health issues. we talked about also risks of potential bleeding with systemic anticoagulation. patient's daughter prefers that anticoagulation issue to be revisited later. -heart rates are currently controlled (8) Acute kidney injury superimposed on CKD: -admission Creatinine 1.37 -acute kidney injury had resolved with IV fluids (9) Hypothyroidism: TSH: 4.5 on 10/30/18 -oral Levothyroxine (10) Dementia: History of Dementia, Depression -continue oral valproate acid home medication and sertraline -continue to avoid olanzapine, mirtazapine for now to avoide sedation PT?OT evaluations requested DVT Prophylaxis -Heparin SQ DNR/DNI as per AMANDAST and as per discussion with pt's daughter, Tasneem ([phone]; [phone]) Follows with Dr Valdez at [facility] for routine care Subjective Nurse with medical doctor at bedside. Patient on nasal cannula and not in distress. Patient reports she is comfortable. She has some cough. Medical doctor noted that patient has recent low blood pressures on the monitor and automatic cuff but that patient has had 2 peripheral IVs of the brachiocephalic area and that perhaps the automated blood pressure cuff is underestimating the blood pressures. Nurse performed manual blood check and systolic matches of low 100s with better diastolic of 70s. Patient denies lightheadness or dizziness Patient denies symptoms of pain. no chest pain. no abdominal pain. Physical Exam Constitutional: + frail appearing Eyes: PERRL, conjunctivae normal, anicteric sclerae EOM intact bilaterally ENMT: external ear and nose normal, oropharynx normal Neck: normal visual inspection Respiratory: cough, lung congestion Cardiovascular: Rate/Rhythm: regular rate and + irregularly irregular Gastrointestinal (Abdomen): normal bowel sounds, soft, nontender, no hepatosplenomegaly Musculoskeletal: Head/Neck/Chest: normocephalic and head atraumatic Neurologic: PERRL, EOMI, accommodation nl, no face palsy, no dysarthria Psychiatric: Orientation: alert and cooperative Results & Data Vital Signs (Past 12 Hours) Vital Signs Temp Pulse Pulse Resp BP Pulse Ox 11/16/18 07:19 36.4 C L 102 H 32 H 98/49 L 90 11/16/18 07:09 78 16 91 11/16/18 03:53 36.9 C 78 18 92/55 L 95 11/16/18 00:13 36.8 C 87 18 93/55 L 93 (1) Respiratory failure Chronicity: unspecified Respiratory failure complication: hypoxia Qualified Code(s): J96.91 - Respiratory failure, unspecified with hypoxia (2) Diastolic CHF Heart failure chronicity: acute on chronic Qualified Code(s): I50.33 - Acute on chronic diastolic (congestive) heart failure
[2018-11-16] MEDS: cefTRIAXone SODIUM 2,000 MG in DEXTROSE 5% 50 ML IV SCH (11:07)
[2018-11-16] MEDS: DOXYCYCLINE HYCLATE 100 MG CAP PO SCH (19:57)
[2018-11-16] MEDS: DIVALPROEX EXTENDED RELEASE 500 MG TAB PO SCH (19:57)
[2018-11-17] MEDS: LEVOTHYROXINE SODIUM 150 MCG TABLET PO SCH (05:27)
[2018-11-17] MEDS: HEPARIN SOD 5,000 UNIT/0.5 ML VIAL SQ SCH ×3 (05:27→20:20)
[2018-11-17 05:43] LABS: Basophils # (auto) 0.03 K/uL (0-0.2); Basophils % (auto) 0.5 %; Eosinophils # (auto) 0.35 K/uL (0-0.5); Eosinophils % (auto) 6.3 %; Hematocrit (blood only) 34.3 % (37-47); Hemoglobin 10.7 g/dL (12.0-16.0); Immature Granulocytes # (auto) 0.06 K/uL (0.00-0.02); Immature Granulocytes % (auto) 1.1 %; Lymphocytes # (auto) 0.88 K/uL (1.2-3.4); Lymphocytes % (auto) 15.7 %; Mean Corpuscular Hgb Conc 31.2 g/dL (32-36); Mean Corpuscular Volume 102.7 fL (80-100); Mean Platelet Volume 10.2 fL (7.4-10.4); Monocytes # (auto) 0.67 K/uL (0.11-0.59); Neutrophils % (auto) 64.4 %; Platelet Count 207 K/uL (130-400); RDW Coefficient of Variation 14.7 % (11.5-14.5); RDW Standard Deviation 54.8 fL (36.4-46.3); Red Blood Count 3.34 M/uL (4.2-5.4); White Blood Count 5.59 K/uL (4.8-10.8)
[2018-11-17 06:21] LABS: Albumin Globulin Ratio 0.5 (0.9-2); Albumin Level 1.8 gm/dl (3.4-5.0); BUN Creatinine Ratio 42.4 (10-20); Bilirubin,Total 0.3 mg/dl (0.2-1); Calcium 7.9 mg/dl (8.5-10.1); Creatinine Clr Calc Pharmacy 53.6 ml/min; Est GFR (African American) 91.7; Est GFR (Non-African American) 79.1; Globulin 3.3 gm/dl (2.5-4.0); Magnesium 2.3 mg/dl (1.8-2.4); Potassium 4.6 mmol/L (3.5-5.1); Total Protein 5.1 gm/dl (6.4-8.2)
[2018-11-17] MEDS ORDERED: ALBUT/IPRATROP 3MG/0.5MG NEB 3 ML VIAL NEB PRN (07:11)
[2018-11-17] MEDS: ALBUT/IPRATROP 3MG/0.5MG NEB 3 ML VIAL NEB SCH (07:39)
[2018-11-17] MEDS: DIVALPROEX DELAY RELEASE 125 MG TABEC PO SCH (08:54)
[2018-11-17] MEDS: POLYETHYLENE (MIRALAX) 17 GM PACK PO SCH (08:54)
[2018-11-17] MEDS: DOXYCYCLINE HYCLATE 100 MG CAP PO SCH ×2 (08:54→20:20)
[2018-11-17] MEDS: FUROSEMIDE 20 MG TAB PO SCH (08:54)
[2018-11-17] MEDS: SERTRALINE HCL 50 MG TABLET PO SCH (08:55)
--- NOTE | 2018-11-17 09:29 | Hospitalist Progress Note ---
Date of Service November 17, 2018 Assessment & Plan (1) Respiratory failure: Unwitnessed Fall Metabolic Encephalopathy Acute respiratory failure with hypoxia secondary to right sided pneumonia -88 y/o F with PMH chronic atrial fibrillation not on anticoagulation, diastolic heart failure, hypothyroidism, dementia, CKD III, known lung mass presented to ER from [facility] for hypoxia. It is reported that patient was found on the ground covered in vomit. It is reported that EMS reports patient with oxygen saturations in the 50's% and was placed on CPAP and transported to ER. -admission CT HEAD and CT C-spine without acute changes -admission CTA CHEST: No evidence of acute pulmonary embolism. Cardiomegaly and coronary artery calcifications. Borderline enlarged mediastinal lymph nodes. 34 mm right upper lobe pulmonary mass with adjacent tangential 18 mm nodule. The finding is highly suspicious for neoplasm. Bilateral lower lobe and right middle lobe airspace opacities suspicious for pneumonia -procalcitonin of 21 (2) Pneumonia: Acute respiratory failure with hypoxia secondary to right sided pneumonia, treated for Sepsis, -right sided pneumonia -patient was started empirically on admission on 11/13/18 with Zosyn and Vancomy ana lilia -11/14/18 de-escalate antibiotics to Zosyn alone, last dose of Vancomycin being given on 11/14/18, blood cultures with no growth to date -11/15/18: the admission blood cultures no growth after 48 hours. would still continue Zosyn for now as there appears to be clinical improvement. will plan on patient to have Chest X ray -nebulizer treatments -11/16/18 patient has had 2 peripheral IVs of the brachiocephalic area and that perhaps the automated blood pressure cuff is underestimating the blood pressures. Nurse performed manual blood check and systolic matches of low 100s with better diastolic of 70s. as patient appears to be improved clinically and not in acute sepsis, transitioned patient from Zosyn to ceftriaxone 2 gram daily with BID oral Doxycycline -11/17/18: oxygen at 2 liters/min. nurse asked to try to titrate down oxygen. continue Ceftriaxone and Doxycycline (3) Lung mass: right lung mass -patient is known to have right lung mass and patient's daughter reports that as medical power of finance attorney, she did not feel that the lung mass workup is appropriate given patient's age and co-morbidities -11/14/18: hospitalist physician did discuss with patient's daughter on 11/14/18 at the bedside that if patient's pneumonia and respiratory issues do not improve with antibiotics then there may be benefit for bronchoscopy for management of pneumonia and at same time may give more information about the lung mass -11/14/18 patient's daughter would prefer antibiotic treatment for now but appreciated hospitalist doctor suggestions (4) Elevated lactic acid level: -Lactic Acid of 5 on admission -resolved with IV fluids -normal lactic acid level 11/14/18 (5) Diastolic CHF: Acute on Chronic diastolic Congestive heart failure -Echocardiogram 10/30/2018: EF: 55-60%, no wall motion abnormalities -Echocardiogram 11/13/18 with EF 60 to 65% and no wall motion abnormalities were noted -BNP on 11/14/18 above 8000. the elevated BNP may reflect fluid overload from recent IV medications and IV hydration -Lasix 40 mg IV given on 11/14/18; Her blood pressures subsequently were low and she needed IV fluids -11/15/18: Lasix held -11/16/18: possibly the automated blood pressure cuffs are inaccurate, ask nursing for manual blood pressure checks. resumed Lasix as oral 20 mg daily -11/17/18: continue lasix as 20 mg daily for now (6) Elevated troponin: -troponins peaked to 0.107 on this admission -elevated troponin levels likely due to demand ischemia from illness -Echocardiogram 11/13/18 with EF 60 to 65% and no wall motion abnormalities were noted (7) Afib: -Chronic atrial fibrillation not on anticoagulation, not on rate or rhythm control medications, patient's daughter reports that the patient has had atrial fibrillation for years and no other doctor discussed about blood thinners -Initially presented to ER A. fib RVR with rate 126 down to 101 -Lopressor 2.5mg IV Q6h prn HR>120 -telemetry monitoring -11/14/18: discussed with patient's daughter that patient benefits from an ticoagulation to prevent stroke but at this time the plan is to stabilize patient's respiratory health issues. we talked about also risks of potential bleeding with systemic anticoagulation. patient's daughter prefers that anticoagulation issue to be revisited later. -heart rates are currently controlled (8) Acute kidney injury superimposed on CKD: -admission Creatinine 1.37 -acute kidney injury had resolved with IV fluids (9) Hypothyroidism: TSH: 4.5 on 10/30/18 -oral Levothyroxine (10) Dementia: History of Dementia, Depression -continue oral valproate acid home medication and sertraline -continue to avoid olanzapine, mirtazapine for now to avoid sedation PT/OT evaluations DVT Prophylaxis -Heparin SQ DNR/DNI as per POLST and as per discussion with pt's daughter, Tsaneem ([phone]; [phone]) Follows with Dr Valdez at [facility] for routine care Subjective Patient seen and examined . on 2 liters/min. watching TV. she need assistance with nurse and medical doctor to sit up for posterior lung exam. nurse noting that patient appears stronger today with sitting up earlier this AM. patient not in distress. she reports she is feeling fine. she denies acute pain. she is following directions. she denies other acute symptoms. no leg pain at time of my exam. she moves here toes when asked. she lifts her legs slightly when asked while laying on the bed. Physical Exam Constitutional: + frail appearing Eyes: PERRL, conjunctivae normal, anicteric sclerae EOM intact bilaterally ENMT: external ear and nose normal, oropharynx normal Neck: normal visual inspection Respiratory: normal respiratory effort right lung sounds somewhat less than left lung sounds due to pneumonia Cardiovascular: Rate/Rhythm: regular rate and + irregularly irregular Gastrointestinal (Abdomen): normal bowel sounds, soft, nontender, no hepatosplenomegaly Musculoskeletal: Head/Neck/Chest: normocephalic and head atraumatic Neurologic: PERRL, EOMI, accommodation nl, no face palsy, no dysarthria Psychiatric: Orientation: alert and cooperative Results & Data Vital Signs (Past 12 Hours) Vital Signs Temp Pulse Pulse Pulse Resp BP Pulse Ox 11/17/18 07:40 36.5 C 77 18 129/65 92 11/17/18 07:12 78 16 94 11/17/18 04:57 36.3 C L 65 19 113/63 95 11/17/18 00:00 76 11/16/18 23:15 81 16 95 11/16/18 23:00 36.6 C 80 22 112/66 96 (1) Diastolic CHF Heart failure chronicity: acute on chronic Qualified Code(s): I50.33 - Acute on chronic diastolic (congestive) heart failure (2) Respiratory failure Chronicity: unspecified Respiratory failure complication: hypoxia Qualified Code(s): J96.91 - Respiratory failure, unspecified with hypoxia
[2018-11-17] MEDS: cefTRIAXone SODIUM 2,000 MG in DEXTROSE 5% 50 ML IV SCH (13:32)
[2018-11-17] MEDS: DIVALPROEX EXTENDED RELEASE 500 MG TAB PO SCH (20:19)
[2018-11-18] MEDS: HEPARIN SOD 5,000 UNIT/0.5 ML VIAL SQ SCH ×3 (03:31→19:49)
[2018-11-18] MEDS: LEVOTHYROXINE SODIUM 150 MCG TABLET PO SCH (05:46)
[2018-11-18 06:17] LABS: Basophils # (auto) 0.02 K/uL (0-0.2); Basophils % (auto) 0.2 %; Eosinophils # (auto) 0.42 K/uL (0-0.5); Eosinophils % (auto) 4.9 %; Hematocrit (blood only) 37.5 % (37-47); Hemoglobin 11.6 g/dL (12.0-16.0); Immature Granulocytes # (auto) 0.23 K/uL (0.00-0.02); Immature Granulocytes % (auto) 2.7 %; Lymphocytes # (auto) 1.07 K/uL (1.2-3.4); Lymphocytes % (auto) 12.4 %; Mean Corpuscular Hemoglobin 31.9 pg (25-34); Mean Corpuscular Hgb Conc 30.9 g/dL (32-36); Mean Platelet Volume 10.6 fL (7.4-10.4); Monocytes # (auto) 0.67 K/uL (0.11-0.59); Monocytes % (auto) 7.8 %; Platelet Count 205 K/uL (130-400); RDW Coefficient of Variation 14.6 % (11.5-14.5); RDW Standard Deviation 54.6 fL (36.4-46.3); Red Blood Count 3.64 M/uL (4.2-5.4); White Blood Count 8.61 K/uL (4.8-10.8)
[2018-11-18 06:44] LABS: Albumin Level 1.9 gm/dl (3.4-5.0); BUN Creatinine Ratio 42.5 (10-20); Calcium 8.4 mg/dl (8.5-10.1); Creatinine Clr Calc Pharmacy 49.7 ml/min; Est GFR (African American) 89.5; Est GFR (Non-African American) 77.2; Potassium 4.9 mmol/L (3.5-5.1)
[2018-11-18 06:47] LABS: Albumin Globulin Ratio 0.6 (0.9-2); Bilirubin,Total 0.3 mg/dl (0.2-1); Globulin 3.4 gm/dl (2.5-4.0); Total Protein 5.3 gm/dl (6.4-8.2)
[2018-11-18] MEDS: SERTRALINE HCL 50 MG TABLET PO SCH (08:18)
[2018-11-18] MEDS: DIVALPROEX DELAY RELEASE 125 MG TABEC PO SCH (08:18)
[2018-11-18] MEDS: POLYETHYLENE (MIRALAX) 17 GM PACK PO SCH (08:18)
[2018-11-18] MEDS: DOXYCYCLINE HYCLATE 100 MG CAP PO SCH ×2 (08:18→21:13)
[2018-11-18] MEDS: FUROSEMIDE 40 MG TAB PO SCH (08:19)
--- NOTE | 2018-11-18 10:21 | Hospitalist Progress Note ---
Date of Service November 18, 2018 Assessment & Plan (1) Respiratory failure: Unwitnessed Fall Metabolic Encephalopathy Acute respiratory failure with hypoxia secondary to right sided pneumonia -88 y/o F with PMH chronic atrial fibrillation not on anticoagulation, diastolic heart failure, hypothyroidism, dementia, CKD III, known lung mass presented to ER from [facility] for hypoxia. It is reported that patient was found on the ground covered in vomit. It is reported that EMS reports patient with oxygen saturations in the 50's% and was placed on CPAP and transported to ER. -admission CT HEAD and CT C-spine without acute changes -admission CTA CHEST: No evidence of acute pulmonary embolism. Cardiomegaly and coronary artery calcifications. Borderline enlarged mediastinal lymph nodes. 34 mm right upper lobe pulmonary mass with adjacent tangential 18 mm nodule. The finding is highly suspicious for neoplasm. Bilateral lower lobe and right middle lobe airspace opacities suspicious for pneumonia -procalcitonin of 21 (2) Pneumonia: Acute respiratory failure with hypoxia secondary to right sided pneumonia, treated for Sepsis, -right sided pneumonia -patient was started empirically on admission on 11/13/18 with Zosyn and Vancomy ana lilia -11/14/18 de-escalate antibiotics to Zosyn alone, last dose of Vancomycin being given on 11/14/18, blood cultures with no growth to date -11/15/18: the admission blood cultures no growth after 48 hours. would still continue Zosyn for now as there appears to be clinical improvement. will plan on patient to have Chest X ray -nebulizer treatments -11/16/18 patient has had 2 peripheral IVs of the brachiocephalic area and that perhaps the automated blood pressure cuff is underestimating the blood pressures. Nurse performed manual blood check and systolic matches of low 100s with better diastolic of 70s. as patient appears to be improved clinically and not in acute sepsis, transitioned patient from Zosyn to ceftriaxone 2 gram daily with BID oral Doxycycline -11/17/18 to 11/18/18: oxygen at 2 liters/min. nurse asked to try to titrate down oxygen. continue Ceftriaxone and Doxycycline (3) Lung mass: right lung mass -patient is known to have right lung mass and patient's daughter reports that as medical power of workers compensation defense attorney, she did not feel that the lung mass workup is appropriate given patient's age and co-morbidities -11/14/18: hospitalist physician did discuss with patient's daughter on 11/14/18 at the bedside that if patient's pneumonia and respiratory issues do not improve with antibiotics then there may be benefit for bronchoscopy for management of pneumonia and at same time may give more information about the lung mass -11/14/18 patient's daughter would prefer antibiotic treatment for now but appreciated hospitalist doctor suggestions (4) Elevated lactic acid level: -Lactic Acid of 5 on admission -resolved with IV fluids -normal lactic acid level 11/14/18 (5) Diastolic CHF: Acute on Chronic diastolic Congestive heart failure -Echocardiogram 10/30/2018: EF: 55-60%, no wall motion abnormalities -Echocardiogram 11/13/18 with EF 60 to 65% and no wall motion abnormalities were noted -BNP on 11/14/18 above 8000. the elevated BNP may reflect fluid overload from recent IV medications and IV hydration -Lasix 40 mg IV given on 11/14/18; Her blood pressures subsequently were low and she needed IV fluids -11/15/18: Lasix held -11/16/18: possibly the automated blood pressure cuffs are inaccurate, ask nursing for manual blood pressure checks. resumed Lasix as oral 20 mg -11/17/18: continue Lasix as oral 20 mg -11/18/18: oral Lasix as 40 mg daily (6) Elevated troponin: -troponins peaked to 0.107 on this admission -elevated troponin levels likely due to demand ischemia from illness -Echocardiogram 11/13/18 with EF 60 to 65% and no wall motion abnormalities were noted (7) Afib: -Chronic atrial fibrillation not on anticoagulation, not on rate or rhythm control medications, patient's daughter reports that the patient has had atrial fibrillation for years and no other doctor discussed about blood thinners -Initially presented to ER A. fib RVR with rate 126 down to 101 -Lopressor 2.5mg IV Q6h prn HR>120 -telemetry monitoring -11/14/18: discussed with patient's daughter that patient benefits from anticoagulation to prevent stroke but at this time the plan is to stabilize patient's respiratory health issues. we talked about also risks of potential bleeding with systemic anticoagulation. patient's daughter prefers that anticoagulation issue to be revisited later. -heart rates are currently controlled (8) Acute kidney injury superimposed on CKD: -admission Creatinine 1.37 -acute kidney injury had resolved with IV fluids (9) Hypothyroidism: TSH: 4.5 on 10/30/18 -oral Levothyroxine (10) Dementia: History of Dementia, Depression -continue oral valproate acid home medication and sertraline -continue to avoid olanzapine, mirtazapine for now to avoid sedation PT/OT evaluations DVT Prophylaxis -Heparin SQ DNR/DNI as per POLST and as per discussion with pt's daughter, Tasneem ([phone]; [phone]) Follows with Dr Valdez at [facility] for routine care Subjective Patient breathing on 2 liters/min nasal cannula. Coarse breath sounds, some rhonchi. But patient reports feeling comfortable. Respiratory rate normal. she denies acute pain. she has not been out of bed today. have requested that nursing help her go from bed to chair. patient has not stood up since being hospitalized Physical Exam Constitutional: + frail appearing Eyes: PERRL, conjunctivae normal, anicteric sclerae EOM intact bilaterally ENMT: external ear and nose normal, oropharynx normal Neck: normal visual inspection Respiratory: normal respiratory effort Auscultation: + rhonchi Cardiovascular: Rate/Rhythm: regular rate and + irregularly irregular Gastrointestinal (Abdomen): normal bowel sounds, soft, nontender, no hepatosplenomegaly Musculoskeletal: Head/Neck/Chest: normocephalic and head atraumatic Neurologic: PERRL, EOMI, accommodation nl, no face palsy, no dysarthria Psychiatric: Orientation: alert and cooperative Results & Data Vital Signs (Past 12 Hours) Vital Signs Temp Pulse Resp BP Pulse Ox 11/18/18 06:58 36.8 C 78 18 101/68 95 11/17/18 23:08 36.4 C L 85 20 116/70 91 (1) Respiratory failure Chronicity: unspecified Respiratory failure complication: hypoxia Qualified Code(s): J96.91 - Respiratory failure, unspecified with hypoxia (2) Diastolic CHF Heart failure chronicity: acute on chronic Qualified Code(s): I50.33 - Acute on chronic diastolic (congestive) heart failure
[2018-11-18] MEDS: cefTRIAXone SODIUM 2,000 MG in DEXTROSE 5% 50 ML IV SCH (10:43)
[2018-11-18] MEDS: DIVALPROEX EXTENDED RELEASE 500 MG TAB PO SCH (21:13)
[2018-11-19] MEDS: HEPARIN SOD 5,000 UNIT/0.5 ML VIAL SQ SCH ×2 (04:26→12:33)
[2018-11-19] MEDS: LEVOTHYROXINE SODIUM 150 MCG TABLET PO SCH (05:48)
[2018-11-19 07:38] LABS: BUN Creatinine Ratio 44.9 (10-20); Calcium 8.6 mg/dl (8.5-10.1); Creatinine Clr Calc Pharmacy 49.7 ml/min; Est GFR (African American) 89.5; Est GFR (Non-African American) 77.2; Potassium 4.5 mmol/L (3.5-5.1)
--- NOTE | 2018-11-19 07:39 | XRay Report ---
XR chest 1V portable HISTORY: FOLLOW LUNG INFILTRATES COMPARISON: Chest 11/15/2018. FINDINGS: No pneumothorax. Small bilateral pleural effusions and bibasilar densities persist. The hea rt remains enlarged. Perihilar interstitial and vascular thickening remains unchanged. A 2.7 cm right upper lobe subpleural mass is again noted. Emphysema. IMPRESSION: 1. No change in the bilateral pleural effusions and bibasilar densities. 2. The heart remains enlarged and there is mild congestive change. 3. A 2.7 cm right upper lobe mass is again noted. Electronically signed by: Brian Perez M.D. 11/19/2018 7:37 AM
[2018-11-19] MEDS ORDERED: guaiFENesin 600 MG TABCR PO PRN (08:50)
--- NOTE | 2018-11-19 09:12 | Hospitalist Progress Note ---
Date of Service November 19, 2018 Assessment & Plan (1) Respiratory failure: Unwitnessed Fall Metabolic Encephalopathy Acute respiratory failure with hypoxia secondary to right sided pneumonia -88 y/o F with PMH chronic atrial fibrillation not on anticoagulation, diastolic heart failure, hypothyroidism, dementia, CKD III, known lung mass presented to ER from [facility] for hypoxia. It is reported that patient was found on the ground covered in vomit. It is reported that EMS reports patient with oxygen saturations in the 50's% and was placed on CPAP and transported to ER. -admission CT HEAD and CT C-spine without acute changes -admission CTA CHEST: No evidence of acute pulmonary embolism. Cardiomegaly and coronary artery calcifications. Borderline enlarged mediastinal lymph nodes. 34 mm right upper lobe pulmonary mass with adjacent tangential 18 mm nodule. The finding is highly suspicious for neoplasm. Bilateral lower lobe and right middle lobe airspace opacities suspicious for pneumonia -procalcitonin of 21 (2) Pneumonia: Acute respiratory failure with hypoxia secondary to right sided pneumonia, treated for Sepsis, -right sided pneumonia -patient was started empirically on admission on 11/13/18 with Zosyn and Vancomy ana lilia -11/14/18 de-escalate antibiotics to Zosyn alone, last dose of Vancomycin being given on 11/14/18, blood cultures with no growth to date -11/15/18: the admission blood cultures no growth after 48 hours. would still continue Zosyn for now as there appears to be clinical improvement. will plan on patient to have Chest X ray -nebulizer treatments -11/16/18 patient has had 2 peripheral IVs of the brachiocephalic area and that perhaps the automated blood pressure cuff is underestimating the blood pressures. Nurse performed manual blood check and systolic matches of low 100s with better diastolic of 70s. as patient appears to be improved clinically and not in acute sepsis, transitioned patient from Zosyn to ceftriaxone 2 gram daily with BID oral Doxycycline -11/17/18 to 11/18/18 to 11/19/18: remains on oxygen at 2 liters/min. nurse asked to try to titrate down oxygen. on Ceftriaxone and Doxycycline -11/19/18: patient is discharged to [facility] [place] on nasal cannula oxygen 2 liters/minute (patient has been treated in the hospital for primarily acute respiratory failure from right sided pneumonia and completed about 1 week of antibiotics). patient to be discharged on Amilcar xicillin/clavulanate (Augmentin 875mg/125mg) twice a day and oral Doxycycline 100 mg twice a day for 7 more days with daily furosemide 40 mg daily. Discussed with patient/patient's daughter that patient will need to have repeat Chest X ray 1 week from discharge and that if lack of resolution or if patient continues to need supplementary oxygen then consideration from primary care doctor should be given to further antibiotic treatment or refer patient for bronchoscopy evaluation. patient make take guaifenesin every 12 hours as needed for cough (10 tablet supply). patient may take acetaminophen 325 mg every 6 hours as needed for pain or fever (avoid more than 2000 mg daily) (3) Lung mass: right lung mass -patient is known to have right lung mass and patient's daughter reports that as medical power of business attorney, she did not feel that the lung mass workup is appropriate given patient's age and co-morbidities -11/14/18: hospitalist physician did discuss with patient's daughter on 11/14/18 at the bedside that if patient's pneumonia and respiratory issues do not improve with antibiotics then there may be benefit for bronchoscopy for management of p neumonia and at same time may give more information about the lung mass -11/14/18 patient's daughter would prefer antibiotic treatment for now but appreciated hospitalist doctor suggestions (4) Elevated lactic acid level: -Lactic Acid of 5 on admission -resolved with IV fluids -normal lactic acid level 11/14/18 (5) Diastolic CHF: Acute on Chronic diastolic Congestive heart failure -Echocardiogram 10/30/2018: EF: 55-60%, no wall motion abnormalities -Echocardiogram 11/13/18 with EF 60 to 65% and no wall motion abnormalities were noted -BNP on 11/14/18 above 8000. the elevated BNP may reflect fluid overload from recent IV medications and IV hydration -Lasix 40 mg IV given on 11/14/18; Her blood pressures subsequently were low and she needed IV fluids -11/15/18: Lasix held -11/16/18: possibly the automated blood pressure cuffs are inaccurate, ask nursing for manual blood pressure checks. resumed Lasix as oral 20 mg -11/17/18: continue Lasix as oral 20 mg -11/18/18: oral Lasix as 40 mg daily (6) Elevated troponin: -troponins peaked to 0.107 on this admission -elevated troponin levels likely due to demand ischemia from illness -Echocardiogram 11/13/18 with EF 60 to 65% and no wall motion abnormalities were noted (7) Afib: -Chronic atrial fibrillation not on anticoagulation, not on rate or rhythm control medications, patient's daughter reports that the patient has had atrial fibrillation for years and no other doctor discussed about blood thinners -Initially presented to ER A. fib RVR with rate 126 down to 101 -Lopressor 2.5mg IV Q6h prn HR>120 -telemetry monitoring -11/14/18: discussed with patient's daughter that patient benefits from anticoagulation to prevent stroke but at this time the plan is to stabilize patient's respiratory health issues. we talked about also risks of potential bleeding with systemic anticoagulation. patient's daughter prefers that anticoagulation issue to be revisited later. -heart rates are currently controlled -No decisions have been made by patient or daughter to start the blood thinner to prevent stroke risk. Patient may continue to take aspirin 325 mg daily at home but aspirin may be insufficient for stroke risk prevention from atrial fibrillation (8) Acute kidney injury superimposed on CKD: -admission Creatinine 1.37 -acute kidney injury had resolved with IV fluids (9) Hypothyroidism: TSH: 4.5 on 10/30/18 -oral Levothyroxine (10) Dementia: History of Dementia, Depression -continue oral valproate acid home medication and sertraline -continue to avoid olanzapine, mirtazapine for now to avoid sedation -patient's mental status appears stable without use of olanzapine or mirtazapine while in the hospital. would recommend to hold off these medications on discharge unless recommended by outpatient doctors. PT/OT evaluations DVT Prophylaxis -Heparin SQ DNR/DNI as per POLST and as per discussion with pt's daughterTasneem ; [phone]) Discharge Diagnosis: Acute respiratory failure with hypoxia secondary to right sided pneumonia, treated for Sepsis, Acute on Chronic diastolic Congestive heart failure, right lung mass, Acute kidney injury superimposed on Chronic Kidney Disease (acute kidney injury resolved) Subjective Patient with some dry cough. He is able to eat and drink breakfast. no acute shortness of breath. remains needing 2 liters/min. no vomiting. no abdominal pain. no chest pain. no dizziness. no lightheadedness. patient is calm and cooperative Physical Exam Constitutional: + frail appearing Eyes: PERRL, conjunctivae normal, anicteric sclerae EOM intact bilaterally ENMT: external ear and nose normal, oropharynx normal Neck: normal visual inspection Respiratory: normal respiratory effort Auscultation: + rhonchi (and mild crackles) Cardiovascular: Rate/Rhythm: regular rate and + irregularly irregular Gastrointestinal (Abdomen): normal bowel sounds, soft, nontender, no hepatosplenomegaly Musculoskeletal: Head/Neck/Chest: normocephalic and head atraumatic Neurologic: PERRL, EOMI, accommodation nl, no face palsy, no dysarthria Psychiatric: Orientation: alert and cooperative Results & Data Vital Signs (Past 12 Hours) Vital Signs Temp Pulse Resp BP BP Pulse Ox 11/19/18 06:42 36.7 C 79 18 110/70 96 11/18/18 23:15 36.6 C 77 20 111/72 95 (1) Diastolic CHF Heart failure chronicity: acute on chronic Qualified Code(s): I50.33 - Acute on chronic diastolic (congestive) heart failure (2) Respiratory failure Chronicity: unspecified Respiratory failure complication: hypoxia Qualified Code(s): J96.91 - Respiratory failure, unspecified with hypoxia
--- NOTE | 2018-11-19 09:19 | Discharge Summary ---
Date of Service November 19, 2018 Admission HPI Per Admitting Provider Pt is 88 y/o F with PMH chronic atrial fibrillation not on anticoagulation, diastolic heart failure, hypothyroidism, dementia, CKD III, known lung mass presented to ER from [facility] for hypoxia. It is reported that patient was found on the ground this morning covered in vomit. It is reported that EMS reports patient with oxygen saturations in the 50's% and was placed on CPAP and transported to ER. Patient alert and oriented to self only. She reports she thinks she has had a cough for couple days. Patient is unsure where she is at and is unsure why she is here. She currently is denying any complaints. This provider was able to speak with patient's daughter, Tasneem who reports that patient is confused at baseline which worsens if she is out of her normal environment. Her daughter reports 2 days ago she noticed she had a cough however was doing well otherwise and eating or drinking. Daughter reports she spoke to patient on phone last night who sounded congested and had a cough. Further review of systems unable to be obtained secondary to patient's cognitive function. Admission Exam Per Admitting Provider General: no distress, WDWN Head: normocephalic, atraumatic Eyes: PERRL, EOM's intact, conjunctiva non-injected, anicteric ENT: normal inspection external ears, nose, mucous membranes dry Neck: supple, trachea midline Lungs: clear, no respiratory distress, no wheezing/rhonchi/rales CV: RRR, no murmur, no pretibial edema Abd: normal BS, soft, no tender apparent tenderness Ext: no cyanosis, no calf tenderness Neuro: Alert, oriented to person only, generalized weakness, no focal deficits noted, normal affect Skin: warm, dry; left anterior lower leg with open wound with hematoma collection Principal Diagnosis Acute respiratory failure with hypoxia secondary to right sided pneumonia, treated for Sepsis, Acute on Chronic diastolic Congestive heart failure, right lung mass, Acute kidney injury superimposed on Chronic Kidney Disease (acute kidney injury resolved) Discharge Exam Constitutional + frail appearing Eyes PERRL, conjunctivae normal, anicteric sclerae EOM intact bilaterally ENMT external ear and nose normal, oropharynx normal Neck normal visual inspection Respiratory normal respiratory effort Auscultation: + rhonchi (and mild crackles) Cardiovascular Rate/Rhythm: regular rate and + irregularly irregular Gastrointestinal (Abdomen) normal bowel sounds, soft, nontender, no hepatosplenomegaly Musculoskeletal Head/Neck/Chest: normocephalic and head atraumatic Neurologic PERRL, EOMI, accommodation nl, no face palsy, no dysarthria Psychiatric Orientation: alert and cooperative Discharge Data Allergies Allergy/AdvReac Type Severity Reaction Status Date / Time No Known Allergies Allergy Verified 11/13/18 09:47 Consultations 11/13/18 09:09 ED Decision to Admit Stat 11/13/18 10:51 Consult Case Management - Discharge Planning Routine Ordered Studies 11/13/18 07:45 CT abd pelvis IV con only Stat CT angio chest PE protocol Stat CT cervical spine wo con Stat CT head/brain wo con Stat Hospital Course (1) Respiratory failure: Unwitnessed Fall Metabolic Encephalopathy Acute respiratory failure with hypoxia secondary to right sided pneumonia -88 y/o F with PMH chronic atrial fibrillation not on anticoagulation, diastolic heart failure, hypothyroidism, dementia, CKD III, known lung mass presented to ER from [facility] for hypoxia. It is reported that patient was found on the ground covered in vomit. It is reported that EMS reports patient with oxygen saturations in the 50's% and was placed on CPAP and transported to ER. -admission CT HEAD and CT C-spine without acute changes -admission CTA CHEST: No evidence of acute pulmonary embolism. Cardiomegaly and coronary artery calcifications. Borderline enlarged mediastinal lymph nodes. 34 mm right upper lobe pulmonary mass with adjacent tangential 18 mm nodule. The finding is highly suspicious for neoplasm. Bilateral lower lobe and right middle lobe airspace opacities suspicious for pneumonia -procalcitonin of 21 (2) Pneumonia: Acute respiratory failure with hypoxia secondary to right sided pneumonia, treated for Sepsis, -right sided pneumonia -patient was started empirically on admission on 11/13/18 with Zosyn and Vancomycin -11/14/18 de-escalate antibiotics to Zosyn alone, last dose of Vancomycin being given on 11/14/18, blood cultures with no growth to date -11/15/18: the admission blood cultures no growth after 48 hours. would still continue Zosyn for now as there appears to be clinical improvement. will plan on patient to have Chest X ray -nebulizer treatments -11/16/18 patient has had 2 peripheral IVs of the brachiocephalic area and that perhaps the automated blood pressure cuff is underestimating the blood pressures. Nurse performed manual blood check and systolic matches of low 100s with better diastolic of 70s. as patient appears to be improved clinically and not in acute sepsis, transitioned patient from Zosyn to ceftriaxone 2 gram daily with BID oral Doxycycline -11/17/18 to 11/18/18 to 11/19/18: remains on oxygen at 2 liters/min. nurse asked to try to titrate down oxygen. on Ceftriaxone and Doxycycline -11/19/18: patient is discharged to [facility] nursing [facility] on nasal cannula oxygen 2 liters/minute (patient has been treated in the hospital for primarily acute respiratory failure from right sided pneumonia and completed about 1 week of antibiotics). patient to be discharged on Amoxicillin/clavulanate (Augmentin 875mg/125mg) twice a day and oral Doxycycline 100 mg twice a day for 7 more days with daily furosemide 40 mg daily. Discussed with patient/patient's daughter that patient will need to have repeat Chest X ray 1 week from discharge and that if lack of resolution or if patient continues to need supplementary oxygen then consideration from primary care doctor should be given to further antibiotic treatment or refer patient for bronchoscopy evaluation. patient make take guaifenesin every 12 hours as needed for cough (10 tablet supply). patient may take acetaminophen 325 mg every 6 hours as needed for pain or fever (avoid more than 2000 mg daily) (3) Lung mass: right lung mass -patient is known to have right lung mass and patient's daughter reports that as medical power of assistant county attorney, she did not feel that the lung mass workup is appropriate given patient's age and co-morbidities -11/14/18: hospitalist physician did discuss with patient's daughter on 11/14/18 at the bedside that if patient's pneumonia and respiratory issues do not improve with antibiotics then there may be benefit for bronchoscopy for management of pneumonia and at same time may give more information about the lung mass -11/14/18 patient's daughter would prefer antibiotic treatment for now but appreciated hospitalist doctor suggestions (4) Elevated lactic acid level: -Lactic Acid of 5 on admission -resolved with IV fluids -normal lactic acid level 11/14/18 (5) Diastolic CHF: Acute on Chronic diastolic Congestive heart failure -Echocardiogram 10/30/2018: EF: 55-60%, no wall motion abnormalities -Echocardiogram 11/13/18 with EF 60 to 65% and no wall motion abnormalities were noted -BNP on 11/14/18 above 8000. the elevated BNP may reflect fluid overload from recent IV medications and IV hydration -Lasix 40 mg IV given on 11/14/18; Her blood pressures subsequently were low and she needed IV fluids -11/15/18: Lasix held -11/16/18: possibly the automated blood pressure cuffs are inaccurate, ask nursing for manual blood pressure checks. resumed Lasix as oral 20 mg -11/17/18: continue Lasix as oral 20 mg -11/18/18: oral Lasix as 40 mg daily (6) Elevated troponin: -troponins peaked to 0.107 on this admission -elevated troponin levels likely due to demand ischemia from illness -Echocardiogram 11/13/18 with EF 60 to 65% and no wall motion abnormalities were noted (7) Afib: -Chronic atrial fibrillation not on anticoagulation, not on rate or rhythm control medications, patient's daughter reports that the patient has had atrial fibrillation for years and no other doctor discussed about blood thinners -Initially presented to ER A. fib RVR with rate 126 down to 101 -Lopressor 2.5mg IV Q6h prn HR>120 -telemetry monitoring -11/14/18: discussed with patient's daughter that patient benefits from anticoagulation to prevent stroke but at this time the plan is to stabilize patient's respiratory health issues. we talked about also risks of potential bleeding with systemic anticoagulation. patient's daughter prefers that anticoagulation issue to be revisited later. -heart rates are currently controlled -No decisions have been made by patient or daughter to start the blood thinner to prevent stroke risk. Patient may continue to take aspirin 325 mg daily at [facility] but aspirin may be insufficient for stroke risk prevention from atrial fibrillation (8) Acute kidney injury superimposed on CKD: -admission Creatinine 1.37 -acute kidney injury had resolved with IV fluids (9) Hypothyroidism: TSH: 4.5 on 10/30/18 -oral Levothyroxine (10) Dementia: History of Dementia, Depression -continue oral valproate acid home medication and sertraline -continue to avoid olanzapine, mirtazapine for now to avoid sedation -patient's mental status appears stable without use of olanzapine or mirtazapine while in the hospital. would recommend to hold off these medications on discharge unless recommended by outpatient doctors. PT/OT evaluations DVT Prophylaxis -Heparin SQ DNR/DNI as per POLST and as per discussion with pt's daughterTasneem ([phone]; [phone]) Discharge Diagnosis: Acute respiratory failure with hypoxia secondary to right sided pneumonia, treated for Sepsis, Acute on Chronic diastolic Congestive heart failure, right lung mass, Acute kidney injury superimposed on Chronic Kidney Disease (acute kidney injury resolved) Total Time Total Time Spent Total Time Spent (In Minutes): 40 minutes Total Time Includes: Examination of the Patient, Discharge Planning, Medication Reconciliation and Communication With Other Providers Discharge Plan Discharge Items Patient Disposition: Transfer [facility] Reason For Visit: RESPIRTORY FAILURE Discharge Diagnosis: Acute respiratory failure with hypoxia secondary to right sided pneumonia, treated for Sepsis, Acute on Chronic diastolic Congestive heart failure, right lung mass, Acute kidney injury superimposed on Chronic Kidney Disease (acute kidney injury resolved) Condition on Discharge: Fair Activity: Per Instructions section Non-emergency contact: Primary Care Provider Call non-emergency contact if: you have any medication questions Follow-up/Referrals: Charline Jenkins [Primary Care Provider] - Diet: Heart Healthy Addtl Attending Provider Instructions: -patient is discharged to [facility] on nasal cannula oxygen 2 liters/minute -patient has been treated in the hospital for primarily acute respiratory failure from right sided pneumonia and completed about 1 week of antibiotics -patient to be discharged on Amoxicillin/clavulanate (Augmentin 875mg/125mg) twice a day and oral Doxycycline 100 mg twice a day for 7 more days with daily furosemide 40 mg daily -Discussed with patient/patient's daughter that patient will need to have repeat Chest X ray 1 week from discharge and that if lack of resolution or if patient continues to need supplementary oxygen then consideration from primary care doctor should be given to further antibiotic treatment or refer patient for bronchoscopy evaluation -patient make take guaifenesin every 12 hours as needed for cough (10 tablet supply) -patient may take acetaminophen 325 mg every 6 hours as needed for pain or fever (avoid more than 2000 mg daily) -patient also has chronic atrial fibrillation and discussions were made with patient/patient's daughter about considering coumadin therapy for anticoagulation. No decisions have been made to start the blood thinner to prevent stroke risk. Patient may continue to take aspirin 325 mg daily at home but aspirin may be insufficient for stroke risk prevention from atrial fibrillation -patient's mental status appears stable without use of olanzapine or mirtazapine while in the hospital. would recommend to hold off these medications on discharge unless recommended by outpatient doctors. Pending Studies at Discharge: No Stand-Alone Forms: My [facility] Skilled Items Patient informed of condition?: Yes DNR: Yes Discharge Level of Care: Skilled Communicable Disease: No Discharge Prognosis: Stable Lines: None Urinary Catheter: No Medications and DC Order Prescriptions: New doxycycline hyclate 100 mg Capsule 100 mg PO BID 7 Days Qty: 14 RF: 0 acetaminophen 325 mg tablet 325 mg PO Q6H PRN (Reason: pain or fever) 4 Days Qty: 16 RF: 0 amoxicillin-pot clavulanate 875-125 mg tablet 1 tab PO BID 7 Days Qty: 14 RF: 0 guaifenesin [Mucinex] 600 mg Tablet Extended Release 12hr 600 mg PO Q12 PRN (Reason: cough) 5 Days Qty: 10 RF: 0 Continued divalproex 125 mg Tablet,Delayed Release (Dr/Ec) 250 mg PO QAM RF: 0 sertraline 50 mg Tablet 50 mg PO QAM RF: 0 sennosides [Senna Lax] 8.6 mg Tablet 8.6 mg PO BID PRN (Reason: Constipation) RF: 0 guaifenesin [Tussin] 100 mg/5 mL Liquid 5 ml PO Q4H PRN (Reason: Cough) RF: 0 ferrous sulfate 325 mg (65 mg iron) Tablet 325 mg PO BID RF: 0 divalproex 500 mg Tablet Extended Release 24 Hr 500 mg PO HS RF: 0 Mucinex DM 30-600 mg Tablet Extended Release 12 Hr 1 tab PO Q12H PRN (Reason: Congestion) RF: 0 cholecalciferol (vitamin D3) [Vitamin D3] 1,000 unit Capsule 1,000 unit PO QAM RF: 0 levothyroxine 150 mcg Capsule 150 mcg PO QAM RF: 0 loratadine 10 mg Capsule 10 mg PO HS PRN (Reason: Congestion) RF: 0 potassium chloride 20 mEq Tablet Extended Release 20 meq PO QAM RF: 0 calcium carbonate [Oysco-500] 500 mg calcium (1,250 mg) Tablet 500 mg PO QAM RF: 0 fluticasone propionate 50 mcg/actuation [place],Suspension 2 spray INTRANASAL DAILY PRN (Reason: Runny Nose) RF: 0 aspirin 325 mg Tablet,Delayed Release (Dr/Ec) 325 mg PO QAM RF: 0 furosemide 80 mg tablet 40 mg PO DAILY PRN (Reason: Fluid Retention) RF: 0 Discontinued olanzapine 5 mg Tablet 5 mg PO QAM RF: 0 olanzapine 10 mg Tablet 10 mg PO HS RF: 0 mirtazapine 15 mg Tablet 15 mg PO HS RF: 0 diphenhydramine-acetaminophen [Non-Aspirin PM] 25-500 mg Tablet 1 tab PO HS RF: 0 furosemide 40 mg Tablet 40 mg PO QAM RF: 0 acetaminophen [Tylenol] 325 mg Tablet 650 mg PO TID PRN (Reason: Pain) RF: 0 metolazone 5 mg tablet 5 mg PO UD RF: 0 furosemide 20 mg tablet 20 mg PO QAM RF: 0 Discharge Orders: Discharge Order (Routine); Ordered 11/19/18 Ordered By: Jay Reynolds Admission Data Admit Date/Time: 11/13/18 10:00 Attending Provider: Jay Reynolds Admit Provider: Missael Webster Primary Care Provider: Charline Jenkins [facility] ; Jay Reynolds
[2018-11-19] MEDS: POLYETHYLENE (MIRALAX) 17 GM PACK PO SCH (09:27)
[2018-11-19] MEDS: DIVALPROEX DELAY RELEASE 125 MG TABEC PO SCH (09:30)
[2018-11-19] MEDS: DOXYCYCLINE HYCLATE 100 MG CAP PO SCH (09:31)
[2018-11-19] MEDS: SERTRALINE HCL 50 MG TABLET PO SCH (09:32)
[2018-11-19] MEDS: FUROSEMIDE 40 MG TAB PO SCH (09:32)
[2018-11-19] MEDS: cefTRIAXone SODIUM 2,000 MG in DEXTROSE 5% 50 ML IV SCH (10:53)
== END 2018-11-19 16:10 | DRG 871 ==
LOC: ED 07:29 → SUATTDRO 10:00 → 2E 10:00 → 4W 11-17 14:51